=== PATIENT | female | born 1990 | race Caucasian/White ===

== ENCOUNTER 2020-05-28 21:41 | Inpatient (IN) | payer BC, OTHER ==
--- NOTE | 2020-05-28 21:58 | EDM.PDOC ---
ED HPI GENERAL MEDICAL PROBLEM - General Chief Complaint: Abdominal Pain Stated Complaint: EMS ARRIVAL Time Seen by Provider: 05/28/20 21:43 Source of Information: Reports: Patient, EMS History Limitations: Reports: No Limitations - History of Present Illness INITIAL COMMENTS - FREE TEXT/NARRATIVE: 30-year-old female with history of chronic alcohol abuse presents with abdominal pain. She was seen earlier today at the ER and [place] and was diagnosed with pancreatitis. She was given 10 mg IV Reglan, fentanyl 50 MCG, 1 L LR, 8 mg morphine. Her lipase was 616. CT scan was performed there demonstrating acute pancreatitis with no necrosis or fluid collection. She was sent here for assessment for gallbladder etiology given lack of ultrasound at [place]. She complains of abdominal pain that has been constant and worsening over the last 3 days, described as sharp, diffuse, associated with nausea, vomiting. Exacerbated with alcohol. Denies fever, chills, chest pain, dysuria. She drinks 10 shots of vodka every day, her last 10 shots was yesterday. ROS: A 10-point review of systems, other than pertinent positives and negatives as stated per HPI, is otherwise negative PHYSICAL EXAM General: AOx4, GCS = 15, moderate distress HEENT: dry mucous membrane Neck: supple, no meningismus, no Kernig or Brudzinski Cardiac: S1S2 RRR Respiratory: CTAB, no crackles or rales, no wheezing Abdomen: diffuse ttp, epigastric > RUQ. no rebound or guarding, nondistended, no pulsatile mass. Back: nontender Musculoskeletal: NVI distally, no deformity Neuro: No focal deficits, CN 2 - 12 WNL. Upper Abdomen Pain Score (Numeric/FACES): 10 - Related Data Allergies Allergy/AdvReac Type Severity Reaction Status Date / Time No Known Allergies Allergy Verified 05/28/20 21:53 Home Meds: Home Meds . [No Known Home Meds] 05/28/20 [History] ED ROS GENERAL - Review of Systems Review Of Systems: Comprehensive ROS is negative, except as noted in HPI. ED EXAM, GI/ABD - Physical Exam Exam: See Below (see dictation) Course - Vital Signs Last Recorded V/S: Last Vital Signs Temp 97.7 F 05/28/20 21:48 Pulse 95 05/28/20 23:25 Resp 14 05/28/20 23:25 BP 144/99 H 05/28/20 23:25 Pulse Ox 96 05/28/20 23:25 - Orders/Labs/Meds Orders: Active Orders 24 hr Category Date Time Status Admission Status [Patient Status] [ADT] Stat ADT 05/28/20 23:32 Ordered Abdomen Ltd [US] Stat Exams 05/28/20 21:43 Taken CORONAVIRUS COVID-19 RAPID [MOLEC] Stat Lab 05/28/20 23:15 Received Labs: Laboratory Tests 05/28/20 05/28/20 Range/Units 22:18 22:18 WBC 10.76 (4.0-11.0) K/uL RBC 4.51 (4.30-5.90) M/uL Hgb 15.0 (12.0-16.0) g/dL Hct 43.4 (36.0-46.0) % MCV 96.2 (80.0-98.0) fL MCH 33.3 H (27.0-32.0) pg MCHC 34.6 (31.0-37.0) g/dL RDW Std Deviation 45.0 (28.0-62.0) fl RDW Coeff of Vanessa 13 (11.0-15.0) % Plt Count 120 L (150-400) K/uL MPV 9.50 (7.40-12.00) fL Neut % (Auto) 84.6 H (48.0-80.0) % Lymph % (Auto) 6.0 L (16.0-40.0) % [place] % (Auto) 9.3 (0.0-15.0) % Eos % (Auto) 0.0 (0.0-7.0) % Baso % (Auto) 0.1 (0.0-1.5) % Neut # (Auto) 9.1 H (1.4-5.7) K/uL Lymph # (Auto) 0.7 (0.6-2.4) K/uL [place] # (Auto) 1.0 H (0.0-0.8) K/uL Eos # (Auto) 0.0 (0.0-0.7) K/uL Baso # (Auto) 0.0 (0.0-0.1) K/uL Nucleated RBC % 0.0 /100WBC Nucleated RBCs # 0 K/uL Sodium 137 (136-145) mmol/L Potassium 3.6 (3.5-5.1) mmol/L Chloride 101 (98-107) mmol/L Carbon Dioxide 16.0 L (21.0-32.0) mmol/L BUN 2 L (7.0-18.0) mg/dL Creatinine 0.9 (0.6-1.0) mg/dL Est Cr Clr Drug Dosing 83.74 mL/min Estimated GFR (MDRD) > 60.0 ml/min Glucose 181 H (74-106) mg/dL Calcium 9.0 (8.5-10.1) mg/dL Phosphorus 3.9 (2.6-4.7) mg/dL Magnesium 1.4 L (1.8-2.4) mg/dL Total Bilirubin 1.1 H (0.2-1.0) mg/dL AST 103 H (15-37) IU/L ALT 96 H (14-63) IU/L Alkaline Phosphatase 73 (46-116) U/L Total Protein 7.3 (6.4-8.2) g/dL Albumin 3.8 (3.4-5.0) g/dL Globulin 3.5 (2.6-4.0) g/dL Albumin/Globulin Ratio 1.1 (0.9-1.6) Lipase 4738 H (73-393) U/L Ethyl Alcohol 51 mg/dL Meds: Medications Discontinued Medications Generic Name Dose Route Start Last Admin Trade Name Freq PRN Reason Stop Dose Admin Hydromorphone HCl 1 mg 05/28/20 21:59 05/28/20 22:20 Dilaudid IVPUSH 05/28/20 22:00 1 mg ONETIME ONE Administration Lactated Ringer's 1,000 mls @ 999 mls/hr 05/28/20 21:59 05/28/20 22:19 Ringers, Lactated IV 05/28/20 22:59 999 mls/hr .BOLUS ONE Administration - Re-Assessments/Exams Free Text/Narrative Re-Assessment/Exam: 05/28/20 23:[address] Burden, who agrees to admit to observation, she will assume care at this point. The hospitalist's documentation supersedes all other documentation on this patient with regard to any conflicts or discrepancies from this point forward. Any emergency conditions have been treated to the ability of the ED prior to admission. Departure - Departure Time of Disposition: 23:34 Disposition: Refer to Observation Condition: Good Clinical Impression: Pancreatitis - Discharge Information *PRESCRIPTION DRUG MONITORING PROGRAM REVIEWED*: Not Applicable *COPY OF PRESCRIPTION DRUG MONITORING REPORT IN PATIENT SAUMYA: Not Applicable Instructions: Acute Pancreatitis, [id number] Referrals: PCP,None [Primary Care Provider] - Forms: ED Department Discharge Sepsis Event Note (ED) - Focused Exam Vital Signs: Vital Signs Temp Pulse Resp BP Pulse Ox 05/28/20 23:25 95 14 144/99 H 96 05/28/20 21:48 97.7 F 87 20 147/106 H 98 - My Orders Last 24 Hours: My Active Orders 05/28/20 21:43 Abdomen Ltd [US] Stat 05/28/20 23:15 CORONAVIRUS COVID-19 RAPID [MOLEC] Stat 05/28/20 23:32 Admission Status [Patient Status] [ADT] Stat - Assessment/Plan Last 24 Hours: My Active Orders 05/28/20 21:43 Abdomen Ltd [US] Stat 05/28/20 23:15 CORONAVIRUS COVID-19 RAPID [MOLEC] Stat 05/28/20 23:32 Admission Status [Patient Status] [ADT] Stat
[2020-05-28] MEDS ORDERED: Lactated Ringers 1,000 ML IV ONE (21:59)
[2020-05-28] MEDS ORDERED: HYDROmorphone 1 MG/ML Syringe IVPUSH ONE (21:59)
[2020-05-28 22:47] LABS: BLOOD UREA NITROGEN,BUN 2 mg/dL (7.0-18.0); CHLORIDE,CL 101 mmol/L (98-107); GLUCOSE RANDOM 181 mg/dL (74-106); POTASSIUM,K 3.6 mmol/L (3.5-5.1); SODIUM,NA 137 mmol/L (136-145)
[2020-05-28 23:11] LABS: LIPASE 4738 U/L (73-393)
[2020-05-28] MEDS ORDERED: HYDROmorphone 2 MG/ML Syringe IVPUSH ONE (23:43)
[2020-05-28] MEDS ORDERED: LORazepam 2 MG/ML SDV IVPUSH ONE (23:43)
[2020-05-28] MEDS ORDERED: Lactated Ringers 1,000 ML IV SCH (23:45)
[2020-05-28] MEDS ORDERED: Ondansetron 4 MG/2 ML SDV IVPUSH PRN (23:56)
--- NOTE | 2020-05-28 23:58 | US ---
INDICATION: abd pain, r/o gallstones LIMITED ABDOMEN ULTRASOUND Technique: Multiple sonographic images were performed over the right upper quadrant. Comparison: 05/28/2020 CT abdomen and pelvis (report only). Findings: The gallbladder appears normal with no stones or wall thickening. There was no sonographic Michael`s sign. No intrahepatic biliary dilatation is seen and the common bile duct is normal in caliber, measuring 5 mm in diameter. The pancreas is prominent, possibly due to the acute pancreatitis shown on the earlier CT. A 2.2 x 2.7 x 1.3 centimeter fluid collection is seen medial to the gallbladder, also possibly related to the patient`s pancreatitis. The liver shows diffuse prominence of echogenicity suggesting fatty infiltration. The right kidney is unremarkable. IMPRESSION: 1. No cholelithiasis identified. 2. Prominent pancreas, possibly due to acute pancreatitis as suggested on earlier CT. 3. Nonspecific 2.2 x 2.7 x 1.3 centimeter fluid collection medial to the gallbladder, also possibly related to the patient`s acute pancreatitis. 4. Probable fatty infiltration of the liver. QUOC GUTHRIE MD [employer] Dictated by Emmanuel Guthrie MD @ 05/28/2020 11:55:25 PM Dictated by: Emmanuel Guthrie MD @ 05/28/2020 23:55:48 (Electronically Signed)
[2020-05-29] MEDS: Morphine 2 MG/ML SYRINGE IVPUSH PRN ×3 (01:30→11:06)
[2020-05-29] MEDS: LORazepam 2 MG/ML SDV IVPUSH PRN ×6 (04:10→23:29)
[2020-05-29 06:52] LABS: CARBON DIOXIDE,CO2 13.9 mmol/L (21.0-32.0); POTASSIUM,K 5.2 mmol/L (3.5-5.1)
[2020-05-29] MEDS: Pantoprazole 40 MG in Sodium Chloride 0.9% 10 ML IV SCH (08:07)
[2020-05-29] MEDS ORDERED: Lactated Ringers 1,000 ML IV ONE ×4 (09:26→17:38)
[2020-05-29] MEDS ORDERED: MVI, Adult with Vitamin K 10 ML, Thiamine 100 MG, Folic Acid 1 MG in Sodium Chloride 0.... IV ONE ×12 (10:18→20:49)
[2020-05-29] MEDS ORDERED: Magnesium Sulfate/Water 2 GM in Premix Bag 1 BAG IV ONE (10:18)
--- NOTE | 2020-05-29 10:20 | PCM.HP.2 ---
H&P History of Present Illness - General Date of Service: 05/29/20 Admit Problem/Dx: Admission Diagnosis/Problem Admission Diagnosis/Problem Pancreatitis - History of Present Illness Initial Comments - Free Text/Narative: 30-year-old female with history of chronic alcohol abuse presents with abdominal pain that started 2 days back. She was seen earlier at the ER at [place] where she received 10 mg IV Reglan, fentanyl 50 MCG, 1 L LR, 8 mg morphine. Her lipase was [address] scan was performed there demonstrating acute pancreatitis with no necrosis or fluid collection. Patient was sebt her for USG of Gallbladder to r/o gallbladder etiology given lack of ultrasound at [place]. She complains of generalized abdominal pain that has been constant and worsening over the last 2 days, described as sharp, diffuse, associated with nausea, vomiting. Denies fever, chills, chest pain, dysuria. She drinks 10 shots of vodka every day, her last 10 shots was yesterday. 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 US of GB was performed here didnt show any stones, did show possible fluid collection medical to gall bladder, although CT abdomen with contrast was negative for any collection. Patient is being admitted for further management. Upper Abdomen Pain Score (Numeric/FACES): 8 - Related Data Allergies/Adverse Reactions: Allergies Allergy/AdvReac Type Severity Reaction Status Date / Time No Known Allergies Allergy Verified 05/29/20 01:36 Home Medications: Home Meds . [No Known Home Meds] 05/28/20 [History] Past Medical History Gastrointestinal History: Reports: Pancreatitis Psychiatric History: Reports: Addiction Social & Family History - Family History Family Medical History: Noncontributory - Tobacco Use Smoking Status *Q: Never Smoker Years of Tobacco use: 10 Packs/Tins Daily: 0.5 - Caffeine Use Caffeine Use: Reports: Soda - Alcohol Use Days Per Week of Alcohol Use: 7 Number of Drinks Per Day: 11 Total Drinks Per Week: 77 Date of Last Drink: 05/28/20 Time of Last Drink: 11:00 - Recreational Drug Use Recreational Drug Use: No Drug Use in Last 12 Months: Yes Recreational Drug Type: Reports: Cocaine, Marijuana/Hashish Recreational Drug Use Frequency: Socially H&P Review of Systems - Review of Systems: Review Of Systems: See Below General: Reports: Malaise, Weakness, Fatigue. Denies: Fever, Chills Pulmonary: Denies: Shortness of Breath, Wheezing Cardiovascular: Denies: Chest Pain, Palpitations Gastrointestinal: Reports: Abdominal Pain, Anorexia, Decreased Appetite, Nausea, Vomiting. Denies: Black Stool, Bloody Stool, Constipation, Diarrhea, Difficulty Swallowing Genitourinary: Denies: Dysuria, Frequency, Burning Musculoskeletal: Denies: Neck Pain, Shoulder Pain Skin: Denies: Cyanosis, Jaundice, Mottled Psychiatric: Reports: Anxiety. Denies: Confusion, Depression, Mood Lability, Agitation, Suicidal Ideation, Homicidal Ideation Neurological: Denies: Confusion, Dizziness Hematologic/Lymphatic: Denies: Easy Bleeding, Easy Bruising Exam - Exam Exam: See Below - Vital Signs Vital Signs: Last Vital Signs Temp 36.6 C 05/29/20 08:00 Pulse 123 H 05/29/20 08:00 Resp 17 05/29/20 08:00 BP 163/104 H 05/29/20 08:00 Pulse Ox 97 05/29/20 08:00 Weight: 74.4 kg - Exam General: Alert, Oriented, Cooperative, Mild Distress Neck: Supple, Trachea Midline Lungs: Clear to Auscultation, Normal Respiratory Effort Cardiovascular: Regular Rate, Regular Rhythm GI/Abdominal Exam: Normal Bowel Sounds, Soft, No Mass, Tender. No: Non-Tender, Abnormal Bowel Sounds Extremities: Normal Inspection, Normal Range of Motion Neuro Extensive - Mental Status: Alert, Oriented x3, Normal Cognition. No: Disorientation to Person, Disorientation to Place Psychiatric: Alert, Normal Affect, Normal Mood, Withdrawal Symptoms - Patient Data Lab Results Last 24 hrs: Laboratory Results - last 24 hr 05/28/20 05/28/20 05/28/20 Range/Units 22:18 22:18 23:15 WBC 10.76 (4.0-11.0) K/uL RBC 4.51 (4.30-5.90) M/uL Hgb 15.0 (12.0-16.0) g/dL Hct 43.4 (36.0-46.0) % MCV 96.2 (80.0-98.0) fL MCH 33.3 H (27.0-32.0) pg MCHC 34.6 (31.0-37.0) g/dL RDW Std Deviation 45.0 (28.0-62.0) fl RDW Coeff of Vanessa 13 (11.0-15.0) % Plt Count 120 L (150-400) K/uL MPV 9.50 (7.40-12.00) fL Neut % (Auto) 84.6 H (48.0-80.0) % Lymph % (Auto) 6.0 L (16.0-40.0) % [place] % (Auto) 9.3 (0.0-15.0) % Eos % (Auto) 0.0 (0.0-7.0) % Baso % (Auto) 0.1 (0.0-1.5) % Neut # (Auto) 9.1 H (1.4-5.7) K/uL Lymph # (Auto) 0.7 (0.6-2.4) K/uL [place] # (Auto) 1.0 H (0.0-0.8) K/uL Eos # (Auto) 0.0 (0.0-0.7) K/uL Baso # (Auto) 0.0 (0.0-0.1) K/uL Nucleated RBC % 0.0 /100WBC Nucleated RBCs # 0 K/uL Sodium 137 (136-145) mmol/L Potassium 3.6 (3.5-5.1) mmol/L Chloride 101 (98-107) mmol/L Carbon Dioxide 16.0 L (21.0-32.0) mmol/L BUN 2 L (7.0-18.0) mg/dL Creatinine 0.9 (0.6-1.0) mg/dL Est Cr Clr Drug Dosing 83.74 mL/min Estimated GFR (MDRD) > 60.0 ml/min Glucose 181 H (74-106) mg/dL Calcium 9.0 (8.5-10.1) mg/dL Phosphorus 3.9 (2.6-4.7) mg/dL Magnesium 1.4 L (1.8-2.4) mg/dL Total Bilirubin 1.1 H (0.2-1.0) mg/dL AST 103 H (15-37) IU/L ALT 96 H (14-63) IU/L Alkaline Phosphatase 73 (46-116) U/L Total Protein 7.3 (6.4-8.2) g/dL Albumin 3.8 (3.4-5.0) g/dL Globulin 3.5 (2.6-4.0) g/dL Albumin/Globulin Ratio 1.1 (0.9-1.6) Lipase 4738 H (73-393) U/L Ethyl Alcohol 51 mg/dL COVID-19 (NEREYDA) NEGATIVE (NEGATIVE) 05/29/20 05/29/20 Range/Units 06:00 06:00 WBC 12.80 H (4.0-11.0) K/uL RBC 4.43 (4.30-5.90) M/uL Hgb 14.8 (12.0-16.0) g/dL Hct 44.3 (36.0-46.0) % MCV 100.0 H (80.0-98.0) fL MCH 33.4 H (27.0-32.0) pg MCHC 33.4 (31.0-37.0) g/dL RDW Std Deviation 48.5 (28.0-62.0) fl RDW Coeff of Vanessa 13 (11.0-15.0) % Plt Count 120 L (150-400) K/uL MPV 10.20 (7.40-12.00) fL Neut % (Auto) 85.6 H (48.0-80.0) % Lymph % (Auto) 4.6 L (16.0-40.0) % [place] % (Auto) 9.8 (0.0-15.0) % Eos % (Auto) 0.0 (0.0-7.0) % Baso % (Auto) 0.0 (0.0-1.5) % Neut # (Auto) 11.0 H (1.4-5.7) K/uL Lymph # (Auto) 0.6 (0.6-2.4) K/uL Haskell # (Auto) 1.3 H (0.0-0.8) K/uL Eos # (Auto) 0.0 (0.0-0.7) K/uL Baso # (Auto) 0.0 (0.0-0.1) K/uL Nucleated RBC % 0.0 /100WBC Nucleated RBCs # 0 K/uL Sodium 134 L (136-145) mmol/L Potassium 5.2 H (3.5-5.1) mmol/L Chloride 97 L (98-107) mmol/L Carbon Dioxide 13.9 L (21.0-32.0) mmol/L BUN 3 L (7.0-18.0) mg/dL Creatinine 1.5 H (0.6-1.0) mg/dL Est Cr Clr Drug Dosing 50.24 mL/min Estimated GFR (MDRD) 41.3 ml/min Glucose 284 H (74-106) mg/dL Calcium 9.4 (8.5-10.1) mg/dL Phosphorus 4.8 H (2.6-4.7) mg/dL Magnesium 1.4 L (1.8-2.4) mg/dL Total Bilirubin (0.2-1.0) mg/dL AST (15-37) IU/L ALT (14-63) IU/L Alkaline Phosphatase (46-116) U/L Total Protein (6.4-8.2) g/dL Albumin (3.4-5.0) g/dL Globulin (2.6-4.0) g/dL Albumin/Globulin Ratio (0.9-1.6) Lipase 5556 H (73-393) U/L Ethyl Alcohol mg/dL COVID-19 (NEREYDA) (NEGATIVE) Result Diagrams: 05/29/20 06:00 05/29/20 06:00 Sepsis Event Note - Evaluation Sepsis Screening Result: Sepsis Risk - Focused Exam Vital Signs: Vital Signs Temp Pulse Resp BP Pulse Ox Pulse Ox 05/29/20 08:00 36.6 C 123 H 17 163/104 H 97 05/29/20 07:35 36.6 C 126 H 18 168/109 H 99 05/29/20 04:00 36.8 C 95 17 145/90 H 98 05/29/20 01:02 95 05/29/20 00:33 37.0 C 110 H 15 145/99 H 95 05/29/20 00:16 121 H 14 134/88 97 05/28/20 23:25 95 14 144/99 H 96 Date Exam was Performed: 05/29/20 Time Exam was Performed: 12:31 - Problem List (1) Alcohol abuse SNOMED Code(s): 25592976 ICD Code: F10.10 - ALCOHOL ABUSE, UNCOMPLICATED Status: Acute Current Visit: Yes (2) Alcohol withdrawal SNOMED Code(s): 074293179 ICD Code: F10.239 - ALCOHOL DEPENDENCE WITH WITHDRAWAL, UNSPECIFIED Status: Acute Current Visit: Yes (3) Pancreatitis SNOMED Code(s): 53729552 ICD Code: K85.90 - ACUTE PANCREATITIS WITHOUT NECROSIS OR INFECTION, UNSP Status: Acute Current Visit: Yes (4) Leucocytosis SNOMED Code(s): 435633034, 143110396 ICD Code: D72.829 - ELEVATED WHITE BLOOD CELL COUNT, UNSPECIFIED Status: Acute Current Visit: Yes Problem List Initiated/Reviewed/Updated: Yes Orders Last 24hrs: Active Orders 24 hr Category Date Time Status Admission Status [Patient Status] [ADT] Stat ADT 05/28/20 23:32 Active Ambulate [RC] ASDIRECTED Care 05/29/20 00:04 Active CIWAA Assessment [RC] Q4H Care 05/29/20 00:00 Active Oxygen Therapy [RC] ASDIRECTED Care 05/29/20 00:04 Active Vital Signs [RC] Q4H Care 05/28/20 23:55 Active NPO [Nothing Per Oral Diet] [DIET] Diet 05/29/20 Breakfast Active LORazepam [Ativan] Med 05/28/20 23:58 Active See Protocol IVPUSH Q4H PRN Lactated Ringers [Ringers, Lactated] 1,000 ml Med 05/29/20 00:15 Active IV ASDIRECTED Lactated Ringers [Ringers, Lactated] 1,000 ml Med 05/29/20 09:26 Active IV ONETIME MVI, Adult with Vitamin K [Infuvite Adult] 10 ml Med 05/29/20 10:18 Ordered Thiamine [Vitamin B-1] 100 mg Folic Acid 1 mg Sodium Chloride 0.9% [Normal Saline] 1,000 ml IV ONETIME Magnesium Sulfate/Water [Magnesium Sulfate in Water Med 05/29/20 10:18 Ordered Premix] 2 gm Premix Bag 1 bag IV ONETIME Morphine Med 05/28/20 23:55 Active 2 mg IVPUSH Q4H PRN Ondansetron [Zofran] Med 05/28/20 23:56 Active 4 mg IVPUSH Q4H PRN Pantoprazole [ProTONIX IV] 40 mg Med 05/29/20 09:00 Active Sodium Chloride 0.9% [Normal Saline] 10 ml IV DAILY Piperacillin/Tazobactam [Piperacil-Tazobact] 3.375 gm Med 05/29/20 10:30 Ordered Sodium Chloride 0.9% [Normal Saline] 50 ml IV Q8H chlordiazePOXIDE [Librium] Med 05/29/20 10:30 Ordered 25 mg PO BID Medication Orders Pantoprazole Sodium 40 mg/ (Sodium Chloride) 10 mls @ 300 mls/hr IV DAILY KOREY Last Admin: 05/29/20 08:07 Dose: 300 mls/hr Documented by: SWATI Lactated Ringer's (Ringers, Lactated) 1,000 mls @ 125 mls/hr IV ASDIRECTED KOREY Lactated Ringer's (Ringers, Lactated) 1,000 mls @ 999 mls/hr IV ONETIME ONE Stop: 05/29/20 10:26 Last Admin: 05/29/20 09:33 Dose: 999 mls/hr Documented by: RHONA Piperacillin Sod/Tazobactam (Sod 3.375 gm/ Sodium Chloride) 100 mls @ 200 mls/hr IV Q8H KOREY Magnesium Sulfate 2 gm/ Premix 50 mls @ 50 mls/hr IV ONETIME ONE Stop: 05/29/20 11:17 Multivitamins/Minerals 10 ml/Thiamine HCl 100 mg/ Folic Acid 1 mg/ Sodium Chloride 1,011.2 mls @ 200 mls/hr IV ONETIME ONE Stop: 05/29/20 15:21 Lorazepam (Ativan) 0 mg IVPUSH Q4H PRN; Protocol PRN Reason: Withdrawal Symptoms Last Admin: 05/29/20 08:10 Dose: 2 mg Documented by: Admin: 05/29/20 04:10 Dose: 2 mg Documented by: SANTIAGO Morphine Sulfate (Morphine) 2 mg IVPUSH Q4H PRN PRN Reason: Pain Last Admin: 05/29/20 06:16 Dose: 2 mg Documented by: Admin: 05/29/20 01:30 Dose: 2 mg Documented by: SANTIAGO Ondansetron HCl (Zofran) 4 mg IVPUSH Q4H PRN PRN Reason: Nausea/Vomitting Last Admin: 05/29/20 07:10 Dose: 4 mg Documented by: SANTIAGO Assessment/Plan Comment:: 30 y/o F admitted for pancreatitis Keep patient NPO Start IV fluids Start IV PPI This AM labs significant for leucocytosis, along with tachycardia, risk for sepsis Admit to tele Will check UA to r/o UTI Start IV Zosyn,obtain Blood cultures,obtain lactate Give another bolus of IV fluids LR Will consider obtaining repeat CT abdomen with contrast in AM if kidney function is better Lovenox for DVT ppx Monitor and replete electrolytes as needed
[2020-05-29] MEDS: Lactated Ringers 1,000 ML IV SCH ×3 (10:42→20:59)
[2020-05-29] MEDS: Piperacillin/Tazobactam 3.375 GM in Sodium Chloride 0.9% 100 ML IV SCH ×2 (10:43→18:44)
[2020-05-29] MEDS: chlordiazePOXIDE 25 MG Cap PO SCH ×2 (10:50→20:07)
[2020-05-29 13:30] LABS: CARBON DIOXIDE,CO2 16.1 mmol/L (21.0-32.0); POTASSIUM,K 4.9 mmol/L (3.5-5.1)
--- NOTE | 2020-05-29 14:13 | PN ---
THC Physician - Brief Progress [id number]/12/2020 13:53[facility] Jermaine castillo [place] - SUHAIL (JOSE ANTONIO) - SUHAIL PELON PREEZJeffersonDate of Service 05/29/2020 13:53HPI/Events of Note eICU admission note:30-year-old female with no significant past medical history prese nted to the hospital with abdominal pain. There was a fluid collection seen on ultrasound next toGal lbladderPatient was found to have very elevated amylase and lipase. Her creatinine also started to c ome up with hyperkalemiaPatient was admitted to the ICU for fluid resuscitation for her lactic acidos is and acute pancreatitisPatient is hemodynamically stable right now and she is receiving 30 cc/kgPat ient is tachycardic to 130s sinus tachycardiaImpression:Continue wide spectrum antibioticBlood cultur esSurgery consult as soon as possibleContinue fluid resuscitation with IV fluid 30 cc/kg of Ringer la ctatePatient afterward to be on 200 mm/hRepeat lactic acid in 4 hours and every 4 hours until normali zedGI and DVT prophylaxisCase was discussed with the bedside nurse and the primary care physicianPati ent was seen on camera and she seems to be stableThanks so much for allowing us to take care of your patient.Interventions Major-Other: pancreatitisMinor-Clinical assessment - ordering diagnostic testsE lectronically Signed by: TOMEKA CANTU) on 05/29/2020 14:12
--- NOTE | 2020-05-29 15:21 | PCM.SN.2 ---
- Free Text/Narrative Note: pt seen, chart reviewed; physical exam, us, hx did not support cholecystitis or gallstone pancreatitis; with pt's hx of drinking and pain of 6 mos or 3 wks hx, likely alcohol pancreatitis; prev CT revealed acute pancreatitis with fluid, likely same fluid collection seen in US here; agree w NPO, agressive IVF resuscitation, abx; may benefit from repeat CT w contrast to stage pancreatitis, or if concern about ELLIOTT, would consider MRCP; would follow pt w you [id number]
[2020-05-29] MEDS: Enoxaparin 40 MG/0.4 ML Syringe SUBCUT SCH (15:52)
[2020-05-29] MEDS ORDERED: LORazepam 2 MG/ML SDV ONE (17:29)
--- NOTE | 2020-05-29 17:48 | PN ---
THC Physician - Brief Progress [id number]/12/2020 16:15[facility] Jermaine Mejía [place] - SUHAIL (JOSE ANTONIO) - PELON HARTDate of Service 05/29/2020 16:15HPI/Events of Note Sepsis Reassessment Focused ExamPatient examined via telepresence : the patient is alert and or iented. she answered my questions. patient's pain is getting better. I have performed a sepsis reasse ssment focused exam. Physical exam/systems review findings and plan:continue fluids ressus. rech ad lactic acid in 4 hours.Interventions Major-Sepsis - evaluation and managementMinor-Clinical asses sment - ordering diagnostic tests
[2020-05-29] MEDS ORDERED: chlordiazePOXIDE 25 MG Cap PO ONE (18:19)
[2020-05-30] MEDS ORDERED: Vancomycin 1 GM AdvVial ONE (00:23)
[2020-05-30] MEDS ORDERED: Sodium Chloride 0.9% 250 ML ONE (00:24)
[2020-05-30] MEDS: Piperacillin/Tazobactam 3.375 GM in Sodium Chloride 0.9% 100 ML IV SCH ×3 (02:49→18:19)
[2020-05-30] MEDS: Lactated Ringers 1,000 ML IV SCH ×4 (03:54→19:52)
[2020-05-30 06:26] LABS: BLOOD UREA NITROGEN,BUN 7 mg/dL (7.0-18.0); CARBON DIOXIDE,CO2 21.2 mmol/L (21.0-32.0); CHLORIDE,CL 97 mmol/L (98-107); GLUCOSE RANDOM 249 mg/dL (74-106); POTASSIUM,K 4.3 mmol/L (3.5-5.1); SODIUM,NA 131 mmol/L (136-145)
[2020-05-30] MEDS ORDERED: Lactated Ringers 1,000 ML IV ONE (08:05)
[2020-05-30] MEDS ORDERED: MAGNESIUM SULFATE IV ONE ×2 (08:09→08:30)
[2020-05-30] MEDS ORDERED: POTASSIUM PHOSPHATES IV ONE ×2 (08:09→08:30)
[2020-05-30] MEDS ORDERED: SODIUM CHLORIDE IV ONE ×2 (08:09→08:30)
[2020-05-30] MEDS: Pantoprazole 40 MG in Sodium Chloride 0.9% 10 ML IV SCH (08:42)
[2020-05-30 08:43] LABS: HEMOGLOBIN A1C 5.1 % (4.5-6.2)
[2020-05-30] MEDS: Folic Acid 50 MG/10 ML MDV IV SCH (08:43)
[2020-05-30] MEDS: chlordiazePOXIDE 25 MG Cap PO SCH ×2 (08:44→20:58)
[2020-05-30] MEDS: Thiamine 100 MG in Sodium Chloride 0.9% 100 ML IV SCH (09:21)
--- NOTE | 2020-05-30 09:21 | CONS ---
DATE OF CONSULTATION: 05/29/2020 DATE OF : 1990 PRIMARY CARE PHYSICIAN: None PCP This is a consult from Dr. Burden. CONSULTING QUESTION: Pancreatitis. HISTORY OF PRESENT ILLNESS: The patient is a 30-year-old lady, has a long history of alcohol abuse, and per the patient is drinking 10 shots of vodka every day, and seems to have abdominal pain for several months and hurts with drinking. For the last 3 days, pain is really getting very bad. She says she got to the emergency room at [place] and got a CAT scan and did not show anything. Concern about gallbladder, transferred the patient to our facility for gallbladder study. Ultrasounds done does not show any stone or ductal dilatation, and common bile duct is normal at 5 mm. Also, ultrasound shows prominent pancreas, possibly due to pancreatitis, and Surgery was consulted. Currently, the patient is a little bit groggy and drowsy. Apparently, she already got some pain medication, and the patient has tried very hard to stay awake to carry on a conversation. Denied jaundice, dark urine, white stool, and denied black stool. Denied bright red blood per rectum. Admits the pain has been on and off for a long time, 6 months to a week, anyway it is not a 1-day situation and hurts whenever she drinks. MEDICATION: Please refer to nursing note for details. MEDICAL HISTORY: Denied diabetes, NH, CVA, hypertension. PAST SURGICAL HISTORY: No surgery in the past, and no babies. PHYSICAL EXAMINATION: GENERAL: The patient is in and out of drowsiness, probably just getting some pain medication. However, when the patient is awake, alert, eyes wide open, she is moving around in her bed as if there is nothing. HEENT: Normocephalic and atraumatic. Sclerae are anicteric. LUNGS: Clear to auscultation. HEART: Regular rate and rhythm. ABDOMEN: Mildly distended, but soft. Pain in the left upper quadrant. No rebound tenderness. No surgical scar. No hernia. LABORATORY DATA: Upon consultation, white count is 12.8; H and H are 14.8 and 44; and platelets are 120, low. Lactate is 6.9, high. Sodium 132, potassium 4.9, calcium 9.6, BUN is 4, creatinine is 1.3, T-bilirubin is 1.1. AST and ALT are elevated at 103 and 96, alkaline phosphatase 73, lipase is 5556. Ethyl alcohol was 51 yesterday. COVID-19 negative. IMPRESSION: Abdominal pain, quite relieved with whatever pain medication or morphine given. Although the patient complained the pain is a 5 on pain scale, she is really moving in her bed as if there is nothing going on of course we can fall back to drowsiness. No right upper quadrant tenderness, and ultrasound does not show any ductal dilatation or wall thickening. There is some collection around the gallbladder fossa. We will be not be surprised it is probably from the pancreatitis. Does not seem any indication for gallstone pancreatitis as gallstone pancreatitis usually has pancreas and lipase running into 20,000 or 50,000 area. Also, gallstone pancreatitis usually has a rapid shot up to 40,000 and then rapid decay in about a day or 36 hours to normal. That is the classic pattern of gallstone pancreatitis, which is not the case of the patient. The patient has a mildly elevated amylase and lipase and with a long history of alcohol, likely this is alcoholic pancreatitis. Await CAT scan with contrast to look at the pancreas and to stage the pancreatitis staging. For the time being, there is no surgical intervention for her. We will continue to follow the patient with you. N.p.o., IV fluid resuscitation, and await the CAT scan imaging from outside as with the patient has elevated creatinine, not a good idea to repeat CAT scan with contrast. Thanks for the consult. We will follow the patient with you. As always, thank you for the kind referral. AMY / GOPAL /[id number]
--- NOTE | 2020-05-30 09:22 | PN ---
THC Physician - Brief Progress [id number]/13/2020 08:52[facility] Jermaine castillo, DICK - RAKESHN (MARLEEN) - SUHAIL PELON PEREZJeffersonDate of Service 05/30/2020 08:52HPI/Events of Note eICU Progress [id number] female presented with abdominal pain in the setting of EtOH abuse. There was a fluid collection seen on ultrasound next to gallbladder. Concurrent elevati on of lipase, lactic acid, creatinine. Underwent fluid resuscitation, and was started on empiric ant ibiotics.Cameraxpatient is asleep, appears to be comfortable and in no distress nextVitalsxblood pres sure 134/94, heart rate 113 appears to be normal sinus rhythm, saturating 96% on room airEMR notes an d objective data reviewedHas received close of 6 L of crystalloid resuscitationLipase downtrending la st 4158, lactic acid improving last 2.4, serum creatinine has normalizedCOVID PCR negativeMicro revie wxno available blood cultures are seen (bedside RN reports they were sent and pending at this time), UA is negativeeICU impressionAcute nonnecrotizing alcoholic pancreatitisAlcohol abuseAlcohol withdraw al/risk ofLactic acidosisSinus tachycardiaQI measuresxVTE prophylaxis, GI prophylaxis, glycemic contr oleICU recommendations- Presentation is consistent with acute pancreatitis with lab derangements expl ained by the aforementioned etiology, and in the absence of any extra pancreatic infection which the patient has no evidence of having would recommend discontinuation of antibiotics once pending blood c ultures come back negative. -Trend lactic acid untill clear- Continue fluid resuscitation with lactat ed Ringer at 200 cc an hour during the initial 24 to 48 hours targeting urine output greater than 0.5 to 1 cc/kg/h, hematocrit goal between 35 to 44%- Pain control PRN- Alcohol withdrawal management per institutional policy, noted to be on fixed dose Librium- Continue thiamine and folic acid supplement ation- QI measures notedxVTE prophylaxis with Lovenox, PPI, adequate glycemic control with blood suga r target between 140 - 180Discussed care with bedside RN.Thank you for allowing us to participate in the care of your patient. The patient is critically ill with severe metabolic derangement(s) and req uires high complexity decision making for assessment and support including volume resuscitation; Crit ical care; 40 minutes total evaluation time Interventions Major-Hypovolemia - evaluation and treatmen t with fluidsMinor-Communication with other healthcare providers and/or family, Other: Severe alcohol ic pancreatitis
--- NOTE | 2020-05-30 11:36 | PCM.PN ---
- General Info Date of Service: 05/30/20 Admission Dx/Problem (Free Text): Admission Diagnosis/Problem Admission Diagnosis/Problem Pancreatitis Subjective Update: Feeling ok this morning. No chest pain or SOB. Denies hallucinations this morning. Tremors continue along with ataxia Functional Status: Reports: Pain Controlled, Ambulating. Denies: Tolerating Diet - Review of Systems General: Reports: No Symptoms. Denies: Fatigue, Malaise Pulmonary: Reports: No Symptoms. Denies: Shortness of Breath Cardiovascular: Reports: No Symptoms. Denies: Chest Pain Gastrointestinal: Reports: No Symptoms. Denies: Abdominal Pain, Nausea, Vomiting Genitourinary: Reports: No Symptoms. Denies: Dysuria, Frequency Neurological: Reports: Tremors, Difficulty Walking Psychiatric: Denies: Anxiety, Agitation, Hallucinations, Suicidal Ideation - Patient Data Vitals - Most Recent: Last Vital Signs Temp 99.5 F 05/30/20 08:00 Pulse 120 H 05/29/20 19:00 Resp 38 H 05/30/20 10:00 BP 153/109 H 05/30/20 10:00 Pulse Ox 92 L 05/30/20 10:00 Weight - Most Recent: 79.379 kg I&O - Last 24 Hours: Intake & Output 05/29/20 05/30/20 05/30/20 22:59 06:59 14:59 Intake Total 1220 4536 Output Total 200 1600 Balance 1020 2936 Lab Results Last 24 Hours: Laboratory Results - last 24 hr 05/29/20 05/29/20 05/29/20 Range/Units 12:46 12:59 14:20 WBC (4.0-11.0) K/uL RBC (4.30-5.90) M/uL Hgb (12.0-16.0) g/dL Hct (36.0-46.0) % MCV (80.0-98.0) fL MCH (27.0-32.0) pg MCHC (31.0-37.0) g/dL RDW Std Deviation (28.0-62.0) fl RDW Coeff of Vanessa (11.0-15.0) % Plt Count (150-400) K/uL MPV (7.40-12.00) fL Neut % (Auto) (48.0-80.0) % Lymph % (Auto) (16.0-40.0) % [place] % (Auto) (0.0-15.0) % Eos % (Auto) (0.0-7.0) % Baso % (Auto) (0.0-1.5) % Neut # (Auto) (1.4-5.7) K/uL Lymph # (Auto) (0.6-2.4) K/uL [place] # (Auto) (0.0-0.8) K/uL Eos # (Auto) (0.0-0.7) K/uL Baso # (Auto) (0.0-0.1) K/uL Nucleated RBC % /100WBC Nucleated RBCs # K/uL ABG pH 7.347 L (7.35-7.45) ABG pCO2 28 L (35-45) mmHG ABG pO2 123 H (75-100) mmHG ABG HCO3 15 L (22-26) mEq/L ABG Total CO2 13.8 ABG Base Excess -8.9 L (-2.0-2.0) Lactate 6.9 H* (0.20-2.00) mmol/L Sodium 132 L (136-145) mmol/L Potassium 4.9 (3.5-5.1) mmol/L Chloride 98 (98-107) mmol/L Carbon Dioxide 16.1 L (21.0-32.0) mmol/L BUN 4 L (7.0-18.0) mg/dL Creatinine 1.3 H (0.6-1.0) mg/dL Est Cr Clr Drug Dosing 57.97 mL/min Estimated GFR (MDRD) 48.8 ml/min Glucose 290 H (74-106) mg/dL POC Glucose (60-110) mg/dL Hemoglobin A1c (4.5-6.2) % Calcium 9.6 (8.5-10.1) mg/dL Phosphorus (2.6-4.7) mg/dL Magnesium (1.8-2.4) mg/dL Total Bilirubin (0.2-1.0) mg/dL AST (15-37) IU/L ALT (14-63) IU/L Alkaline Phosphatase (46-116) U/L Total Protein (6.4-8.2) g/dL Albumin (3.4-5.0) g/dL Globulin (2.6-4.0) g/dL Albumin/Globulin Ratio (0.9-1.6) Triglycerides (0-200) mg/dL Cholesterol (50-200) mg/dL LDL Cholesterol, Calc (60-180) mg/dL VLDL Cholesterol (5-55) mg/dL HDL Cholesterol (40-60) mg/dL Cholesterol/HDL Ratio (3.3-6.0) Lipase (73-393) U/L Urine Color Urine Appearance Urine pH (5.0-8.0) Ur Specific Howe (1.001-1.035) Urine Protein (NEGATIVE) mg/dL Urine Glucose (UA) (NEGATIVE) mg/dL Urine Ketones (NEGATIVE) mg/dL Urine Occult Blood (NEGATIVE) Urine Nitrite (NEGATIVE) Urine Bilirubin (NEGATIVE) Urine Urobilinogen (<2.0) EU/dL Ur Leukocyte Esterase (NEGATIVE) Urine RBC (0-2/HPF) Urine WBC (0-5/HPF) Ur Epithelial Cells (NONE-FEW) Urine Bacteria (NEGATIVE) 05/29/20 05/29/20 05/29/20 Range/Units 16:47 17:26 21:31 WBC (4.0-11.0) K/uL RBC (4.30-5.90) M/uL Hgb (12.0-16.0) g/dL Hct (36.0-46.0) % MCV (80.0-98.0) fL MCH (27.0-32.0) pg MCHC (31.0-37.0) g/dL RDW Std Deviation (28.0-62.0) fl RDW Coeff of Vanessa (11.0-15.0) % Plt Count (150-400) K/uL MPV (7.40-12.00) fL Neut % (Auto) (48.0-80.0) % Lymph % (Auto) (16.0-40.0) % [place] % (Auto) (0.0-15.0) % Eos % (Auto) (0.0-7.0) % Baso % (Auto) (0.0-1.5) % Neut # (Auto) (1.4-5.7) K/uL Lymph # (Auto) (0.6-2.4) K/uL [place] # (Auto) (0.0-0.8) K/uL Eos # (Auto) (0.0-0.7) K/uL Baso # (Auto) (0.0-0.1) K/uL Nucleated RBC % /100WBC Nucleated RBCs # K/uL ABG pH (7.35-7.45) ABG pCO2 (35-45) mmHG ABG pO2 (75-100) mmHG ABG HCO3 (22-26) mEq/L ABG Total CO2 ABG Base Excess (-2.0-2.0) Lactate 4.1 H* 3.9 H* (0.20-2.00) mmol/L Sodium (136-145) mmol/L Potassium (3.5-5.1) mmol/L Chloride (98-107) mmol/L Carbon Dioxide (21.0-32.0) mmol/L BUN (7.0-18.0) mg/dL Creatinine (0.6-1.0) mg/dL Est Cr Clr Drug Dosing mL/min Estimated GFR (MDRD) ml/min Glucose (74-106) mg/dL POC Glucose (60-110) mg/dL Hemoglobin A1c (4.5-6.2) % Calcium (8.5-10.1) mg/dL Phosphorus (2.6-4.7) mg/dL Magnesium (1.8-2.4) mg/dL Total Bilirubin (0.2-1.0) mg/dL AST (15-37) IU/L ALT (14-63) IU/L Alkaline Phosphatase (46-116) U/L Total Protein (6.4-8.2) g/dL Albumin (3.4-5.0) g/dL Globulin (2.6-4.0) g/dL Albumin/Globulin Ratio (0.9-1.6) Triglycerides (0-200) mg/dL Cholesterol (50-200) mg/dL LDL Cholesterol, Calc (60-180) mg/dL VLDL Cholesterol (5-55) mg/dL HDL Cholesterol (40-60) mg/dL Cholesterol/HDL Ratio (3.3-6.0) Lipase (73-393) U/L Urine Color DARK YELLOW Urine Appearance CLEAR Urine pH 5.5 (5.0-8.0) Ur Specific [place] 1.025 (1.001-1.035) Urine Protein 30 H (NEGATIVE) mg/dL Urine Glucose (UA) 500 H (NEGATIVE) mg/dL Urine Ketones 15 H (NEGATIVE) mg/dL Urine Occult Blood LARGE H (NEGATIVE) Urine Nitrite NEGATIVE (NEGATIVE) Urine Bilirubin NEGATIVE (NEGATIVE) Urine Urobilinogen 0.2 (<2.0) EU/dL Ur Leukocyte Esterase NEGATIVE (NEGATIVE) Urine RBC 0-3 (0-2/HPF) Urine WBC 0-2 (0-5/HPF) Ur Epithelial Cells FEW (NONE-FEW) Urine Bacteria RARE (NEGATIVE) 05/30/20 05/30/20 05/30/20 Range/Units 01:33 05:35 05:35 WBC 10.53 (4.0-11.0) K/uL RBC 3.80 L (4.30-5.90) M/uL Hgb 12.7 (12.0-16.0) g/dL Hct 37.5 (36.0-46.0) % MCV 98.7 H (80.0-98.0) fL MCH 33.4 H (27.0-32.0) pg MCHC 33.9 (31.0-37.0) g/dL RDW Std Deviation 48.2 (28.0-62.0) fl RDW Coeff of Vanessa 13 (11.0-15.0) % Plt Count 84 L (150-400) K/uL MPV 10.90 (7.40-12.00) fL Neut % (Auto) 70.8 (48.0-80.0) % Lymph % (Auto) 13.6 L (16.0-40.0) % [place] % (Auto) 15.5 H (0.0-15.0) % Eos % (Auto) 0.0 (0.0-7.0) % Baso % (Auto) 0.1 (0.0-1.5) % Neut # (Auto) 7.5 H (1.4-5.7) K/uL Lymph # (Auto) 1.4 (0.6-2.4) K/uL [place] # (Auto) 1.6 H (0.0-0.8) K/uL Eos # (Auto) 0.0 (0.0-0.7) K/uL Baso # (Auto) 0.0 (0.0-0.1) K/uL Nucleated RBC % 0.0 /100WBC Nucleated RBCs # 0 K/uL ABG pH (7.35-7.45) ABG pCO2 (35-45) mmHG ABG pO2 (75-100) mmHG ABG HCO3 (22-26) mEq/L ABG Total CO2 ABG Base Excess (-2.0-2.0) Lactate 2.3 H* (0.20-2.00) mmol/L Sodium 131 L (136-145) mmol/L Potassium 4.3 (3.5-5.1) mmol/L Chloride 97 L (98-107) mmol/L Carbon Dioxide 21.2 (21.0-32.0) mmol/L BUN 7 (7.0-18.0) mg/dL Creatinine 0.9 (0.6-1.0) mg/dL Est Cr Clr Drug Dosing 83.74 mL/min Estimated GFR (MDRD) > 60.0 ml/min Glucose 249 H (74-106) mg/dL POC Glucose (60-110) mg/dL Hemoglobin A1c (4.5-6.2) % Calcium 8.4 L (8.5-10.1) mg/dL Phosphorus 2.1 L (2.6-4.7) mg/dL Magnesium 1.6 L (1.8-2.4) mg/dL Total Bilirubin 6.0 H (0.2-1.0) mg/dL AST 113 H (15-37) IU/L ALT 59 (14-63) IU/L Alkaline Phosphatase 57 (46-116) U/L Total Protein 5.7 L (6.4-8.2) g/dL Albumin 2.9 L (3.4-5.0) g/dL Globulin 2.8 (2.6-4.0) g/dL Albumin/Globulin Ratio 1.0 (0.9-1.6) Triglycerides (0-200) mg/dL Cholesterol (50-200) mg/dL LDL Cholesterol, Calc (60-180) mg/dL VLDL Cholesterol (5-55) mg/dL HDL Cholesterol (40-60) mg/dL Cholesterol/HDL Ratio (3.3-6.0) Lipase (73-393) U/L Urine Color Urine Appearance Urine pH (5.0-8.0) Ur Specific [place] (1.001-1.035) Urine Protein (NEGATIVE) mg/dL Urine Glucose (UA) (NEGATIVE) mg/dL Urine Ketones (NEGATIVE) mg/dL Urine Occult Blood (NEGATIVE) Urine Nitrite (NEGATIVE) Urine Bilirubin (NEGATIVE) Urine Urobilinogen (<2.0) EU/dL Ur Leukocyte Esterase (NEGATIVE) Urine RBC (0-2/HPF) Urine WBC (0-5/HPF) Ur Epithelial Cells (NONE-FEW) Urine Bacteria (NEGATIVE) 05/30/20 05/30/20 05/30/20 Range/Units 05:35 05:35 05:35 WBC (4.0-11.0) K/uL RBC (4.30-5.90) M/uL Hgb (12.0-16.0) g/dL Hct (36.0-46.0) % MCV (80.0-98.0) fL MCH (27.0-32.0) pg MCHC (31.0-37.0) g/dL RDW Std Deviation (28.0-62.0) fl RDW Coeff of Vanessa (11.0-15.0) % Plt Count (150-400) K/uL MPV (7.40-12.00) fL Neut % (Auto) (48.0-80.0) % Lymph % (Auto) (16.0-40.0) % [place] % (Auto) (0.0-15.0) % Eos % (Auto) (0.0-7.0) % Baso % (Auto) (0.0-1.5) % Neut # (Auto) (1.4-5.7) K/uL Lymph # (Auto) (0.6-2.4) K/uL [place] # (Auto) (0.0-0.8) K/uL Eos # (Auto) (0.0-0.7) K/uL Baso # (Auto) (0.0-0.1) K/uL Nucleated RBC % /100WBC Nucleated RBCs # K/uL ABG pH (7.35-7.45) ABG pCO2 (35-45) mmHG ABG pO2 (75-100) mmHG ABG HCO3 (22-26) mEq/L ABG Total CO2 ABG Base Excess (-2.0-2.0) Lactate 2.4 H* (0.20-2.00) mmol/L Sodium (136-145) mmol/L Potassium (3.5-5.1) mmol/L Chloride (98-107) mmol/L Carbon Dioxide (21.0-32.0) mmol/L BUN (7.0-18.0) mg/dL Creatinine (0.6-1.0) mg/dL Est Cr Clr Drug Dosing mL/min Estimated GFR (MDRD) ml/min Glucose (74-106) mg/dL POC Glucose (60-110) mg/dL Hemoglobin A1c 5.1 (4.5-6.2) % Calcium (8.5-10.1) mg/dL Phosphorus (2.6-4.7) mg/dL Magnesium (1.8-2.4) mg/dL Total Bilirubin (0.2-1.0) mg/dL AST (15-37) IU/L ALT (14-63) IU/L Alkaline Phosphatase (46-116) U/L Total Protein (6.4-8.2) g/dL Albumin (3.4-5.0) g/dL Globulin (2.6-4.0) g/dL Albumin/Globulin Ratio (0.9-1.6) Triglycerides (0-200) mg/dL Cholesterol (50-200) mg/dL LDL Cholesterol, Calc (60-180) mg/dL VLDL Cholesterol (5-55) mg/dL HDL Cholesterol (40-60) mg/dL Cholesterol/HDL Ratio (3.3-6.0) Lipase 4158 H (73-393) U/L Urine Color Urine Appearance Urine pH (5.0-8.0) Ur Specific [place] (1.001-1.035) Urine Protein (NEGATIVE) mg/dL Urine Glucose (UA) (NEGATIVE) mg/dL Urine Ketones (NEGATIVE) mg/dL Urine Occult Blood (NEGATIVE) Urine Nitrite (NEGATIVE) Urine Bilirubin (NEGATIVE) Urine Urobilinogen (<2.0) EU/dL Ur Leukocyte Esterase (NEGATIVE) Urine RBC (0-2/HPF) Urine WBC (0-5/HPF) Ur Epithelial Cells (NONE-FEW) Urine Bacteria (NEGATIVE) 05/30/20 05/30/20 05/30/20 Range/Units 05:35 09:40 10:18 WBC (4.0-11.0) K/uL RBC (4.30-5.90) M/uL Hgb (12.0-16.0) g/dL Hct (36.0-46.0) % MCV (80.0-98.0) fL MCH (27.0-32.0) pg MCHC (31.0-37.0) g/dL RDW Std Deviation (28.0-62.0) fl RDW Coeff of Vanessa (11.0-15.0) % Plt Count (150-400) K/uL MPV (7.40-12.00) fL Neut % (Auto) (48.0-80.0) % Lymph % (Auto) (16.0-40.0) % [place] % (Auto) (0.0-15.0) % Eos % (Auto) (0.0-7.0) % Baso % (Auto) (0.0-1.5) % Neut # (Auto) (1.4-5.7) K/uL Lymph # (Auto) (0.6-2.4) K/uL [place] # (Auto) (0.0-0.8) K/uL Eos # (Auto) (0.0-0.7) K/uL Baso # (Auto) (0.0-0.1) K/uL Nucleated RBC % /100WBC Nucleated RBCs # K/uL ABG pH (7.35-7.45) ABG pCO2 (35-45) mmHG ABG pO2 (75-100) mmHG ABG HCO3 (22-26) mEq/L ABG Total CO2 ABG Base Excess (-2.0-2.0) Lactate 2.2 H* (0.20-2.00) mmol/L Sodium (136-145) mmol/L Potassium (3.5-5.1) mmol/L Chloride (98-107) mmol/L Carbon Dioxide (21.0-32.0) mmol/L BUN (7.0-18.0) mg/dL Creatinine (0.6-1.0) mg/dL Est Cr Clr Drug Dosing mL/min Estimated GFR (MDRD) ml/min Glucose (74-106) mg/dL POC Glucose 232 H (60-110) mg/dL Hemoglobin A1c (4.5-6.2) % Calcium (8.5-10.1) mg/dL Phosphorus (2.6-4.7) mg/dL Magnesium (1.8-2.4) mg/dL Total Bilirubin (0.2-1.0) mg/dL AST (15-37) IU/L ALT (14-63) IU/L Alkaline Phosphatase (46-116) U/L Total Protein (6.4-8.2) g/dL Albumin (3.4-5.0) g/dL Globulin (2.6-4.0) g/dL Albumin/Globulin Ratio (0.9-1.6) Triglycerides 162 (0-200) mg/dL Cholesterol 113 (50-200) mg/dL LDL Cholesterol, Calc 70 (60-180) mg/dL VLDL Cholesterol 32 (5-55) mg/dL HDL Cholesterol 11 L (40-60) mg/dL Cholesterol/HDL Ratio 10.3 H (3.3-6.0) Lipase (73-393) U/L Urine Color Urine Appearance Urine pH (5.0-8.0) Ur Specific [place] (1.001-1.035) Urine Protein (NEGATIVE) mg/dL Urine Glucose (UA) (NEGATIVE) mg/dL Urine Ketones (NEGATIVE) mg/dL Urine Occult Blood (NEGATIVE) Urine Nitrite (NEGATIVE) Urine Bilirubin (NEGATIVE) Urine Urobilinogen (<2.0) EU/dL Ur Leukocyte Esterase (NEGATIVE) Urine RBC (0-2/HPF) Urine WBC (0-5/HPF) Ur Epithelial Cells (NONE-FEW) Urine Bacteria (NEGATIVE) Med Orders - Current: Current Medications Chlordiazepoxide HCl (Librium) 50 mg PO BID [facility] Last Admin: 05/30/20 08:44 Dose: 50 mg Documented by: Enoxaparin Sodium (Lovenox) 40 mg SUBCUT Q24H [facility] Last Admin: 05/29/20 15:52 Dose: 40 mg Documented by: Folic Acid (Folic Acid) 1 mg IV DAILY [facility] Last Admin: 05/30/20 08:43 Dose: 1 mg Documented by: Pantoprazole Sodium 40 mg/ (Sodium Chloride) 10 mls @ 300 mls/hr IV DAILY [facility] Last Admin: 05/30/20 08:42 Dose: 300 mls/hr Documented by: Lactated Ringer's (Ringers, Lactated) 1,000 mls @ 200 mls/hr IV ASDIRECTED [facility] Last Admin: 05/30/20 09:18 Dose: 200 mls/hr Documented by: Piperacillin Sod/Tazobactam (Sod 3.375 gm/ Sodium Chloride) 100 mls @ 200 mls/hr IV Q8H [facility] Last Admin: 05/30/20 02:49 Dose: 200 mls/hr Documented by: Thiamine HCl 100 mg/ Sodium (Chloride) 101 mls @ 202 mls/hr IV DAILY [facility] Last Admin: 05/30/20 09:21 Dose: 202 mls/hr Documented by: Magnesium Sulfate 4 gm/Potassium Phosphate 20 mmole/Sodium Chloride 1,014.6667 mls @ 150 mls/hr IV ONETIME ONE Stop: 05/30/20 15:15 Last Admin: 05/30/20 08:44 Dose: 150 mls/hr Documented by: Lorazepam (Ativan) 0 mg IVPUSH Q1H PRN; Protocol PRN Reason: Withdrawal Symptoms Last Admin: 05/29/20 23:29 Dose: 2 mg Documented by: Morphine Sulfate (Morphine) 1 mg IVPUSH Q4H PRN PRN Reason: Pain Ondansetron HCl (Zofran) 4 mg IVPUSH Q4H PRN PRN Reason: Nausea/Vomitting Last Admin: 05/29/20 07:10 Dose: 4 mg Documented by: Discontinued Medications Chlordiazepoxide HCl (Librium) 25 mg PO BID [facility] Last Admin: 05/29/20 20:07 Dose: 25 mg Documented by: Chlordiazepoxide HCl (Librium) 25 mg PO ONETIME ONE Stop: 05/29/20 18:20 Last Admin: 05/29/20 18:38 Dose: 25 mg Documented by: Hydromorphone HCl (Dilaudid) 1 mg IVPUSH ONETIME ONE Stop: 05/28/20 22:00 Last Admin: 05/28/20 22:20 Dose: 1 mg Documented by: Hydromorphone HCl (Dilaudid) 1 mg IVPUSH ONETIME ONE Stop: 05/28/20 23:44 Last Admin: 05/29/20 00:04 Dose: 1 mg Documented by: Lactated Ringer's (Ringers, Lactated) 1,000 mls @ 999 mls/hr IV .BOLUS ONE Stop: 05/28/20 22:59 Last Admin: 05/28/20 22:19 Dose: 999 mls/hr Documented by: Lactated Ringer's (Ringers, Lactated) 1,000 mls @ 125 mls/hr IV ASDIRECTED [facility] Last Admin: 05/29/20 00:00 Dose: 125 mls/hr Documented by: Lactated Ringer's (Ringers, Lactated) 1,000 mls @ 999 mls/hr IV ONETIME ONE Stop: 05/29/20 10:26 Last Admin: 05/29/20 09:33 Dose: 999 mls/hr Documented by: Magnesium Sulfate 2 gm/ Premix 50 mls @ 50 mls/hr IV ONETIME ONE Stop: 05/29/20 11:17 Last Admin: 05/29/20 11:15 Dose: 50 mls/hr Documented by: Multivitamins/Minerals 10 ml/Thiamine HCl 100 mg/ Folic Acid 1 mg/ Sodium Chloride 1,011.2 mls @ 200 mls/hr IV ONETIME ONE Stop: 05/29/20 15:21 Last Admin: 05/29/20 13:18 Dose: Not Given Documented by: Multivitamins/Minerals 10 ml/Thiamine HCl 100 mg/ Folic Acid 1 mg/ Sodium Chloride 1,011.2 mls @ 200 mls/hr IV ONETIME ONE Stop: 05/29/20 17:18 Last Admin: 05/29/20 13:13 Dose: 200 mls/hr Documented by: Lactated Ringer's (Ringers, Lactated) 1,000 mls @ 999 mls/hr IV ONETIME ONE Stop: 05/29/20 13:26 Last Admin: 05/29/20 13:10 Dose: 999 mls/hr Documented by: Vancomycin HCl 1.5 gm/ Premix 300 mls @ 200 mls/hr IV ONETIME ONE Stop: 05/29/20 14:34 Last Admin: 05/29/20 14:30 Dose: 200 mls/hr Documented by: Lactated Ringer's (Ringers, Lactated) 1,000 mls @ 999 mls/hr IV .BOLUS ONE Stop: 05/29/20 14:08 Last Admin: 05/29/20 14:13 Dose: 999 mls/hr Documented by: Vancomycin HCl 1 gm/ Sodium (Chloride) 250 mls @ 166.667 mls/hr IV Q12H [facility] Last Admin: 05/30/20 01:12 Dose: 166.667 mls/hr Documented by: Lactated Ringer's (Ringers, Lactated) 1,000 mls @ 500 mls/hr IV .BOLUS ONE Stop: 05/29/20 19:37 Last Admin: 05/29/20 18:26 Dose: 500 mls/hr Documented by: Multivitamins/Minerals 10 ml/Thiamine HCl 100 mg/ Folic Acid 1 mg/ Sodium Chloride 1,011.2 mls @ 500 mls/hr IV ONETIME ONE Stop: 05/29/20 22:50 Last Infusion: 05/29/20 23:09 Dose: 999 mls/hr Documented by: Sodium Chloride (Normal Saline (Advbag)) Confirm Administered Dose 250 mls @ as directed .ROUTE .STK-MED ONE Stop: 05/30/20 00:25 Last Admin: 05/30/20 01:08 Dose: Not Given Documented by: Lactated Ringer's (Ringers, Lactated) 1,000 mls @ 999 mls/hr IV .BOLUS ONE Stop: 05/30/20 09:05 Last Admin: 05/30/20 08:15 Dose: 999 mls/hr Documented by: Lorazepam (Ativan) 2 mg IVPUSH ONETIME ONE Stop: 05/28/20 23:44 Last Admin: 05/29/20 00:01 Dose: 2 mg Documented by: Lorazepam (Ativan) 0 mg IVPUSH Q4H PRN; Protocol PRN Reason: Withdrawal Symptoms Last Admin: 05/29/20 08:10 Dose: 2 mg Documented by: Lorazepam (Ativan) Confirm Administered Dose 2 mg .ROUTE .STK-MED ONE Stop: 05/29/20 17:30 Last Admin: 05/29/20 17:43 Dose: 2 mg Documented by: Morphine Sulfate (Morphine) 2 mg IVPUSH Q4H PRN PRN Reason: Pain Last Admin: 05/29/20 11:06 Dose: 2 mg Documented by: Vancomycin HCl (Pharmacy To Dose - Vancomycin) 1 dose .XX ASDIRECTED [facility] Vancomycin HCl (Vancocin) Confirm Administered Dose 1 gm .ROUTE .STCloudwear-MED ONE Stop: 05/30/20 00:24 Last Admin: 05/30/20 01:08 Dose: Not Given Documented by: - Exam General: Alert, Oriented, Cooperative, No Acute Distress Lungs: Clear to Auscultation, Normal Respiratory Effort, Other (tachypnea noted) Cardiovascular: Regular Rate, Regular Rhythm GI/Abdominal Exam: Normal Bowel Sounds, Soft, Tender Extremities: Normal Inspection, Normal Range of Motion, Non-Tender, No Pedal Edema Neurological: No New Focal Deficit Psy/Mental Status: Withdrawal Symptoms Sepsis Event Note - Evaluation Sepsis Screening Result: Severe Sepsis Risk - Focused Exam Vital Signs: Vital Signs Temp Resp BP Pulse Ox 05/30/20 10:00 38 H 153/109 H 92 L 05/30/20 08:00 99.5 F 34 H 134/94 H 94 L 05/30/20 06:00 35 H 144/103 H 93 L 05/30/20 05:00 45 H 120/91 H 94 L 05/30/20 04:00 99.3 F 27 H 135/102 H 95 05/30/20 03:00 24 H 149/104 H 94 L 05/30/20 02:00 25 H 133/93 H 95 05/30/20 01:00 34 H 138/103 H 96 05/30/20 00:00 99.1 F 47 H 121/81 97 Date Exam was Performed: 05/30/20 Time Exam was Performed: 13:05 - Problem List & Annotations (1) Lactic acid acidosis SNOMED Code(s): 84198830 Code(s): E87.2 - ACIDOSIS Status: Acute Current Visit: Yes (2) Sinus tachycardia SNOMED Code(s): 21790366 Code(s): R00.0 - TACHYCARDIA, UNSPECIFIED Status: Acute Current Visit: Yes (3) Hyperbilirubinemia SNOMED Code(s): 10478603 Code(s): E80.6 - OTHER DISORDERS OF BILIRUBIN METABOLISM Status: Acute Current Visit: Yes (4) Alcohol abuse SNOMED Code(s): 85970918 Code(s): F10.10 - ALCOHOL ABUSE, UNCOMPLICATED Status: Acute Current Visit: Yes (5) Alcohol withdrawal SNOMED Code(s): 501558146 Code(s): F10.239 - ALCOHOL DEPENDENCE WITH WITHDRAWAL, UNSPECIFIED Status: Acute Current Visit: Yes (6) Pancreatitis SNOMED Code(s): 11791604 Code(s): K85.90 - ACUTE PANCREATITIS WITHOUT NECROSIS OR INFECTION, UNSP Status: Acute Current Visit: Yes - Problem List Review Problem List Initiated/Reviewed/Updated: Yes - My Orders Last 24 Hours: My Active Orders 05/30/20 08:30 Magnesium Sulfate [Magnesium Sulfate 50%] 4 gm Potassium Phosphates 20 mmole Sodium Chloride 0.9% [Normal Saline] 1,000 ml IV ONETIME 05/30/20 10:14 Glucose [Blood Glucose Check, Bedside] [RC] Q6H Head wo Cont [CT] Urgent - Plan Plan:: 30 y/o F admitted for acute alcoholic pancreatitis 1. Acute alcoholic pancreatitis - Continue NPO - Continue aggressive fluid resuscitation, LR 200 mls/hr - Continue Protonix daily IV - Zosyn and Vancomycin started due to concerns of sepsis and infection, no infection noted, will stop Vancomycin today and likely Zosyn tomorrow. Discussed with Dr Burden. BC negative x 1 day. - Monitor Lactic acid this evening, continues to down trend. Has had over 6 L of fluid. - Lipase downtrending - Repeat CT this morning, shows pancreatitis with severe fatty infiltration of liver - Monitor electrolytes and replace as needed 2. Alcohol withdrawal - Continue CIWAA protocol with Ativan - Librium 50 mg BID - Thiamine and folic acid daily - Had assisted fall last night, bruising noted to cheek. Head CT obtained which was negative. - HIGH FALL RISK due to alcohol withdrawal - Monitor closely 3. Hyperbilirubinemia: -Increased today, will monitor. 4. Hyperglycemia - Monitor BS Q6 hours, need to consider adding insulin to control BS. - A1c 5.1 VTE prophylaxis: Lovenox GI prophylaxis: Protonix Dispo: 2-3 days pending improvement Discussed care at length with mother at bedside with Dr Burden.
--- NOTE | 2020-05-30 12:13 | CT ---
Head CT Technique: Multiple axial sections through the brain were obtained. Intravenous contrast was not utilized. Comparison: No prior intracranial imaging is available. Findings: Ventricles along with basal cisterns and sulci over the convexities are within normal limits for the patient's age. No abnormal parenchymal densities are seen. No evidence of intracranial hemorrhage. No midline shift or mass effect is appreciated. Bone window settings were reviewed. Visualized mastoid sinuses and visualized paranasal sinuses show nothing acute. No acute calvarial finding is seen. Impression: 1. Nothing acute is appreciated on noncontrast head CT exam. Diagnostic code #1 This report was dictated in MDT
--- NOTE | 2020-05-30 12:25 | CT ---
CT abdomen and pelvis Technique: Multiple axial sections were obtained from above the dome of the diaphragm inferiorly through the pubic symphysis. Intravenous contrast was not utilized. Findings: Small bilateral pleural effusions are seen. Atelectasis is seen within both lung bases. Severe fatty infiltration is noted within the liver. Pancreas appears somewhat edematous with haziness around the pancreas suggesting possibility of pancreatitis. Fluid is seen within the paracolic gutters with fluid seen within the pelvis. Fluid does not have the Hounsfield unit measurements of blood. Adrenal gland is not well seen on the left side. Right adrenal gland is normal. Aorta shows no aneurysm. No retroperitoneal adenopathy is seen. No pelvic mass or adenopathy is noted. Bone window settings were reviewed which shows no acute osseous finding. Impression: 1. Severe fatty infiltration within the liver. 2. Possible pancreatitis. Please correlate with laboratory findings. 3. Fluid seen within the paracolic gutters as well as within the pelvis. Fluid does not have Hounsfield unit measurements of blood and may relate to question pancreatitis. 4. Small bilateral pleural effusions are seen with bibasilar atelectasis. 5. Poorly seen left adrenal gland. 6. No other acute finding is seen. Diagnostic code #3 This report was dictated in MDT
[2020-05-30] MEDS: Morphine 2 MG/ML SYRINGE IVPUSH PRN ×2 (13:55→20:17)
[2020-05-30] MEDS: Enoxaparin 40 MG/0.4 ML Syringe SUBCUT SCH (15:40)
[2020-05-31] MEDS: Morphine 2 MG/ML SYRINGE IVPUSH PRN ×4 (00:50→20:32)
[2020-05-31] MEDS: Lactated Ringers 1,000 ML IV SCH ×4 (00:54→23:22)
[2020-05-31] MEDS: Piperacillin/Tazobactam 3.375 GM in Sodium Chloride 0.9% 100 ML IV SCH (03:07)
[2020-05-31 07:16] LABS: BLOOD UREA NITROGEN,BUN 7 mg/dL (7.0-18.0); CARBON DIOXIDE,CO2 25.5 mmol/L (21.0-32.0); CHLORIDE,CL 97 mmol/L (98-107); GLUCOSE RANDOM 229 mg/dL (74-106); POTASSIUM,K 4.1 mmol/L (3.5-5.1); SODIUM,NA 132 mmol/L (136-145)
[2020-05-31] MEDS ORDERED: Potassium Phosphates 30 MMOLE in Sodium Chloride 0.9% 1,000 ML IV ONE (08:07)
[2020-05-31] MEDS ORDERED: Piperacillin/Tazobactam 3.375 GM in Sodium Chloride 0.9% 100 ML IV SCH (09:00)
[2020-05-31] MEDS: chlordiazePOXIDE 25 MG Cap PO SCH ×2 (09:15→20:29)
[2020-05-31] MEDS: Pantoprazole 40 MG in Sodium Chloride 0.9% 10 ML IV SCH (09:25)
[2020-05-31] MEDS: Folic Acid 50 MG/10 ML MDV IV SCH (09:30)
[2020-05-31] MEDS: Thiamine 100 MG in Sodium Chloride 0.9% 100 ML IV SCH (10:47)
--- NOTE | 2020-05-31 11:21 | PN ---
THC Physician - Brief Progress [id number]/14/2020 11:17[facility] HospitalJermaine medina [place] - RAKESHN (JOSE ANTONIO) - MWN PELON PEREZJeffersonDate of Service 05/31/2020 11:17HPI/Events of Note eICU Progress [id number] admitted for EtOH related pancreatitis. History obtained primarily from riya cardenas of EMR.Camera exam: Laying in bed. Vitals monitor reviewed.Labs: reviewedRadiology: reviewedeIC U Impression and Recommendations:Pancreatitis, attributed to EtOH useAlcohol WithdrawalIntravenous fl uids to maintain adequate urine output and euvolemiaInitiation of oral intake as toleratedAlcohol wit hdrawal protocol per institutional policy, including administration of PRN benzodiazepinesContinued t elemetry monitoringThiamine supplementation, 100mg dailyDVT and GI prophylaxis as appropriate.Thank amira green for allowing us to participate in the care of this patient.The above note transcribed with the ass istance of dictation software. Please excuse any errors.Interventions Major-Other: PancreatitisElectr onically Signed by: JENNIFER GODINEZ) on 05/31/2020 11:17
--- NOTE | 2020-05-31 11:55 | PCM.PN ---
- General Info Date of Service: 05/31/20 Admission Dx/Problem (Free Text): Admission Diagnosis/Problem Admission Diagnosis/Problem Pancreatitis Subjective Update: Feeling a little improved today. Tolerating CL diet. Pain is 6-7/10. No dyspnea reported. No further hallucinations. Tremors improved. Gait still unsteady - Review of Systems General: Reports: Fatigue Pulmonary: Denies: Shortness of Breath Cardiovascular: Reports: Chest Pain Gastrointestinal: Reports: Abdominal Pain. Denies: Diarrhea, Nausea, Vomiting Genitourinary: Reports: No Symptoms. Denies: Dysuria, Frequency Musculoskeletal: Reports: No Symptoms Skin: Reports: No Symptoms Neurological: Reports: Tremors (much improved), Difficulty Walking Psychiatric: Reports: No Symptoms - Patient Data Vitals - Most Recent: Last Vital Signs Temp 98.8 F 05/31/20 03:00 Pulse 120 H 05/29/20 19:00 Resp 24 H 05/31/20 11:00 BP 143/109 H 05/31/20 11:00 Pulse Ox 95 05/31/20 11:00 Weight - Most Recent: 80.921 kg I&O - Last 24 Hours: Intake & Output 05/30/20 05/31/20 05/31/20 22:59 06:59 14:59 Intake Total 4970 3189 Output Total 1840 3150 Balance 3130 39 Lab Results Last 24 Hours: Laboratory Results - last 24 hr 05/30/20 05/30/20 05/30/20 Range/Units 16:38 19:06 22:10 WBC (4.0-11.0) K/uL RBC (4.30-5.90) M/uL Hgb (12.0-16.0) g/dL Hct (36.0-46.0) % MCV (80.0-98.0) fL MCH (27.0-32.0) pg MCHC (31.0-37.0) g/dL RDW Std Deviation (28.0-62.0) fl RDW Coeff of Vanessa (11.0-15.0) % Plt Count (150-400) K/uL MPV (7.40-12.00) fL Neut % (Auto) (48.0-80.0) % Lymph % (Auto) (16.0-40.0) % Alpine % (Auto) (0.0-15.0) % Eos % (Auto) (0.0-7.0) % Baso % (Auto) (0.0-1.5) % Neut # (Auto) (1.4-5.7) K/uL Lymph # (Auto) (0.6-2.4) K/uL Alpine # (Auto) (0.0-0.8) K/uL Eos # (Auto) (0.0-0.7) K/uL Baso # (Auto) (0.0-0.1) K/uL Nucleated RBC % /100WBC Nucleated RBCs # K/uL Lactate 1.9 (0.20-2.00) mmol/L Sodium (136-145) mmol/L Potassium (3.5-5.1) mmol/L Chloride (98-107) mmol/L Carbon Dioxide (21.0-32.0) mmol/L BUN (7.0-18.0) mg/dL Creatinine (0.6-1.0) mg/dL Est Cr Clr Drug Dosing mL/min Estimated GFR (MDRD) ml/min Glucose (74-106) mg/dL POC Glucose 223 H 241 H (60-110) mg/dL Calcium (8.5-10.1) mg/dL Phosphorus (2.6-4.7) mg/dL Magnesium (1.8-2.4) mg/dL Total Bilirubin (0.2-1.0) mg/dL AST (15-37) IU/L ALT (14-63) IU/L Alkaline Phosphatase (46-116) U/L Total Protein (6.4-8.2) g/dL Albumin (3.4-5.0) g/dL Globulin (2.6-4.0) g/dL Albumin/Globulin Ratio (0.9-1.6) Lipase (73-393) U/L 05/31/20 05/31/20 05/31/20 Range/Units 03:44 06:24 06:24 WBC 9.53 (4.0-11.0) K/uL RBC 3.51 L (4.30-5.90) M/uL Hgb 11.6 L (12.0-16.0) g/dL Hct 35.1 L (36.0-46.0) % MCV 100.0 H (80.0-98.0) fL MCH 33.0 H (27.0-32.0) pg MCHC 33.0 (31.0-37.0) g/dL RDW Std Deviation 49.1 (28.0-62.0) fl RDW Coeff of Vanessa 14 (11.0-15.0) % Plt Count 85 L (150-400) K/uL MPV 10.90 (7.40-12.00) fL Neut % (Auto) 67.7 (48.0-80.0) % Lymph % (Auto) 15.3 L (16.0-40.0) % Alpine % (Auto) 16.6 H (0.0-15.0) % Eos % (Auto) 0.3 (0.0-7.0) % Baso % (Auto) 0.1 (0.0-1.5) % Neut # (Auto) 6.5 H (1.4-5.7) K/uL Lymph # (Auto) 1.5 (0.6-2.4) K/uL Alpine # (Auto) 1.6 H (0.0-0.8) K/uL Eos # (Auto) 0.0 (0.0-0.7) K/uL Baso # (Auto) 0.0 (0.0-0.1) K/uL Nucleated RBC % 0.0 /100WBC Nucleated RBCs # 0 K/uL Lactate (0.20-2.00) mmol/L Sodium 132 L (136-145) mmol/L Potassium 4.1 (3.5-5.1) mmol/L Chloride 97 L (98-107) mmol/L Carbon Dioxide 25.5 (21.0-32.0) mmol/L BUN 7 (7.0-18.0) mg/dL Creatinine 0.8 (0.6-1.0) mg/dL Est Cr Clr Drug Dosing 94.21 mL/min Estimated GFR (MDRD) > 60.0 ml/min Glucose 229 H (74-106) mg/dL POC Glucose 213 H (60-110) mg/dL Calcium 7.9 L (8.5-10.1) mg/dL Phosphorus 1.7 L (2.6-4.7) mg/dL Magnesium 2.2 (1.8-2.4) mg/dL Total Bilirubin 9.4 H (0.2-1.0) mg/dL AST 108 H (15-37) IU/L ALT 59 (14-63) IU/L Alkaline Phosphatase 62 (46-116) U/L Total Protein 5.1 L (6.4-8.2) g/dL Albumin 2.4 L (3.4-5.0) g/dL Globulin 2.7 (2.6-4.0) g/dL Albumin/Globulin Ratio 0.9 (0.9-1.6) Lipase (73-393) U/L 05/31/20 05/31/20 Range/Units 06:24 11:41 WBC (4.0-11.0) K/uL RBC (4.30-5.90) M/uL Hgb (12.0-16.0) g/dL Hct (36.0-46.0) % MCV (80.0-98.0) fL MCH (27.0-32.0) pg MCHC (31.0-37.0) g/dL RDW Std Deviation (28.0-62.0) fl RDW Coeff of Vanessa (11.0-15.0) % Plt Count (150-400) K/uL MPV (7.40-12.00) fL Neut % (Auto) (48.0-80.0) % Lymph % (Auto) (16.0-40.0) % Alpine % (Auto) (0.0-15.0) % Eos % (Auto) (0.0-7.0) % Baso % (Auto) (0.0-1.5) % Neut # (Auto) (1.4-5.7) K/uL Lymph # (Auto) (0.6-2.4) K/uL Alpine # (Auto) (0.0-0.8) K/uL Eos # (Auto) (0.0-0.7) K/uL Baso # (Auto) (0.0-0.1) K/uL Nucleated RBC % /100WBC Nucleated RBCs # K/uL Lactate (0.20-2.00) mmol/L Sodium (136-145) mmol/L Potassium (3.5-5.1) mmol/L Chloride (98-107) mmol/L Carbon Dioxide (21.0-32.0) mmol/L BUN (7.0-18.0) mg/dL Creatinine (0.6-1.0) mg/dL Est Cr Clr Drug Dosing mL/min Estimated GFR (MDRD) ml/min Glucose (74-106) mg/dL POC Glucose 213 H (60-110) mg/dL Calcium (8.5-10.1) mg/dL Phosphorus (2.6-4.7) mg/dL Magnesium (1.8-2.4) mg/dL Total Bilirubin (0.2-1.0) mg/dL AST (15-37) IU/L ALT (14-63) IU/L Alkaline Phosphatase (46-116) U/L Total Protein (6.4-8.2) g/dL Albumin (3.4-5.0) g/dL Globulin (2.6-4.0) g/dL Albumin/Globulin Ratio (0.9-1.6) Lipase 673 H (73-393) U/L [place] Results Last 24 Hours: Microbiology 05/29/20 13:13 Aerobic Blood Culture - Preliminary Blood - Venous - Lab Draw NO GROWTH AFTER 1 DAY Anaerobic Blood Culture - Preliminary NO GROWTH AFTER 1 DAY 05/29/20 12:46 Aerobic Blood Culture - Preliminary Blood - Venous NO GROWTH AFTER 1 DAY Anaerobic Blood Culture - Preliminary NO GROWTH AFTER 1 DAY Med Orders - Current: Current Medications Chlordiazepoxide HCl (Librium) 50 mg PO BID [facility] Last Admin: 05/31/20 09:15 Dose: 50 mg Documented by: Enoxaparin Sodium (Lovenox) 40 mg SUBCUT Q24H [facility] Last Admin: 05/30/20 15:40 Dose: Not Given Documented by: Folic Acid (Folic Acid) 1 mg IV DAILY [facility] Last Admin: 05/31/20 09:30 Dose: 1 mg Documented by: Pantoprazole Sodium 40 mg/ (Sodium Chloride) 10 mls @ 300 mls/hr IV DAILY [facility] Last Admin: 05/31/20 09:25 Dose: 300 mls/hr Documented by: Lactated Ringer's (Ringers, Lactated) 1,000 mls @ 200 mls/hr IV ASDIRECTED [facility] Last Admin: 05/31/20 06:17 Dose: 200 mls/hr Documented by: Thiamine HCl 100 mg/ Sodium (Chloride) 101 mls @ 202 mls/hr IV DAILY [facility] Last Admin: 05/31/20 10:47 Dose: 202 mls/hr Documented by: Piperacillin Sod/Tazobactam (Sod 3.375 gm/ Sodium Chloride) 100 mls @ 200 mls/hr IV Q6H [facility] Last Admin: 05/31/20 09:55 Dose: 200 mls/hr Documented by: Potassium Phosphate 30 mmole/ (Sodium Chloride) 1,010 mls @ 125 mls/hr IV ONETIME ONE Stop: 05/31/20 16:11 Last Admin: 05/31/20 09:08 Dose: 125 mls/hr Documented by: Lorazepam (Ativan) 0 mg IVPUSH Q1H PRN; Protocol PRN Reason: Withdrawal Symptoms Last Admin: 05/29/20 23:29 Dose: 2 mg Documented by: Morphine Sulfate (Morphine) 1 mg IVPUSH Q4H PRN PRN Reason: Pain Last Admin: 05/31/20 07:03 Dose: 1 mg Documented by: Ondansetron HCl (Zofran) 4 mg IVPUSH Q4H PRN PRN Reason: Nausea/Vomitting Last Admin: 05/29/20 07:10 Dose: 4 mg Documented by: Discontinued Medications Chlordiazepoxide HCl (Librium) 25 mg PO BID [facility] Last Admin: 05/29/20 20:07 Dose: 25 mg Documented by: Chlordiazepoxide HCl (Librium) 25 mg PO ONETIME ONE Stop: 05/29/20 18:20 Last Admin: 05/29/20 18:38 Dose: 25 mg Documented by: Hydromorphone HCl (Dilaudid) 1 mg IVPUSH ONETIME ONE Stop: 05/28/20 22:00 Last Admin: 05/28/20 22:20 Dose: 1 mg Documented by: Hydromorphone HCl (Dilaudid) 1 mg IVPUSH ONETIME ONE Stop: 05/28/20 23:44 Last Admin: 05/29/20 00:04 Dose: 1 mg Documented by: Lactated Ringer's (Ringers, Lactated) 1,000 mls @ 999 mls/hr IV .BOLUS ONE Stop: 05/28/20 22:59 Last Admin: 05/28/20 22:19 Dose: 999 mls/hr Documented by: Lactated Ringer's (Ringers, Lactated) 1,000 mls @ 125 mls/hr IV ASDIRECTED [facility] Last Admin: 05/29/20 00:00 Dose: 125 mls/hr Documented by: Lactated Ringer's (Ringers, Lactated) 1,000 mls @ 999 mls/hr IV ONETIME ONE Stop: 05/29/20 10:26 Last Admin: 05/29/20 09:33 Dose: 999 mls/hr Documented by: Piperacillin Sod/Tazobactam (Sod 3.375 gm/ Sodium Chloride) 100 mls @ 200 mls/hr IV Q8H [facility] Last Admin: 05/31/20 03:07 Dose: 200 mls/hr Documented by: Magnesium Sulfate 2 gm/ Premix 50 mls @ 50 mls/hr IV ONETIME ONE Stop: 05/29/20 11:17 Last Admin: 05/29/20 11:15 Dose: 50 mls/hr Documented by: Multivitamins/Minerals 10 ml/Thiamine HCl 100 mg/ Folic Acid 1 mg/ Sodium Chloride 1,011.2 mls @ 200 mls/hr IV ONETIME ONE Stop: 05/29/20 15:21 Last Admin: 05/29/20 13:18 Dose: Not Given Documented by: Multivitamins/Minerals 10 ml/Thiamine HCl 100 mg/ Folic Acid 1 mg/ Sodium Chloride 1,011.2 mls @ 200 mls/hr IV ONETIME ONE Stop: 05/29/20 17:18 Last Admin: 05/29/20 13:13 Dose: 200 mls/hr Documented by: Lactated Ringer's (Ringers, Lactated) 1,000 mls @ 999 mls/hr IV ONETIME ONE Stop: 05/29/20 13:26 Last Admin: 05/29/20 13:10 Dose: 999 mls/hr Documented by: Vancomycin HCl 1.5 gm/ Premix 300 mls @ 200 mls/hr IV ONETIME ONE Stop: 05/29/20 14:34 Last Admin: 05/29/20 14:30 Dose: 200 mls/hr Documented by: Lactated Ringer's (Ringers, Lactated) 1,000 mls @ 999 mls/hr IV .BOLUS ONE Stop: 05/29/20 14:08 Last Admin: 05/29/20 14:13 Dose: 999 mls/hr Documented by: Vancomycin HCl 1 gm/ Sodium (Chloride) 250 mls @ 166.667 mls/hr IV Q12H [facility] Last Admin: 05/30/20 01:12 Dose: 166.667 mls/hr Documented by: Lactated Ringer's (Ringers, Lactated) 1,000 mls @ 500 mls/hr IV .BOLUS ONE Stop: 05/29/20 19:37 Last Admin: 05/29/20 18:26 Dose: 500 mls/hr Documented by: Multivitamins/Minerals 10 ml/Thiamine HCl 100 mg/ Folic Acid 1 mg/ Sodium Chloride 1,011.2 mls @ 500 mls/hr IV ONETIME ONE Stop: 05/29/20 22:50 Last Infusion: 05/29/20 23:09 Dose: 999 mls/hr Documented by: Sodium Chloride (Normal Saline (Advbag)) Confirm Administered Dose 250 mls @ as directed .ROUTE .STK-MED ONE Stop: 05/30/20 00:25 Last Admin: 05/30/20 01:08 Dose: Not Given Documented by: Lactated Ringer's (Ringers, Lactated) 1,000 mls @ 999 mls/hr IV .BOLUS ONE Stop: 05/30/20 09:05 Last Admin: 05/30/20 08:15 Dose: 999 mls/hr Documented by: Magnesium Sulfate 4 gm/Potassium Phosphate 20 mmole/Sodium Chloride 1,014.6667 mls @ 150 mls/hr IV ONETIME ONE Stop: 05/30/20 15:15 Last Admin: 05/30/20 08:44 Dose: 150 mls/hr Documented by: Lorazepam (Ativan) 2 mg IVPUSH ONETIME ONE Stop: 05/28/20 23:44 Last Admin: 05/29/20 00:01 Dose: 2 mg Documented by: Lorazepam (Ativan) 0 mg IVPUSH Q4H PRN; Protocol PRN Reason: Withdrawal Symptoms Last Admin: 05/29/20 08:10 Dose: 2 mg Documented by: Lorazepam (Ativan) Confirm Administered Dose 2 mg .ROUTE .STK-MED ONE Stop: 05/29/20 17:30 Last Admin: 05/29/20 17:43 Dose: 2 mg Documented by: Morphine Sulfate (Morphine) 2 mg IVPUSH Q4H PRN PRN Reason: Pain Last Admin: 05/29/20 11:06 Dose: 2 mg Documented by: Vancomycin HCl (Pharmacy To Dose - Vancomycin) 1 dose .XX ASDIRECTED [facility] Vancomycin HCl (Vancocin) Confirm Administered Dose 1 gm .ROUTE .STK-MED ONE Stop: 05/30/20 00:24 Last Admin: 05/30/20 01:08 Dose: Not Given Documented by: - Exam General: Alert, Oriented, Other (more alert today, asking if she will be ok. ) Lungs: Decreased Breath Sounds Cardiovascular: Tachycardia GI/Abdominal Exam: Normal Bowel Sounds, Soft, Distended, Tender, Hepatomegaly Extremities: Normal Inspection, Normal Range of Motion, Non-Tender, No Pedal Edema Neurological: No New Focal Deficit Psy/Mental Status: Alert, Normal Affect, Normal Mood Sepsis Event Note - Evaluation Sepsis Screening Result: Severe Sepsis Risk - Focused Exam Vital Signs: Vital Signs Temp Resp BP Pulse Ox 05/31/20 11:00 24 H 143/109 H 95 05/31/20 10:00 27 H 156/112 H 94 L 05/31/20 09:00 29 H 134/101 H 95 05/31/20 08:00 34 H 142/103 H 96 05/31/20 07:00 26 H 144/98 H 95 05/31/20 06:00 27 H 142/103 H 95 05/31/20 05:00 35 H 131/95 H 96 05/31/20 04:00 33 H 128/89 97 05/31/20 03:00 98.8 F 22 H 143/109 H 96 05/31/20 02:00 37 H 145/107 H 97 05/31/20 01:00 32 H 156/105 H 93 L 05/31/20 00:00 99.1 F 38 H 128/93 H 93 L Date Exam was Performed: 05/31/20 Time Exam was Performed: 12:38 - Problem List & Annotations (1) Lactic acid acidosis SNOMED Code(s): 35370262 Code(s): E87.2 - ACIDOSIS Status: Acute Current Visit: Yes (2) Sinus tachycardia SNOMED Code(s): 83757315 Code(s): R00.0 - TACHYCARDIA, UNSPECIFIED Status: Acute Current Visit: Yes (3) Hyperbilirubinemia SNOMED Code(s): 80964458 Code(s): E80.6 - OTHER DISORDERS OF BILIRUBIN METABOLISM Status: Acute Current Visit: Yes (4) Alcohol abuse SNOMED Code(s): 71217842 Code(s): F10.10 - ALCOHOL ABUSE, UNCOMPLICATED Status: Acute Current Visit: Yes (5) Alcohol withdrawal SNOMED Code(s): 584387893 Code(s): F10.239 - ALCOHOL DEPENDENCE WITH WITHDRAWAL, UNSPECIFIED Status: Acute Current Visit: Yes (6) Pancreatitis SNOMED Code(s): 38069362 Code(s): K85.90 - ACUTE PANCREATITIS WITHOUT NECROSIS OR INFECTION, UNSP Status: Acute Current Visit: Yes (7) Alcoholic hepatitis SNOMED Code(s): 681273066 Code(s): K70.10 - ALCOHOLIC HEPATITIS WITHOUT ASCITES Status: Acute Current Visit: Yes Qualifiers: Ascites presence: without ascites Qualified Code(s): K70.10 - Alcoholic hepatitis without ascites - Problem List Review Problem List Initiated/Reviewed/Updated: Yes - My Orders Last 24 Hours: My Active Orders 05/31/20 08:07 Potassium Phosphates 30 mmole Sodium Chloride 0.9% [Normal Saline] 1,000 ml IV ONETIME 05/31/20 10:56 Abdomen wo Cont [MR] Urgent 05/31/20 11:32 HEPATITIS PANEL (4) [REF] Routine INR,PT,PROTHROMBIN TIME [COAG] Routine 06/01/20 05:11 CBC WITH AUTO DIFF [HEME] AM COMPREHENSIVE METABOLIC PN,CMP [CHEM] AM MAGNESIUM [CHEM] AM PHOSPHORUS [CHEM] AM 06/02/20 05:11 CBC WITH AUTO DIFF [HEME] AM COMPREHENSIVE METABOLIC PN,CMP [CHEM] AM MAGNESIUM [CHEM] AM PHOSPHORUS [CHEM] AM - Plan Plan:: 30 y/o F admitted for acute alcoholic pancreatitis 1. Acute alcoholic pancreatitis - CL going well. - Continue aggressive fluid resuscitation, LR 200 mls/hr - Continue Protonix daily IV - Stop antibiotics, no infection noted. - Lactic acid cleared. - Lipase downtrending - Monitor electrolytes and replace as needed - Will obtained MRCP to rule out stone further due to drastic decrease in Lipase 2. Alcohol withdrawal - Continue CIWAA protocol with Ativan - Librium 50 mg BID, likely start to decrease in am. - Thiamine and folic acid daily - HIGH FALL RISK due to alcohol withdrawal - Monitor closely 3. Alcoholic hepatitis: - Bilirubin continues to elevated, expect to reach peak then plateau - Hepatitis panel pending - INR 1.1 - Hepatomegaly noted with severe fatty infiltration noted on imaging. -Counseled Raul and father at bedside the severity of liver injury and the absolute necessity to stop drinking otherwise liver failure would be expected if alcohol use continues. 4. Hyperglycemia - Monitor BS Q6 hours, need to consider adding insulin to control BS. - A1c 5.1 5. Electrolyte abnormalities - Replace phosphorus today IV, start PO tonight after MRI. VTE prophylaxis: Lovenox GI prophylaxis: Protonix Dispo: 2-3 days pending improvement
--- NOTE | 2020-05-31 14:36 | MR ---
MRI abdomen Various noncontrast sequences were obtained axial and coronal planes. MRCP study also performed. Findings: Liver is enlarged and shows diffuse fatty infiltration. Common bile duct measures at the upper limits of normal at 6.5 mm. No discrete filling defects are seen to indicate retained stone. Ascites is seen within the abdomen. Diffuse fluid is seen around the pancreas as well as pancreas being edematous. No localized fluid collections of pseudocyst are seen at this time. No localized collections indicate a discrete abscess is seen. Bilateral pleural effusions are noted with bibasilar atelectasis. Kidneys show no abnormality. Impression: 1. Enlarged liver with diffuse fatty infiltration. 2. Edematous change within the pancreas with fluid around the pancreas as well as fluid within other portions of the abdomen. These findings are likely due to pancreatitis. 3. No evidence of stone within the CBD. 4. No findings of pseudocyst or abscess are seen at this time. 5. Bibasilar atelectasis and bilateral pleural effusions. Diagnostic code #3 Study was dictated in [facility]
[2020-05-31] MEDS ORDERED: Lactated Ringers 1,000 ML IV SCH (15:15)
[2020-05-31] MEDS: Enoxaparin 40 MG/0.4 ML Syringe SUBCUT SCH (15:18)
--- NOTE | 2020-05-31 15:28 | PCM.SURGPN ---
- General Info Date of Service: 05/31/20 Pain Score: 5 - Review of Systems General: Reports: No Symptoms (npo, await mRCP; otherwise tolerated clear; no BM X 3 days) - Patient Data Vitals - Most Recent: Last Vital Signs Temp 99.1 F 05/31/20 12:00 Pulse 120 H 05/29/20 19:00 Resp 27 H 05/31/20 15:00 BP 121/76 05/31/20 15:00 Pulse Ox 94 L 05/31/20 15:00 Weight - Most Recent: 178 lb 6.4 oz I&O - Last 24 Hours: Intake & Output 05/31/20 05/31/20 05/31/20 06:59 14:59 22:59 Intake Total 3189 Output Total 3150 Balance 39 Lab Results Last 24 Hrs: Laboratory Results - last 24 hr 05/30/20 05/30/20 05/30/20 Range/Units 16:38 19:06 22:10 WBC (4.0-11.0) K/uL RBC (4.30-5.90) M/uL Hgb (12.0-16.0) g/dL Hct (36.0-46.0) % MCV (80.0-98.0) fL MCH (27.0-32.0) pg MCHC (31.0-37.0) g/dL RDW Std Deviation (28.0-62.0) fl RDW Coeff of Vanessa (11.0-15.0) % Plt Count (150-400) K/uL MPV (7.40-12.00) fL Neut % (Auto) (48.0-80.0) % Lymph % (Auto) (16.0-40.0) % [place] % (Auto) (0.0-15.0) % Eos % (Auto) (0.0-7.0) % Baso % (Auto) (0.0-1.5) % Neut # (Auto) (1.4-5.7) K/uL Lymph # (Auto) (0.6-2.4) K/uL [place] # (Auto) (0.0-0.8) K/uL Eos # (Auto) (0.0-0.7) K/uL Baso # (Auto) (0.0-0.1) K/uL Nucleated RBC % /100WBC Nucleated RBCs # K/uL INR Lactate 1.9 (0.20-2.00) mmol/L Sodium (136-145) mmol/L Potassium (3.5-5.1) mmol/L Chloride (98-107) mmol/L Carbon Dioxide (21.0-32.0) mmol/L BUN (7.0-18.0) mg/dL Creatinine (0.6-1.0) mg/dL Est Cr Clr Drug Dosing mL/min Estimated GFR (MDRD) ml/min Glucose (74-106) mg/dL POC Glucose 223 H 241 H (60-110) mg/dL Calcium (8.5-10.1) mg/dL Phosphorus (2.6-4.7) mg/dL Magnesium (1.8-2.4) mg/dL Total Bilirubin (0.2-1.0) mg/dL AST (15-37) IU/L ALT (14-63) IU/L Alkaline Phosphatase (46-116) U/L Total Protein (6.4-8.2) g/dL Albumin (3.4-5.0) g/dL Globulin (2.6-4.0) g/dL Albumin/Globulin Ratio (0.9-1.6) Lipase (73-393) U/L 05/31/20 05/31/20 05/31/20 Range/Units 03:44 06:24 06:24 WBC 9.53 (4.0-11.0) K/uL RBC 3.51 L (4.30-5.90) M/uL Hgb 11.6 L (12.0-16.0) g/dL Hct 35.1 L (36.0-46.0) % MCV 100.0 H (80.0-98.0) fL MCH 33.0 H (27.0-32.0) pg MCHC 33.0 (31.0-37.0) g/dL RDW Std Deviation 49.1 (28.0-62.0) fl RDW Coeff of Vanessa 14 (11.0-15.0) % Plt Count 85 L (150-400) K/uL MPV 10.90 (7.40-12.00) fL Neut % (Auto) 67.7 (48.0-80.0) % Lymph % (Auto) 15.3 L (16.0-40.0) % [place] % (Auto) 16.6 H (0.0-15.0) % Eos % (Auto) 0.3 (0.0-7.0) % Baso % (Auto) 0.1 (0.0-1.5) % Neut # (Auto) 6.5 H (1.4-5.7) K/uL Lymph # (Auto) 1.5 (0.6-2.4) K/uL [place] # (Auto) 1.6 H (0.0-0.8) K/uL Eos # (Auto) 0.0 (0.0-0.7) K/uL Baso # (Auto) 0.0 (0.0-0.1) K/uL Nucleated RBC % 0.0 /100WBC Nucleated RBCs # 0 K/uL INR Lactate (0.20-2.00) mmol/L Sodium 132 L (136-145) mmol/L Potassium 4.1 (3.5-5.1) mmol/L Chloride 97 L (98-107) mmol/L Carbon Dioxide 25.5 (21.0-32.0) mmol/L BUN 7 (7.0-18.0) mg/dL Creatinine 0.8 (0.6-1.0) mg/dL Est Cr Clr Drug Dosing 94.21 mL/min Estimated GFR (MDRD) > 60.0 ml/min Glucose 229 H (74-106) mg/dL POC Glucose 213 H (60-110) mg/dL Calcium 7.9 L (8.5-10.1) mg/dL Phosphorus 1.7 L (2.6-4.7) mg/dL Magnesium 2.2 (1.8-2.4) mg/dL Total Bilirubin 9.4 H (0.2-1.0) mg/dL AST 108 H (15-37) IU/L ALT 59 (14-63) IU/L Alkaline Phosphatase 62 (46-116) U/L Total Protein 5.1 L (6.4-8.2) g/dL Albumin 2.4 L (3.4-5.0) g/dL Globulin 2.7 (2.6-4.0) g/dL Albumin/Globulin Ratio 0.9 (0.9-1.6) Lipase (73-393) U/L 05/31/20 05/31/20 05/31/20 Range/Units 06:24 11:32 11:41 WBC (4.0-11.0) K/uL RBC (4.30-5.90) M/uL Hgb (12.0-16.0) g/dL Hct (36.0-46.0) % MCV (80.0-98.0) fL MCH (27.0-32.0) pg MCHC (31.0-37.0) g/dL RDW Std Deviation (28.0-62.0) fl RDW Coeff of Vanessa (11.0-15.0) % Plt Count (150-400) K/uL MPV (7.40-12.00) fL Neut % (Auto) (48.0-80.0) % Lymph % (Auto) (16.0-40.0) % [place] % (Auto) (0.0-15.0) % Eos % (Auto) (0.0-7.0) % Baso % (Auto) (0.0-1.5) % Neut # (Auto) (1.4-5.7) K/uL Lymph # (Auto) (0.6-2.4) K/uL [place] # (Auto) (0.0-0.8) K/uL Eos # (Auto) (0.0-0.7) K/uL Baso # (Auto) (0.0-0.1) K/uL Nucleated RBC % /100WBC Nucleated RBCs # K/uL INR 1.10 Lactate (0.20-2.00) mmol/L Sodium (136-145) mmol/L Potassium (3.5-5.1) mmol/L Chloride (98-107) mmol/L Carbon Dioxide (21.0-32.0) mmol/L BUN (7.0-18.0) mg/dL Creatinine (0.6-1.0) mg/dL Est Cr Clr Drug Dosing mL/min Estimated GFR (MDRD) ml/min Glucose (74-106) mg/dL POC Glucose 213 H (60-110) mg/dL Calcium (8.5-10.1) mg/dL Phosphorus (2.6-4.7) mg/dL Magnesium (1.8-2.4) mg/dL Total Bilirubin (0.2-1.0) mg/dL AST (15-37) IU/L ALT (14-63) IU/L Alkaline Phosphatase (46-116) U/L Total Protein (6.4-8.2) g/dL Albumin (3.4-5.0) g/dL Globulin (2.6-4.0) g/dL Albumin/Globulin Ratio (0.9-1.6) Lipase 673 H (73-393) U/L [place] Results Last 24 Hrs: Microbiology 05/29/20 13:13 Aerobic Blood Culture - Preliminary Blood - Venous - Lab Draw NO GROWTH AFTER 2 DAYS Anaerobic Blood Culture - Preliminary NO GROWTH AFTER 2 DAYS 05/29/20 12:46 Aerobic Blood Culture - Preliminary Blood - Venous NO GROWTH AFTER 2 DAYS Anaerobic Blood Culture - Preliminary NO GROWTH AFTER 2 DAYS Med Orders - Current: Current Medications Chlordiazepoxide HCl (Librium) 50 mg PO BID [facility] Last Admin: 05/31/20 09:15 Dose: 50 mg Documented by: Enoxaparin Sodium (Lovenox) 40 mg SUBCUT Q24H [facility] Last Admin: 05/30/20 15:40 Dose: Not Given Documented by: Folic Acid (Folic Acid) 1 mg IV DAILY [facility] Last Admin: 05/31/20 09:30 Dose: 1 mg Documented by: Pantoprazole Sodium 40 mg/ (Sodium Chloride) 10 mls @ 300 mls/hr IV DAILY [facility] Last Admin: 05/31/20 09:25 Dose: 300 mls/hr Documented by: Thiamine HCl 100 mg/ Sodium (Chloride) 101 mls @ 202 mls/hr IV DAILY [facility] Last Admin: 05/31/20 10:47 Dose: 202 mls/hr Documented by: Potassium Phosphate 30 mmole/ (Sodium Chloride) 1,010 mls @ 125 mls/hr IV ONETIME ONE Stop: 05/31/20 16:11 Last Infusion: 05/31/20 14:15 Dose: 125 mls/hr Documented by: Lactated Ringer's (Ringers, Lactated) 1,000 mls @ 125 mls/hr IV Q8H [facility] Last Admin: 05/31/20 15:11 Dose: 125 mls/hr Documented by: Lorazepam (Ativan) 0 mg IVPUSH Q1H PRN; Protocol PRN Reason: Withdrawal Symptoms Last Admin: 05/29/20 23:29 Dose: 2 mg Documented by: Morphine Sulfate (Morphine) 1 mg IVPUSH Q4H PRN PRN Reason: Pain Last Admin: 05/31/20 07:03 Dose: 1 mg Documented by: Ondansetron HCl (Zofran) 4 mg IVPUSH Q4H PRN PRN Reason: Nausea/Vomitting Last Admin: 05/29/20 07:10 Dose: 4 mg Documented by: Discontinued Medications Chlordiazepoxide HCl (Librium) 25 mg PO BID [facility] Last Admin: 05/29/20 20:07 Dose: 25 mg Documented by: Chlordiazepoxide HCl (Librium) 25 mg PO ONETIME ONE Stop: 05/29/20 18:20 Last Admin: 05/29/20 18:38 Dose: 25 mg Documented by: Hydromorphone HCl (Dilaudid) 1 mg IVPUSH ONETIME ONE Stop: 05/28/20 22:00 Last Admin: 05/28/20 22:20 Dose: 1 mg Documented by: Hydromorphone HCl (Dilaudid) 1 mg IVPUSH ONETIME ONE Stop: 05/28/20 23:44 Last Admin: 05/29/20 00:04 Dose: 1 mg Documented by: Lactated Ringer's (Ringers, Lactated) 1,000 mls @ 999 mls/hr IV .BOLUS ONE Stop: 05/28/20 22:59 Last Admin: 05/28/20 22:19 Dose: 999 mls/hr Documented by: Lactated Ringer's (Ringers, Lactated) 1,000 mls @ 125 mls/hr IV ASDIRECTED [facility] Last Admin: 05/29/20 00:00 Dose: 125 mls/hr Documented by: Lactated Ringer's (Ringers, Lactated) 1,000 mls @ 200 mls/hr IV ASDIRECTED [facility] Last Infusion: 05/31/20 15:10 Dose: 125 mls/hr Documented by: Lactated Ringer's (Ringers, Lactated) 1,000 mls @ 999 mls/hr IV ONETIME ONE Stop: 05/29/20 10:26 Last Admin: 05/29/20 09:33 Dose: 999 mls/hr Documented by: Piperacillin Sod/Tazobactam (Sod 3.375 gm/ Sodium Chloride) 100 mls @ 200 mls/hr IV Q8H [facility] Last Admin: 05/31/20 03:07 Dose: 200 mls/hr Documented by: Magnesium Sulfate 2 gm/ Premix 50 mls @ 50 mls/hr IV ONETIME ONE Stop: 05/29/20 11:17 Last Admin: 05/29/20 11:15 Dose: 50 mls/hr Documented by: Multivitamins/Minerals 10 ml/Thiamine HCl 100 mg/ Folic Acid 1 mg/ Sodium Chloride 1,011.2 mls @ 200 mls/hr IV ONETIME ONE Stop: 05/29/20 15:21 Last Admin: 05/29/20 13:18 Dose: Not Given Documented by: Multivitamins/Minerals 10 ml/Thiamine HCl 100 mg/ Folic Acid 1 mg/ Sodium Chloride 1,011.2 mls @ 200 mls/hr IV ONETIME ONE Stop: 05/29/20 17:18 Last Admin: 05/29/20 13:13 Dose: 200 mls/hr Documented by: Lactated Ringer's (Ringers, Lactated) 1,000 mls @ 999 mls/hr IV ONETIME ONE Stop: 05/29/20 13:26 Last Admin: 05/29/20 13:10 Dose: 999 mls/hr Documented by: Vancomycin HCl 1.5 gm/ Premix 300 mls @ 200 mls/hr IV ONETIME ONE Stop: 05/29/20 14:34 Last Admin: 05/29/20 14:30 Dose: 200 mls/hr Documented by: Lactated Ringer's (Ringers, Lactated) 1,000 mls @ 999 mls/hr IV .BOLUS ONE Stop: 05/29/20 14:08 Last Admin: 05/29/20 14:13 Dose: 999 mls/hr Documented by: Vancomycin HCl 1 gm/ Sodium (Chloride) 250 mls @ 166.667 mls/hr IV Q12H [facility] Last Admin: 05/30/20 01:12 Dose: 166.667 mls/hr Documented by: Lactated Ringer's (Ringers, Lactated) 1,000 mls @ 500 mls/hr IV .BOLUS ONE Stop: 05/29/20 19:37 Last Admin: 05/29/20 18:26 Dose: 500 mls/hr Documented by: Multivitamins/Minerals 10 ml/Thiamine HCl 100 mg/ Folic Acid 1 mg/ Sodium Chloride 1,011.2 mls @ 500 mls/hr IV ONETIME ONE Stop: 05/29/20 22:50 Last Infusion: 05/29/20 23:09 Dose: 999 mls/hr Documented by: Sodium Chloride (Normal Saline (Advbag)) Confirm Administered Dose 250 mls @ as directed .ROUTE .STK-MED ONE Stop: 05/30/20 00:25 Last Admin: 05/30/20 01:08 Dose: Not Given Documented by: Lactated Ringer's (Ringers, Lactated) 1,000 mls @ 999 mls/hr IV .BOLUS ONE Stop: 05/30/20 09:05 Last Admin: 05/30/20 08:15 Dose: 999 mls/hr Documented by: Magnesium Sulfate 4 gm/Potassium Phosphate 20 mmole/Sodium Chloride 1,014.6667 mls @ 150 mls/hr IV ONETIME ONE Stop: 05/30/20 15:15 Last Admin: 05/30/20 08:44 Dose: 150 mls/hr Documented by: Piperacillin Sod/Tazobactam (Sod 3.375 gm/ Sodium Chloride) 100 mls @ 200 mls/hr IV Q6H [facility] Last Admin: 05/31/20 09:55 Dose: 200 mls/hr Documented by: Lorazepam (Ativan) 2 mg IVPUSH ONETIME ONE Stop: 05/28/20 23:44 Last Admin: 05/29/20 00:01 Dose: 2 mg Documented by: Lorazepam (Ativan) 0 mg IVPUSH Q4H PRN; Protocol PRN Reason: Withdrawal Symptoms Last Admin: 05/29/20 08:10 Dose: 2 mg Documented by: Lorazepam (Ativan) Confirm Administered Dose 2 mg .ROUTE .STK-MED ONE Stop: 05/29/20 17:30 Last Admin: 05/29/20 17:43 Dose: 2 mg Documented by: Morphine Sulfate (Morphine) 2 mg IVPUSH Q4H PRN PRN Reason: Pain Last Admin: 05/29/20 11:06 Dose: 2 mg Documented by: Vancomycin HCl (Pharmacy To Dose - Vancomycin) 1 dose .XX ASDIRECTED [facility] Vancomycin HCl (Vancocin) Confirm Administered Dose 1 gm .ROUTE .STK-MED ONE Stop: 05/30/20 00:24 Last Admin: 05/30/20 01:08 Dose: Not Given Documented by: - Exam HEENT: Scleral Icterus GI/Abdominal Exam: Distended Sepsis Event Note - Evaluation Sepsis Screening Result: Severe Sepsis Risk - Focused Exam Vital Signs: Vital Signs Temp Resp BP Pulse Ox 05/31/20 15:00 27 H 121/76 94 L 05/31/20 14:00 24 H 118/81 94 L 05/31/20 13:00 26 H 124/81 94 L 05/31/20 12:00 99.1 F 24 H 131/96 H 96 05/31/20 11:00 24 H 143/109 H 95 05/31/20 10:00 27 H 156/112 H 94 L 05/31/20 09:00 29 H 134/101 H 95 05/31/20 08:00 34 H 142/103 H 96 05/31/20 07:00 26 H 144/98 H 95 05/31/20 06:00 27 H 142/103 H 95 05/31/20 05:00 35 H 131/95 H 96 05/31/20 04:00 33 H 128/89 97 Date Exam was Performed: 05/31/20 Time Exam was Performed: 15:15 - Problem List Review Problem List Initiated/Reviewed/Updated: Yes - My Orders Last 24 Hours: Active Orders 24 hr Category Date Time Status Height and Weight [RC] DAILY Care 05/31/20 12:47 Active Intake and Output Strict [RC] Q12H Care 05/31/20 12:47 Active Clear Liquid Diet [DIET] Diet 05/30/20 Dinner Active CBC WITH AUTO DIFF [HEME] AM Lab 06/01/20 05:11 Ordered CBC WITH AUTO DIFF [HEME] AM Lab 06/02/20 05:11 Ordered COMPREHENSIVE METABOLIC PN,CMP [CHEM] AM Lab 06/01/20 05:11 Ordered COMPREHENSIVE METABOLIC PN,CMP [CHEM] AM Lab 06/02/20 05:11 Ordered HEPATITIS PANEL (4) [REF] Routine Lab 05/31/20 11:32 Received MAGNESIUM [CHEM] AM Lab 06/01/20 05:11 Ordered MAGNESIUM [CHEM] AM Lab 06/02/20 05:11 Ordered PHOSPHORUS [CHEM] AM Lab 06/01/20 05:11 Ordered PHOSPHORUS [CHEM] AM Lab 06/02/20 05:11 Ordered Lactated Ringers [Ringers, Lactated] 1,000 ml Med 05/31/20 15:15 Active IV Q8H Potassium Phosphates 30 mmole Med 05/31/20 08:07 Active Sodium Chloride 0.9% [Normal Saline] 1,000 ml IV ONETIME Medication Orders Chlordiazepoxide HCl (Librium) 50 mg PO BID [facility] Last Admin: 05/31/20 09:15 Dose: 50 mg Documented by: Admin: 05/30/20 20:58 Dose: 50 mg Documented by: Admin: 05/30/20 08:44 Dose: 50 mg Documented by: TALI Enoxaparin Sodium (Lovenox) 40 mg SUBCUT Q24H [facility] Last Admin: 05/30/20 15:40 Dose: Not Given Documented by: Admin: 05/29/20 15:52 Dose: 40 mg Documented by: CATHY Folic Acid (Folic Acid) 1 mg IV DAILY [facility] Last Admin: 05/31/20 09:30 Dose: 1 mg Documented by: Admin: 05/30/20 08:43 Dose: 1 mg Documented by: TALI Pantoprazole Sodium 40 mg/ (Sodium Chloride) 10 mls @ 300 mls/hr IV DAILY [facility] Last Admin: 05/31/20 09:25 Dose: 300 mls/hr Documented by: Infusion: 05/30/20 08:44 Dose: 300 mls/hr Documented by: Admin: 05/30/20 08:42 Dose: 300 mls/hr Documented by: Infusion: 05/29/20 08:09 Dose: 300 mls/hr Documented by: Admin: 05/29/20 08:07 Dose: 300 mls/hr Documented by: SWATI Thiamine HCl 100 mg/ Sodium (Chloride) 101 mls @ 202 mls/hr IV DAILY [facility] Last Admin: 05/31/20 10:47 Dose: 202 mls/hr Documented by: Infusion: 05/30/20 09:51 Dose: 202 mls/hr Documented by: Admin: 05/30/20 09:21 Dose: 202 mls/hr Documented by: TALI Potassium Phosphate 30 mmole/ (Sodium Chloride) 1,010 mls @ 125 mls/hr IV ONETIME ONE Stop: 05/31/20 16:11 Last Infusion: 05/31/20 14:15 Dose: 125 mls/hr Documented by: Infusion: 05/31/20 13:30 Dose: 0 mls/hr Documented by: Admin: 05/31/20 09:08 Dose: 125 mls/hr Documented by: TALI Lactated Ringer's (Ringers, Lactated) 1,000 mls @ 125 mls/hr IV Q8H [facility] Last Admin: 05/31/20 15:11 Dose: 125 mls/hr Documented by: TALI Lorazepam (Ativan) 0 mg IVPUSH Q1H PRN; Protocol PRN Reason: Withdrawal Symptoms Last Admin: 05/29/20 23:29 Dose: 2 mg Documented by: Admin: 05/29/20 21:13 Dose: 2 mg Documented by: Admin: 05/29/20 19:53 Dose: 2 mg Documented by: Admin: 05/29/20 18:39 Dose: 1 mg Documented by: CATHY Morphine Sulfate (Morphine) 1 mg IVPUSH Q4H PRN PRN Reason: Pain Last Admin: 05/31/20 07:03 Dose: 1 mg Documented by: Admin: 05/31/20 00:50 Dose: 1 mg Documented by: Admin: 05/30/20 20:17 Dose: 1 mg Documented by: Admin: 05/30/20 13:55 Dose: 1 mg Documented by: TALI Ondansetron HCl (Zofran) 4 mg IVPUSH Q4H PRN PRN Reason: Nausea/Vomitting Last Admin: 05/29/20 07:10 Dose: 4 mg Documented by: PASTGEN - Assessment Assessment (Free Text/Narrative):: T bili elevated to 9; MRCP results noted, CBD dilated to 6, upper limit of normal, no stones; with increase in abd girdle, likely from ascites, and elevated tbili, apparantly heading to liver failure, pt may benefit from transfer to higher facilities with ready access to GI specialist. dulcolax 10 mg per rectum for BM, as well as t. Bili, maybe. - Plan Plan (Free Text/Narrative):: T bili elevated to 9; MRCP results noted, CBD dilated to 6, upper limit of normal, no stones; with increase in abd girdle, likely from ascites, and elevated tbili, apparantly heading to liver failure, pt may benefit from transfer to higher facilities with ready access to GI specialist. dulcolax 10 mg per rectum for BM, as well as t. Bili, maybe.
--- NOTE | 2020-05-31 16:58 | PCM.SN.2 ---
- Free Text/Narrative Note: Spoke with GI specialist Dr Francis in [place] regarding Negra. Reports this is expected findings for Alcoholic hepatitis and pancreatitis. Bilirubin may elevate a little more then plateau and decrease, all depending on extent of liver injury. Recommended obtaining direct/indirect bilirubin. Calculated discriminant function, what was 10.4, would not benefit from glucocorticoids as score is not over 32. Agreed with current treatment plan. Discussed at length with Dr Burden. Spoke with Negra and father at bedside.
--- NOTE | 2020-05-31 19:24 | PN ---
THC Physician - Brief Progress [id number]/14/2020 19:18[facility] annaJermaineDICK - SUHAIL (JOSE ANTONIO) - PELON HARTDate of Service 05/31/2020 19:18HPI/Events of Note Glucose RoundsPt's BG have been elevated since yesterday > 200. Will add low dose SSI and alisa nue to monitor.Interventions Major-Hyperglycemia - active titration of insulin therapyIntermediate-Be st-practice therapies (e.g. VTE, beta anitra, etc.), Communication with other healthcare providers a nd/or family, Medication change / dose adjustmentElectronically Signed by: DUDLEY NAJERA) on 19:23
[2020-05-31] MEDS: LORazepam 2 MG/ML SDV IVPUSH PRN ×2 (21:06→22:50)
[2020-05-31] MEDS ORDERED: Insulin Aspart 100 Units/ML 3 ML Pen SUBCUT ONE (23:12)
[2020-06-01] MEDS: Morphine 2 MG/ML SYRINGE IVPUSH PRN ×4 (03:55→21:25)
[2020-06-01] MEDS: Insulin Regular, Human 100 Units/ML 10 ML Vial SUBCUT SCH ×2 (05:30→14:43)
[2020-06-01 07:16] LABS: BLOOD UREA NITROGEN,BUN 7 mg/dL (7.0-18.0); CARBON DIOXIDE,CO2 25.6 mmol/L (21.0-32.0); CHLORIDE,CL 96 mmol/L (98-107); GLUCOSE RANDOM 221 mg/dL (74-106); POTASSIUM,K 4.1 mmol/L (3.5-5.1); SODIUM,NA 131 mmol/L (136-145)
[2020-06-01] MEDS ORDERED: Insulin Regular, Human 100 Units/ML 10 ML Vial SUBCUT SCH ×2 (07:30→17:00)
[2020-06-01] MEDS: Folic Acid 50 MG/10 ML MDV IV SCH (08:21)
[2020-06-01] MEDS: Pantoprazole 40 MG in Sodium Chloride 0.9% 10 ML IV SCH (08:23)
[2020-06-01] MEDS: chlordiazePOXIDE 25 MG Cap PO SCH ×2 (08:51→20:24)
[2020-06-01] MEDS: Lactated Ringers 1,000 ML IV SCH ×2 (08:52→20:24)
--- NOTE | 2020-06-01 09:16 | PCM.PN ---
- General Info Date of Service: 06/01/20 Admission Dx/Problem (Free Text): Admission Diagnosis/Problem Admission Diagnosis/Problem Pancreatitis Subjective Update: Feeling a little improved today. Pain to abdomen is better, but still 4/10 today. Tolerating CL diet. No chest pain. Abdominal distension improving. Functional Status: Reports: Pain Controlled, Tolerating Diet, Ambulating, Urinating - Review of Systems HEENT: Reports: No Symptoms. Denies: Headaches, Visual Changes Pulmonary: Reports: No Symptoms. Denies: Shortness of Breath Cardiovascular: Reports: No Symptoms. Denies: Chest Pain Gastrointestinal: Reports: Abdominal Pain (epigastric and RUQ) Genitourinary: Reports: No Symptoms. Denies: Dysuria, Frequency, Burning Musculoskeletal: Reports: No Symptoms Skin: Reports: No Symptoms Neurological: Reports: No Symptoms Psychiatric: Reports: No Symptoms - Patient Data Vitals - Most Recent: Last Vital Signs Temp 97.9 F 06/01/20 08:00 Pulse 120 H 05/29/20 19:00 Resp 33 H 06/01/20 08:00 BP 138/97 H 06/01/20 08:00 Pulse Ox 97 06/01/20 08:00 Weight - Most Recent: 77.196 kg I&O - Last 24 Hours: Intake & Output 05/31/20 06/01/20 06/01/20 22:59 06:59 14:59 Intake Total 2931 3150 Output Total 2860 4000 Balance 71 -850 Lab Results Last 24 Hours: Laboratory Results - last 24 hr 05/31/20 05/31/20 06/01/20 Range/Units 11:32 11:41 06:41 WBC 9.80 (4.0-11.0) K/uL RBC 3.39 L (4.30-5.90) M/uL Hgb 11.4 L (12.0-16.0) g/dL Hct 34.2 L (36.0-46.0) % MCV 100.9 H (80.0-98.0) fL MCH 33.6 H (27.0-32.0) pg MCHC 33.3 (31.0-37.0) g/dL RDW Std Deviation 49.7 (28.0-62.0) fl RDW Coeff of Vanessa 14 (11.0-15.0) % Plt Count 112 L (150-400) K/uL MPV 10.60 (7.40-12.00) fL Neut % (Auto) 64.0 (48.0-80.0) % Lymph % (Auto) 16.8 (16.0-40.0) % [place] % (Auto) 18.2 H (0.0-15.0) % Eos % (Auto) 0.8 (0.0-7.0) % Baso % (Auto) 0.2 (0.0-1.5) % Neut # (Auto) 6.3 H (1.4-5.7) K/uL Lymph # (Auto) 1.7 (0.6-2.4) K/uL [place] # (Auto) 1.8 H (0.0-0.8) K/uL Eos # (Auto) 0.1 (0.0-0.7) K/uL Baso # (Auto) 0.0 (0.0-0.1) K/uL Nucleated RBC % 0.0 /100WBC Nucleated RBCs # 0 K/uL INR 1.10 Sodium (136-145) mmol/L Potassium (3.5-5.1) mmol/L Chloride (98-107) mmol/L Carbon Dioxide (21.0-32.0) mmol/L BUN (7.0-18.0) mg/dL Creatinine (0.6-1.0) mg/dL Est Cr Clr Drug Dosing mL/min Estimated GFR (MDRD) ml/min Glucose (74-106) mg/dL POC Glucose 213 H (60-110) mg/dL Calcium (8.5-10.1) mg/dL Phosphorus (2.6-4.7) mg/dL Magnesium (1.8-2.4) mg/dL Total Bilirubin (0.2-1.0) mg/dL Direct Bilirubin (0.0-0.5) mg/dL Indirect Bilirubin AST (15-37) IU/L ALT (14-63) IU/L Alkaline Phosphatase (46-116) U/L Total Protein (6.4-8.2) g/dL Albumin (3.4-5.0) g/dL Globulin (2.6-4.0) g/dL Albumin/Globulin Ratio (0.9-1.6) 07/15/20 Range/Units 06:41 WBC (4.0-11.0) K/uL RBC (4.30-5.90) M/uL Hgb (12.0-16.0) g/dL Hct (36.0-46.0) % MCV (80.0-98.0) fL MCH (27.0-32.0) pg MCHC (31.0-37.0) g/dL RDW Std Deviation (28.0-62.0) fl RDW Coeff of Vanessa (11.0-15.0) % Plt Count (150-400) K/uL MPV (7.40-12.00) fL Neut % (Auto) (48.0-80.0) % Lymph % (Auto) (16.0-40.0) % [place] % (Auto) (0.0-15.0) % Eos % (Auto) (0.0-7.0) % Baso % (Auto) (0.0-1.5) % Neut # (Auto) (1.4-5.7) K/uL Lymph # (Auto) (0.6-2.4) K/uL [place] # (Auto) (0.0-0.8) K/uL Eos # (Auto) (0.0-0.7) K/uL Baso # (Auto) (0.0-0.1) K/uL Nucleated RBC % /100WBC Nucleated RBCs # K/uL INR Sodium 131 L (136-145) mmol/L Potassium 4.1 (3.5-5.1) mmol/L Chloride 96 L (98-107) mmol/L Carbon Dioxide 25.6 (21.0-32.0) mmol/L BUN 7 (7.0-18.0) mg/dL Creatinine 0.7 (0.6-1.0) mg/dL Est Cr Clr Drug Dosing 107.67 mL/min Estimated GFR (MDRD) > 60.0 ml/min Glucose 221 H (74-106) mg/dL POC Glucose (60-110) mg/dL Calcium 8.3 L (8.5-10.1) mg/dL Phosphorus 2.1 L (2.6-4.7) mg/dL Magnesium 2.3 (1.8-2.4) mg/dL Total Bilirubin 9.8 H (0.2-1.0) mg/dL Direct Bilirubin 7.80 H (0.0-0.5) mg/dL Indirect Bilirubin 2.00 AST 124 H (15-37) IU/L ALT 85 H (14-63) IU/L Alkaline Phosphatase 97 (46-116) U/L Total Protein 5.7 L (6.4-8.2) g/dL Albumin 2.5 L (3.4-5.0) g/dL Globulin 3.2 (2.6-4.0) g/dL Albumin/Globulin Ratio 0.8 L (0.9-1.6) [place] Results Last 24 Hours: Microbiology 05/29/20 13:13 Aerobic Blood Culture - Preliminary Blood - Venous - Lab Draw NO GROWTH AFTER 2 DAYS Anaerobic Blood Culture - Preliminary NO GROWTH AFTER 2 DAYS 05/29/20 12:46 Aerobic Blood Culture - Preliminary Blood - Venous NO GROWTH AFTER 2 DAYS Anaerobic Blood Culture - Preliminary NO GROWTH AFTER 2 DAYS Med Orders - Current: Current Medications Chlordiazepoxide HCl (Librium) 25 mg PO BID [facility] Last Admin: 06/01/20 08:51 Dose: 25 mg Documented by: Enoxaparin Sodium (Lovenox) 40 mg SUBCUT Q24H [facility] Last Admin: 05/31/20 15:18 Dose: Not Given Documented by: Folic Acid (Folic Acid) 1 mg IV DAILY [facility] Last Admin: 06/01/20 08:21 Dose: 1 mg Documented by: Pantoprazole Sodium 40 mg/ (Sodium Chloride) 10 mls @ 300 mls/hr IV DAILY [facility] Last Admin: 06/01/20 08:23 Dose: 300 mls/hr Documented by: Thiamine HCl 100 mg/ Sodium (Chloride) 101 mls @ 202 mls/hr IV DAILY [facility] Last Admin: 05/31/20 10:47 Dose: 202 mls/hr Documented by: Lactated Ringer's (Ringers, Lactated) 1,000 mls @ 100 mls/hr IV ASDIRECTED [facility] Last Admin: 06/01/20 08:52 Dose: 100 mls/hr Documented by: Insulin Human Regular (Novolin R) 0 unit SUBCUT TID [facility]; Protocol Last Admin: 06/01/20 05:30 Dose: Not Given Documented by: Lorazepam (Ativan) 0 mg IVPUSH Q1H PRN; Protocol PRN Reason: Withdrawal Symptoms Last Admin: 05/31/20 22:50 Dose: 2 mg Documented by: Morphine Sulfate (Morphine) 1 mg IVPUSH Q4H PRN PRN Reason: Pain Last Admin: 06/01/20 09:01 Dose: 1 mg Documented by: Ondansetron HCl (Zofran) 4 mg IVPUSH Q4H PRN PRN Reason: Nausea/Vomitting Last Admin: 05/29/20 07:10 Dose: 4 mg Documented by: Discontinued Medications Chlordiazepoxide HCl (Librium) 25 mg PO BID [facility] Last Admin: 05/29/20 20:07 Dose: 25 mg Documented by: Chlordiazepoxide HCl (Librium) 25 mg PO ONETIME ONE Stop: 05/29/20 18:20 Last Admin: 05/29/20 18:38 Dose: 25 mg Documented by: Chlordiazepoxide HCl (Librium) 50 mg PO BID [facility] Last Admin: 05/31/20 20:29 Dose: 50 mg Documented by: Hydromorphone HCl (Dilaudid) 1 mg IVPUSH ONETIME ONE Stop: 05/28/20 22:00 Last Admin: 05/28/20 22:20 Dose: 1 mg Documented by: Hydromorphone HCl (Dilaudid) 1 mg IVPUSH ONETIME ONE Stop: 05/28/20 23:44 Last Admin: 05/29/20 00:04 Dose: 1 mg Documented by: Lactated Ringer's (Ringers, Lactated) 1,000 mls @ 999 mls/hr IV .BOLUS ONE Stop: 05/28/20 22:59 Last Admin: 05/28/20 22:19 Dose: 999 mls/hr Documented by: Lactated Ringer's (Ringers, Lactated) 1,000 mls @ 125 mls/hr IV ASDIRECTED [facility] Last Admin: 05/29/20 00:00 Dose: 125 mls/hr Documented by: Lactated Ringer's (Ringers, Lactated) 1,000 mls @ 200 mls/hr IV ASDIRECTED [facility] Last Infusion: 05/31/20 15:10 Dose: 125 mls/hr Documented by: Lactated Ringer's (Ringers, Lactated) 1,000 mls @ 999 mls/hr IV ONETIME ONE Stop: 05/29/20 10:26 Last Admin: 05/29/20 09:33 Dose: 999 mls/hr Documented by: Piperacillin Sod/Tazobactam (Sod 3.375 gm/ Sodium Chloride) 100 mls @ 200 mls/hr IV Q8H [facility] Last Admin: 05/31/20 03:07 Dose: 200 mls/hr Documented by: Magnesium Sulfate 2 gm/ Premix 50 mls @ 50 mls/hr IV ONETIME ONE Stop: 05/29/20 11:17 Last Admin: 05/29/20 11:15 Dose: 50 mls/hr Documented by: Multivitamins/Minerals 10 ml/Thiamine HCl 100 mg/ Folic Acid 1 mg/ Sodium Chloride 1,011.2 mls @ 200 mls/hr IV ONETIME ONE Stop: 05/29/20 15:21 Last Admin: 05/29/20 13:18 Dose: Not Given Documented by: Multivitamins/Minerals 10 ml/Thiamine HCl 100 mg/ Folic Acid 1 mg/ Sodium Chloride 1,011.2 mls @ 200 mls/hr IV ONETIME ONE Stop: 05/29/20 17:18 Last Admin: 05/29/20 13:13 Dose: 200 mls/hr Documented by: Lactated Ringer's (Ringers, Lactated) 1,000 mls @ 999 mls/hr IV ONETIME ONE Stop: 05/29/20 13:26 Last Admin: 05/29/20 13:10 Dose: 999 mls/hr Documented by: Vancomycin HCl 1.5 gm/ Premix 300 mls @ 200 mls/hr IV ONETIME ONE Stop: 05/29/20 14:34 Last Admin: 05/29/20 14:30 Dose: 200 mls/hr Documented by: Lactated Ringer's (Ringers, Lactated) 1,000 mls @ 999 mls/hr IV .BOLUS ONE Stop: 05/29/20 14:08 Last Admin: 05/29/20 14:13 Dose: 999 mls/hr Documented by: Vancomycin HCl 1 gm/ Sodium (Chloride) 250 mls @ 166.667 mls/hr IV Q12H [facility] Last Admin: 05/30/20 01:12 Dose: 166.667 mls/hr Documented by: Lactated Ringer's (Ringers, Lactated) 1,000 mls @ 500 mls/hr IV .BOLUS ONE Stop: 05/29/20 19:37 Last Admin: 05/29/20 18:26 Dose: 500 mls/hr Documented by: Multivitamins/Minerals 10 ml/Thiamine HCl 100 mg/ Folic Acid 1 mg/ Sodium Chloride 1,011.2 mls @ 500 mls/hr IV ONETIME ONE Stop: 05/29/20 22:50 Last Infusion: 05/29/20 23:09 Dose: 999 mls/hr Documented by: Sodium Chloride (Normal Saline (Advbag)) Confirm Administered Dose 250 mls @ as directed .ROUTE .STK-MED ONE Stop: 05/30/20 00:25 Last Admin: 05/30/20 01:08 Dose: Not Given Documented by: Lactated Ringer's (Ringers, Lactated) 1,000 mls @ 999 mls/hr IV .BOLUS ONE Stop: 05/30/20 09:05 Last Admin: 05/30/20 08:15 Dose: 999 mls/hr Documented by: Magnesium Sulfate 4 gm/Potassium Phosphate 20 mmole/Sodium Chloride 1,014.6667 mls @ 150 mls/hr IV ONETIME ONE Stop: 05/30/20 15:15 Last Admin: 05/30/20 08:44 Dose: 150 mls/hr Documented by: Piperacillin Sod/Tazobactam (Sod 3.375 gm/ Sodium Chloride) 100 mls @ 200 mls/hr IV Q6H [facility] Last Admin: 05/31/20 09:55 Dose: 200 mls/hr Documented by: Potassium Phosphate 30 mmole/ (Sodium Chloride) 1,010 mls @ 125 mls/hr IV ONETIME ONE Stop: 05/31/20 16:11 Last Infusion: 05/31/20 14:15 Dose: 125 mls/hr Documented by: Lactated Ringer's (Ringers, Lactated) 1,000 mls @ 125 mls/hr IV Q8H [facility] Last Infusion: 05/31/20 22:48 Dose: Infused Documented by: Insulin Aspart (Novolog) 7 unit SUBCUT ONETIME ONE Stop: 06/01/20 23:01 Insulin Aspart (Novolog) 7 unit SUBCUT ONETIME ONE Stop: 05/31/20 23:13 Last Admin: 05/31/20 23:22 Dose: 7 units Documented by: Insulin Human Regular (Novolin R) 0 unit SUBCUT [facility]IDAC [place]; Protocol Lorazepam (Ativan) 2 mg IVPUSH ONETIME ONE Stop: 05/28/20 23:44 Last Admin: 05/29/20 00:01 Dose: 2 mg Documented by: Lorazepam (Ativan) 0 mg IVPUSH Q4H PRN; Protocol PRN Reason: Withdrawal Symptoms Last Admin: 05/29/20 08:10 Dose: 2 mg Documented by: Lorazepam (Ativan) Confirm Administered Dose 2 mg .ROUTE .STK-MED ONE Stop: 05/29/20 17:30 Last Admin: 05/29/20 17:43 Dose: 2 mg Documented by: Morphine Sulfate (Morphine) 2 mg IVPUSH Q4H PRN PRN Reason: Pain Last Admin: 05/29/20 11:06 Dose: 2 mg Documented by: Vancomycin HCl (Pharmacy To Dose - Vancomycin) 1 dose .XX ASDIRECTED [facility] Vancomycin HCl (Vancocin) Confirm Administered Dose 1 gm .ROUTE .STK-MED ONE Stop: 05/30/20 00:24 Last Admin: 05/30/20 01:08 Dose: Not Given Documented by: - Exam General: Alert, Oriented, Cooperative, No Acute Distress HEENT: Scleral Icterus Lungs: Clear to Auscultation, Normal Respiratory Effort Cardiovascular: Regular Rate, Regular Rhythm GI/Abdominal Exam: Normal Bowel Sounds, Soft, Distended, Tender (RUQ and epigastric region) Back Exam: Normal Inspection, Full Range of Motion Extremities: Normal Inspection, Normal Range of Motion, Non-Tender, No Pedal Edema Neurological: No New Focal Deficit Psy/Mental Status: Alert, Normal Affect, Normal Mood Sepsis Event Note - Evaluation Sepsis Screening Result: Sepsis Risk - Focused Exam Vital Signs: Vital Signs Temp Resp BP Pulse Ox 06/01/20 08:00 97.9 F 33 H 138/97 H 97 06/01/20 07:00 16 134/99 H 97 06/01/20 06:00 28 H 131/94 H 97 06/01/20 05:00 33 H 132/97 H 95 06/01/20 04:00 98.2 F 29 H 144/95 H 95 06/01/20 03:00 35 H 131/96 H 96 06/01/20 02:00 35 H 147/105 H 95 07/15/20 01:00 34 H 124/89 93 L 06/01/20 00:00 99.2 F 27 H 147/104 H 91 L 05/31/20 23:00 38 H 128/88 94 L 05/31/20 22:00 40 H 146/106 H 96 Date Exam was Performed: 06/01/20 Time Exam was Performed: 12:22 - Problem List & Annotations (1) Lactic acid acidosis SNOMED Code(s): 10591342 Code(s): E87.2 - ACIDOSIS Status: Resolved Current Visit: Yes (2) Sinus tachycardia SNOMED Code(s): 16120622 Code(s): R00.0 - TACHYCARDIA, UNSPECIFIED Status: Acute Current Visit: Yes (3) Hyperbilirubinemia SNOMED Code(s): 01524198 Code(s): E80.6 - OTHER DISORDERS OF BILIRUBIN METABOLISM Status: Acute Current Visit: Yes (4) Alcohol abuse SNOMED Code(s): 55644630 Code(s): F10.10 - ALCOHOL ABUSE, UNCOMPLICATED Status: Acute Current Visit: Yes (5) Alcohol withdrawal SNOMED Code(s): 603678050 Code(s): F10.239 - ALCOHOL DEPENDENCE WITH WITHDRAWAL, UNSPECIFIED Status: Acute Current Visit: Yes (6) Pancreatitis SNOMED Code(s): 68344689 Code(s): K85.90 - ACUTE PANCREATITIS WITHOUT NECROSIS OR INFECTION, UNSP Status: Acute Current Visit: Yes (7) Alcoholic hepatitis SNOMED Code(s): 058649024 Code(s): K70.10 - ALCOHOLIC HEPATITIS WITHOUT ASCITES Status: Acute Current Visit: Yes Qualifiers: Ascites presence: without ascites Qualified Code(s): K70.10 - Alcoholic hepatitis without ascites - Problem List Review Problem List Initiated/Reviewed/Updated: Yes - My Orders Last 24 Hours: My Active Orders 05/31/20 11:32 HEPATITIS PANEL (4) [REF] Routine 05/31/20 12:47 Height and Weight [RC] DAILY Intake and Output Strict [RC] Q12H 05/31/20 17:52 Incentive Spirometry [RT Incentive Spirometry] [RC] Q1HWA 06/01/20 09:00 chlordiazePOXIDE [Librium] 25 mg PO BID 06/02/20 05:11 CBC WITH AUTO DIFF [HEME] AM COMPREHENSIVE METABOLIC PN,CMP [CHEM] AM MAGNESIUM [CHEM] AM PHOSPHORUS [CHEM] AM - Plan Plan:: 30 y/o F admitted for acute alcoholic pancreatitis 1. Acute alcoholic pancreatitis - CL going well, still having mild pain will hold off on advancing this morning. - LR 125 mls/hr - Continue Protonix daily IV - Monitor electrolytes and replace as needed - MRCP ruled out stone 2. Alcohol withdrawal - Continue CIWAA protocol with Ativan - Start tapering Librium, now 25 mg BID - Thiamine and folic acid daily - HIGH FALL RISK due to alcohol withdrawal - Monitor closely 3. Alcoholic hepatitis: - Bilirubin plateaued today, 9.8. Continue to monitor. - Hepatitis panel pending - INR 1.1 - Hepatomegaly noted with severe fatty infiltration noted on imaging. - Spoke with Dr Francis, GI specialist. Agreed with Alcoholic hepatitis no need for transfer, continue current course of treatment. 4. Hyperglycemia - Novolog SSI TID - A1c 5.1 5. Electrolyte abnormalities - Replace phosphorus today PO, recheck in am VTE prophylaxis: Lovenox GI prophylaxis: Protonix Dispo: 2-3 days pending improvement, transfer to med/surg with telemetry. Arranging care for outpatient rehab, as patient and family do not have the means for inpatient rehabilitation.
[2020-06-01] MEDS: Thiamine 100 MG in Sodium Chloride 0.9% 100 ML IV SCH (10:39)
--- NOTE | 2020-06-01 11:31 | PCM.SURGPN ---
- General Info Date of Service: 06/01/20 Pain Score: 4 - Review of Systems General: Reports: No Symptoms (much more engaging, pain "better") - Patient Data Vitals - Most Recent: Last Vital Signs Temp 97.5 F 06/01/20 09:00 Pulse 120 H 05/29/20 19:00 Resp 22 H 06/01/20 10:00 BP 134/97 H 06/01/20 10:00 Pulse Ox 94 L 06/01/20 10:00 Weight - Most Recent: 170 lb 3 oz I&O - Last 24 Hours: Intake & Output 05/31/20 06/01/20 06/01/20 22:59 06:59 14:59 Intake Total 2931 3150 Output Total 2860 4000 Balance 71 -850 Lab Results Last 24 Hrs: Laboratory Results - last 24 hr 05/31/20 05/31/20 06/01/20 Range/Units 11:32 11:41 06:41 WBC 9.80 (4.0-11.0) K/uL RBC 3.39 L (4.30-5.90) M/uL Hgb 11.4 L (12.0-16.0) g/dL Hct 34.2 L (36.0-46.0) % MCV 100.9 H (80.0-98.0) fL MCH 33.6 H (27.0-32.0) pg MCHC 33.3 (31.0-37.0) g/dL RDW Std Deviation 49.7 (28.0-62.0) fl RDW Coeff of Vanessa 14 (11.0-15.0) % Plt Count 112 L (150-400) K/uL MPV 10.60 (7.40-12.00) fL Neut % (Auto) 64.0 (48.0-80.0) % Lymph % (Auto) 16.8 (16.0-40.0) % [place] % (Auto) 18.2 H (0.0-15.0) % Eos % (Auto) 0.8 (0.0-7.0) % Baso % (Auto) 0.2 (0.0-1.5) % Neut # (Auto) 6.3 H (1.4-5.7) K/uL Lymph # (Auto) 1.7 (0.6-2.4) K/uL [place] # (Auto) 1.8 H (0.0-0.8) K/uL Eos # (Auto) 0.1 (0.0-0.7) K/uL Baso # (Auto) 0.0 (0.0-0.1) K/uL Nucleated RBC % 0.0 /100WBC Nucleated RBCs # 0 K/uL INR 1.10 Sodium (136-145) mmol/L Potassium (3.5-5.1) mmol/L Chloride (98-107) mmol/L Carbon Dioxide (21.0-32.0) mmol/L BUN (7.0-18.0) mg/dL Creatinine (0.6-1.0) mg/dL Est Cr Clr Drug Dosing mL/min Estimated GFR (MDRD) ml/min Glucose (74-106) mg/dL POC Glucose 213 H (60-110) mg/dL Calcium (8.5-10.1) mg/dL Phosphorus (2.6-4.7) mg/dL Magnesium (1.8-2.4) mg/dL Total Bilirubin (0.2-1.0) mg/dL Direct Bilirubin (0.0-0.5) mg/dL Indirect Bilirubin AST (15-37) IU/L ALT (14-63) IU/L Alkaline Phosphatase (46-116) U/L Total Protein (6.4-8.2) g/dL Albumin (3.4-5.0) g/dL Globulin (2.6-4.0) g/dL Albumin/Globulin Ratio (0.9-1.6) 06/01/20 Range/Units 06:41 WBC (4.0-11.0) K/uL RBC (4.30-5.90) M/uL Hgb (12.0-16.0) g/dL Hct (36.0-46.0) % MCV (80.0-98.0) fL MCH (27.0-32.0) pg MCHC (31.0-37.0) g/dL RDW Std Deviation (28.0-62.0) fl RDW Coeff of Vanessa (11.0-15.0) % Plt Count (150-400) K/uL MPV (7.40-12.00) fL Neut % (Auto) (48.0-80.0) % Lymph % (Auto) (16.0-40.0) % [place] % (Auto) (0.0-15.0) % Eos % (Auto) (0.0-7.0) % Baso % (Auto) (0.0-1.5) % Neut # (Auto) (1.4-5.7) K/uL Lymph # (Auto) (0.6-2.4) K/uL [place] # (Auto) (0.0-0.8) K/uL Eos # (Auto) (0.0-0.7) K/uL Baso # (Auto) (0.0-0.1) K/uL Nucleated RBC % /100WBC Nucleated RBCs # K/uL INR Sodium 131 L (136-145) mmol/L Potassium 4.1 (3.5-5.1) mmol/L Chloride 96 L (98-107) mmol/L Carbon Dioxide 25.6 (21.0-32.0) mmol/L BUN 7 (7.0-18.0) mg/dL Creatinine 0.7 (0.6-1.0) mg/dL Est Cr Clr Drug Dosing 107.67 mL/min Estimated GFR (MDRD) > 60.0 ml/min Glucose 221 H (74-106) mg/dL POC Glucose (60-110) mg/dL Calcium 8.3 L (8.5-10.1) mg/dL Phosphorus 2.1 L (2.6-4.7) mg/dL Magnesium 2.3 (1.8-2.4) mg/dL Total Bilirubin 9.8 H (0.2-1.0) mg/dL Direct Bilirubin 7.80 H (0.0-0.5) mg/dL Indirect Bilirubin 2.00 AST 124 H (15-37) IU/L ALT 85 H (14-63) IU/L Alkaline Phosphatase 97 (46-116) U/L Total Protein 5.7 L (6.4-8.2) g/dL Albumin 2.5 L (3.4-5.0) g/dL Globulin 3.2 (2.6-4.0) g/dL Albumin/Globulin Ratio 0.8 L (0.9-1.6) [place] Results Last 24 Hrs: Microbiology 05/29/20 13:13 Aerobic Blood Culture - Preliminary Blood - Venous - Lab Draw NO GROWTH AFTER 2 DAYS Anaerobic Blood Culture - Preliminary NO GROWTH AFTER 2 DAYS 05/29/20 12:46 Aerobic Blood Culture - Preliminary Blood - Venous NO GROWTH AFTER 2 DAYS Anaerobic Blood Culture - Preliminary NO GROWTH AFTER 2 DAYS Med Orders - Current: Current Medications Chlordiazepoxide HCl (Librium) 25 mg PO BID [facility] Last Admin: 06/01/20 08:51 Dose: 25 mg Documented by: Enoxaparin Sodium (Lovenox) 40 mg SUBCUT Q24H [facility] Last Admin: 05/31/20 15:18 Dose: Not Given Documented by: Folic Acid (Folic Acid) 1 mg IV DAILY [facility] Last Admin: 06/01/20 08:21 Dose: 1 mg Documented by: Pantoprazole Sodium 40 mg/ (Sodium Chloride) 10 mls @ 300 mls/hr IV DAILY [facility] Last Admin: 06/01/20 08:23 Dose: 300 mls/hr Documented by: Thiamine HCl 100 mg/ Sodium (Chloride) 101 mls @ 202 mls/hr IV DAILY [facility] Last Admin: 06/01/20 10:39 Dose: 202 mls/hr Documented by: Lactated Ringer's (Ringers, Lactated) 1,000 mls @ 100 mls/hr IV ASDIRECTED [facility] Last Admin: 06/01/20 08:52 Dose: 100 mls/hr Documented by: Insulin Human Regular (Novolin R) 0 unit SUBCUT TID [facility]; Protocol Last Admin: 06/01/20 05:30 Dose: Not Given Documented by: Lorazepam (Ativan) 0 mg IVPUSH Q1H PRN; Protocol PRN Reason: Withdrawal Symptoms Last Admin: 05/31/20 22:50 Dose: 2 mg Documented by: Morphine Sulfate (Morphine) 1 mg IVPUSH Q4H PRN PRN Reason: Pain Last Admin: 06/01/20 09:01 Dose: 1 mg Documented by: Ondansetron HCl (Zofran) 4 mg IVPUSH Q4H PRN PRN Reason: Nausea/Vomitting Last Admin: 05/29/20 07:10 Dose: 4 mg Documented by: Sodium Phosphate (Neutra-Phos) 250 mg PO QID [facility] Discontinued Medications Chlordiazepoxide HCl (Librium) 25 mg PO BID [facility] Last Admin: 05/29/20 20:07 Dose: 25 mg Documented by: Chlordiazepoxide HCl (Librium) 25 mg PO ONETIME ONE Stop: 05/29/20 18:20 Last Admin: 05/29/20 18:38 Dose: 25 mg Documented by: Chlordiazepoxide HCl (Librium) 50 mg PO BID [facility] Last Admin: 05/31/20 20:29 Dose: 50 mg Documented by: Hydromorphone HCl (Dilaudid) 1 mg IVPUSH ONETIME ONE Stop: 05/28/20 22:00 Last Admin: 05/28/20 22:20 Dose: 1 mg Documented by: Hydromorphone HCl (Dilaudid) 1 mg IVPUSH ONETIME ONE Stop: 05/28/20 23:44 Last Admin: 05/29/20 00:04 Dose: 1 mg Documented by: Lactated Ringer's (Ringers, Lactated) 1,000 mls @ 999 mls/hr IV .BOLUS ONE Stop: 05/28/20 22:59 Last Admin: 05/28/20 22:19 Dose: 999 mls/hr Documented by: Lactated Ringer's (Ringers, Lactated) 1,000 mls @ 125 mls/hr IV ASDIRECTED [facility] Last Admin: 05/29/20 00:00 Dose: 125 mls/hr Documented by: Lactated Ringer's (Ringers, Lactated) 1,000 mls @ 200 mls/hr IV ASDIRECTED [facility] Last Infusion: 05/31/20 15:10 Dose: 125 mls/hr Documented by: Lactated Ringer's (Ringers, Lactated) 1,000 mls @ 999 mls/hr IV ONETIME ONE Stop: 05/29/20 10:26 Last Admin: 05/29/20 09:33 Dose: 999 mls/hr Documented by: Piperacillin Sod/Tazobactam (Sod 3.375 gm/ Sodium Chloride) 100 mls @ 200 mls/hr IV Q8H [facility] Last Admin: 05/31/20 03:07 Dose: 200 mls/hr Documented by: Magnesium Sulfate 2 gm/ Premix 50 mls @ 50 mls/hr IV ONETIME ONE Stop: 05/29/20 11:17 Last Admin: 05/29/20 11:15 Dose: 50 mls/hr Documented by: Multivitamins/Minerals 10 ml/Thiamine HCl 100 mg/ Folic Acid 1 mg/ Sodium Chloride 1,011.2 mls @ 200 mls/hr IV ONETIME ONE Stop: 05/29/20 15:21 Last Admin: 05/29/20 13:18 Dose: Not Given Documented by: Multivitamins/Minerals 10 ml/Thiamine HCl 100 mg/ Folic Acid 1 mg/ Sodium Chloride 1,011.2 mls @ 200 mls/hr IV ONETIME ONE Stop: 05/29/20 17:18 Last Admin: 05/29/20 13:13 Dose: 200 mls/hr Documented by: Lactated Ringer's (Ringers, Lactated) 1,000 mls @ 999 mls/hr IV ONETIME ONE Stop: 05/29/20 13:26 Last Admin: 05/29/20 13:10 Dose: 999 mls/hr Documented by: Vancomycin HCl 1.5 gm/ Premix 300 mls @ 200 mls/hr IV ONETIME ONE Stop: 05/29/20 14:34 Last Admin: 05/29/20 14:30 Dose: 200 mls/hr Documented by: Lactated Ringer's (Ringers, Lactated) 1,000 mls @ 999 mls/hr IV .BOLUS ONE Stop: 05/29/20 14:08 Last Admin: 05/29/20 14:13 Dose: 999 mls/hr Documented by: Vancomycin HCl 1 gm/ Sodium (Chloride) 250 mls @ 166.667 mls/hr IV Q12H [facility] Last Admin: 05/30/20 01:12 Dose: 166.667 mls/hr Documented by: Lactated Ringer's (Ringers, Lactated) 1,000 mls @ 500 mls/hr IV .BOLUS ONE Stop: 05/29/20 19:37 Last Admin: 05/29/20 18:26 Dose: 500 mls/hr Documented by: Multivitamins/Minerals 10 ml/Thiamine HCl 100 mg/ Folic Acid 1 mg/ Sodium Chloride 1,011.2 mls @ 500 mls/hr IV ONETIME ONE Stop: 05/29/20 22:50 Last Infusion: 05/29/20 23:09 Dose: 999 mls/hr Documented by: Sodium Chloride (Normal Saline (Advbag)) Confirm Administered Dose 250 mls @ as directed .ROUTE .STK-MED ONE Stop: 05/30/20 00:25 Last Admin: 05/30/20 01:08 Dose: Not Given Documented by: Lactated Ringer's (Ringers, Lactated) 1,000 mls @ 999 mls/hr IV .BOLUS ONE Stop: 05/30/20 09:05 Last Admin: 05/30/20 08:15 Dose: 999 mls/hr Documented by: Magnesium Sulfate 4 gm/Potassium Phosphate 20 mmole/Sodium Chloride 1,014.6667 mls @ 150 mls/hr IV ONETIME ONE Stop: 05/30/20 15:15 Last Admin: 05/30/20 08:44 Dose: 150 mls/hr Documented by: Piperacillin Sod/Tazobactam (Sod 3.375 gm/ Sodium Chloride) 100 mls @ 200 mls/hr IV Q6H [facility] Last Admin: 05/31/20 09:55 Dose: 200 mls/hr Documented by: Potassium Phosphate 30 mmole/ (Sodium Chloride) 1,010 mls @ 125 mls/hr IV ONETIME ONE Stop: 05/31/20 16:11 Last Infusion: 05/31/20 14:15 Dose: 125 mls/hr Documented by: Lactated Ringer's (Ringers, Lactated) 1,000 mls @ 125 mls/hr IV Q8H [facility] Last Infusion: 05/31/20 22:48 Dose: Infused Documented by: Insulin Aspart (Novolog) 7 unit SUBCUT ONETIME ONE Stop: 06/01/20 23:01 Insulin Aspart (Novolog) 7 unit SUBCUT ONETIME ONE Stop: 05/31/20 23:13 Last Admin: 05/31/20 23:22 Dose: 7 units Documented by: Insulin Human Regular (Novolin R) 0 unit SUBCUT BIDAC [facility]; Protocol Lorazepam (Ativan) 2 mg IVPUSH ONETIME ONE Stop: 05/28/20 23:44 Last Admin: 05/29/20 00:01 Dose: 2 mg Documented by: Lorazepam (Ativan) 0 mg IVPUSH Q4H PRN; Protocol PRN Reason: Withdrawal Symptoms Last Admin: 05/29/20 08:10 Dose: 2 mg Documented by: Lorazepam (Ativan) Confirm Administered Dose 2 mg .ROUTE .STK-MED ONE Stop: 05/29/20 17:30 Last Admin: 05/29/20 17:43 Dose: 2 mg Documented by: Morphine Sulfate (Morphine) 2 mg IVPUSH Q4H PRN PRN Reason: Pain Last Admin: 05/29/20 11:06 Dose: 2 mg Documented by: Vancomycin HCl (Pharmacy To Dose - Vancomycin) 1 dose .XX ASDIRECTED [facility] Vancomycin HCl (Vancocin) Confirm Administered Dose 1 gm .ROUTE .STK-MED ONE Stop: 05/30/20 00:24 Last Admin: 05/30/20 01:08 Dose: Not Given Documented by: - Exam GI/Abdominal Exam: Distended Sepsis Event Note - Evaluation Sepsis Screening Result: Sepsis Risk - Focused Exam Vital Signs: Vital Signs Temp Resp BP Pulse Ox 06/01/20 10:00 22 H 134/97 H 94 L 06/01/20 09:00 97.5 F 36 H 134/97 H 96 06/01/20 08:00 97.9 F 33 H 138/97 H 97 06/01/20 07:00 16 134/99 H 97 06/01/20 06:00 28 H 131/94 H 97 06/01/20 05:00 33 H 132/97 H 95 06/01/20 04:00 98.2 F 29 H 144/95 H 95 06/01/20 03:00 35 H 131/96 H 96 06/01/20 02:00 35 H 147/105 H 95 06/01/20 01:00 34 H 124/89 93 L 06/01/20 00:00 99.2 F 27 H 147/104 H 91 L Date Exam was Performed: 06/01/20 Time Exam was Performed: 11:26 - Problem List Review Problem List Initiated/Reviewed/Updated: Yes - My Orders Last 24 Hours: Active Orders 24 hr Category Date Time Status Transfer Patient (Change bed) [ADT] Routine ADT 06/01/20 09:55 Ordered Height and Weight [RC] DAILY Care 05/31/20 12:47 Active Incentive Spirometry [RT Incentive Spirometry] [] Care 05/31/20 17:52 Active Q1HWA Intake and Output Strict [RC] Q12H Care 05/31/20 12:47 Active Telemetry Monitoring [Cardiac Monitoring] [RC] . Care 06/01/20 09:56 Active DIRECTED Full Liquid Diet [DIET] Diet 06/01/20 Lunch Active CBC WITH AUTO DIFF [HEME] AM Lab 06/02/20 05:11 Ordered COMPREHENSIVE METABOLIC PN,CMP [CHEM] AM Lab 06/02/20 05:11 Ordered HEPATITIS PANEL (4) [REF] Routine Lab 05/31/20 11:32 Received MAGNESIUM [CHEM] AM Lab 06/02/20 05:11 Ordered PHOSPHORUS [CHEM] AM Lab 06/02/20 05:11 Ordered Insulin Regular, Human [NovoLIN R] Med 06/01/20 06:00 Active See Protocol SUBCUT TID Lactated Ringers [Ringers, Lactated] 1,000 ml Med 05/31/20 23:00 Active IV ASDIRECTED Phosphorus #1 [Neutra-Phos] Med 06/01/20 12:00 Active 250 mg PO QID chlordiazePOXIDE [Librium] Med 06/01/20 09:00 Active 25 mg PO BID Medication Orders Chlordiazepoxide HCl (Librium) 25 mg PO BID [facility] Last Admin: 06/01/20 08:51 Dose: 25 mg Documented by: KEVYN Enoxaparin Sodium (Lovenox) 40 mg SUBCUT Q24H [facility] Last Admin: 05/31/20 15:18 Dose: Not Given Documented by: Admin: 05/30/20 15:40 Dose: Not Given Documented by: Admin: 05/29/20 15:52 Dose: 40 mg Documented by: CATHY Folic Acid (Folic Acid) 1 mg IV DAILY [facility] Last Admin: 06/01/20 08:21 Dose: 1 mg Documented by: Admin: 05/31/20 09:30 Dose: 1 mg Documented by: Admin: 05/30/20 08:43 Dose: 1 mg Documented by: TALI Pantoprazole Sodium 40 mg/ (Sodium Chloride) 10 mls @ 300 mls/hr IV DAILY [facility] Last Admin: 06/01/20 08:23 Dose: 300 mls/hr Documented by: Infusion: 05/31/20 09:27 Dose: 300 mls/hr Documented by: Admin: 05/31/20 09:25 Dose: 300 mls/hr Documented by: Infusion: 05/30/20 08:44 Dose: 300 mls/hr Documented by: Admin: 05/30/20 08:42 Dose: 300 mls/hr Documented by: Infusion: 05/29/20 08:09 Dose: 300 mls/hr Documented by: Admin: 05/29/20 08:07 Dose: 300 mls/hr Documented by: SWATI Thiamine HCl 100 mg/ Sodium (Chloride) 101 mls @ 202 mls/hr IV DAILY [facility] Last Admin: 06/01/20 10:39 Dose: 202 mls/hr Documented by: Infusion: 05/31/20 11:17 Dose: 202 mls/hr Documented by: Admin: 05/31/20 10:47 Dose: 202 mls/hr Documented by: Infusion: 05/30/20 09:51 Dose: 202 mls/hr Documented by: Admin: 05/30/20 09:21 Dose: 202 mls/hr Documented by: TALI Lactated Ringer's (Ringers, Lactated) 1,000 mls @ 100 mls/hr IV ASDIRECTED [facility] Last Admin: 06/01/20 08:52 Dose: 100 mls/hr Documented by: Infusion: 06/01/20 08:52 Dose: 100 mls/hr Documented by: Admin: 05/31/20 23:22 Dose: 100 mls/hr Documented by: CARLITA Insulin Human Regular (Novolin R) 0 unit SUBCUT TID [facility]; Protocol Last Admin: 06/01/20 05:30 Dose: Not Given Documented by: CARLITA Lorazepam (Ativan) 0 mg IVPUSH Q1H PRN; Protocol PRN Reason: Withdrawal Symptoms Last Admin: 05/31/20 22:50 Dose: 2 mg Documented by: Admin: 05/31/20 21:06 Dose: 1 mg Documented by: Admin: 05/29/20 23:29 Dose: 2 mg Documented by: Admin: 05/29/20 21:13 Dose: 2 mg Documented by: Admin: 05/29/20 19:53 Dose: 2 mg Documented by: Admin: 05/29/20 18:39 Dose: 1 mg Documented by: CATHY Morphine Sulfate (Morphine) 1 mg IVPUSH Q4H PRN PRN Reason: Pain Last Admin: 06/01/20 09:01 Dose: 1 mg Documented by: Admin: 06/01/20 03:55 Dose: 1 mg Documented by: Admin: 05/31/20 20:32 Dose: 1 mg Documented by: Admin: 05/31/20 16:29 Dose: 1 mg Documented by: Admin: 05/31/20 07:03 Dose: 1 mg Documented by: Admin: 05/31/20 00:50 Dose: 1 mg Documented by: Admin: 05/30/20 20:17 Dose: 1 mg Documented by: Admin: 05/30/20 13:55 Dose: 1 mg Documented by: TALI Ondansetron HCl (Zofran) 4 mg IVPUSH Q4H PRN PRN Reason: Nausea/Vomitting Last Admin: 05/29/20 07:10 Dose: 4 mg Documented by: PASTGEN Sodium Phosphate (Neutra-Phos) 250 mg PO QID [facility] - Assessment Assessment (Free Text/Narrative):: tbili continue to elevate, 9.0 to 9.8; wbc wnl; plt increased from 80 to 112; no BM; if pt tolerated tbili 9.8, suggested this is a chronic situation. no gallstones or cholecytitis, will sign off; recall if question; if discharged, fu w me 2 - 3 wks; thanks for the consult and care of this [place] pt. - Plan Plan (Free Text/Narrative):: tbili continue to elevate, 9.0 to 9.8; wbc wnl; plt increased from 80 to 112; no BM; if pt tolerated tbili 9.8, suggested this is a chronic situation. no gallstones or cholecytitis, will sign off; recall if question; if discharged, fu w me 2 - 3 wks; thanks for the consult and care of this [place] pt.
[2020-06-01] MEDS: Phosphorus #1 250 MG Tab PO SCH ×3 (12:41→23:31)
[2020-06-01] MEDS: Enoxaparin 40 MG/0.4 ML Syringe SUBCUT SCH (15:29)
[2020-06-01] MEDS: Insulin Aspart 100 Units/ML 3 ML Pen SUBCUT SCH (17:26)
[2020-06-01] MEDS ORDERED: Morphine 2 MG/ML SYRINGE IVPUSH ONE (18:10)
[2020-06-01] MEDS ORDERED: Insulin Aspart 100 Units/ML 3 ML Pen SUBCUT ONE (23:00)
[2020-06-02] MEDS: Morphine 2 MG/ML SYRINGE IVPUSH PRN ×5 (02:01→20:13)
[2020-06-02] MEDS: Phosphorus #1 250 MG Tab PO SCH ×4 (06:15→23:26)
[2020-06-02] MEDS: Lactated Ringers 1,000 ML IV SCH ×3 (06:17→18:21)
[2020-06-02 06:30] LABS: BLOOD UREA NITROGEN,BUN 6 mg/dL (7.0-18.0); CARBON DIOXIDE,CO2 22.5 mmol/L (21.0-32.0); CHLORIDE,CL 96 mmol/L (98-107); GLUCOSE RANDOM 250 mg/dL (74-106); POTASSIUM,K 4.1 mmol/L (3.5-5.1); SODIUM,NA 132 mmol/L (136-145)
[2020-06-02] MEDS: Insulin Aspart 100 Units/ML 3 ML Pen SUBCUT SCH ×3 (07:41→16:50)
[2020-06-02] MEDS: Folic Acid 1 MG Tab PO SCH (08:57)
[2020-06-02] MEDS: chlordiazePOXIDE 25 MG Cap PO SCH (08:57)
[2020-06-02] MEDS: Thiamine 100 MG in Sodium Chloride 0.9% 100 ML IV SCH (09:11)
[2020-06-02] MEDS: Pantoprazole 40 MG in Sodium Chloride 0.9% 10 ML IV SCH (09:11)
--- NOTE | 2020-06-02 13:20 | PCM.PN ---
- General Info Date of Service: 06/02/20 Admission Dx/Problem (Free Text): Admission Diagnosis/Problem Admission Diagnosis/Problem Pancreatitis Subjective Update: seen in her room, walking towards the sink, ambulating better, feels much better - Review of Systems General: Denies: Fever, Weakness, Fatigue Pulmonary: Denies: Shortness of Breath, Pleuritic Chest Pain Cardiovascular: Denies: Chest Pain, Palpitations, Dyspnea on Exertion Gastrointestinal: Reports: Abdominal Pain, Flatus. Denies: Constipation, Decreased Appetite, Diarrhea, Difficulty Swallowing, Nausea, Vomiting Genitourinary: Denies: Dysuria, Frequency, Burning Musculoskeletal: Denies: Neck Pain, Shoulder Pain, Arm Pain Skin: Denies: Cyanosis, Jaundice, Mottled - Patient Data Vitals - Most Recent: Last Vital Signs Temp 37.3 C 06/02/20 11:37 Pulse 101 H 06/02/20 11:37 Resp 18 06/02/20 11:37 BP 130/93 H 06/02/20 11:37 Pulse Ox 96 06/02/20 11:37 Weight - Most Recent: 72.892 kg I&O - Last 24 Hours: Intake & Output 06/01/20 06/02/20 06/02/20 22:59 06:59 14:59 Intake Total 860 1600 Output Total 1800 1550 Balance -940 50 Lab Results Last 24 Hours: Laboratory Results - last 24 hr 05/31/20 05/31/20 05/31/20 Range/Units 11:32 16:12 22:54 WBC (4.0-11.0) K/uL RBC (4.30-5.90) M/uL Hgb (12.0-16.0) g/dL Hct (36.0-46.0) % MCV (80.0-98.0) fL MCH (27.0-32.0) pg MCHC (31.0-37.0) g/dL RDW Std Deviation (28.0-62.0) fl RDW Coeff of Vanessa (11.0-15.0) % Plt Count (150-400) K/uL MPV (7.40-12.00) fL Neut % (Auto) (48.0-80.0) % Lymph % (Auto) (16.0-40.0) % Person % (Auto) (0.0-15.0) % Eos % (Auto) (0.0-7.0) % Baso % (Auto) (0.0-1.5) % Neut # (Auto) (1.4-5.7) K/uL Lymph # (Auto) (0.6-2.4) K/uL Person # (Auto) (0.0-0.8) K/uL Eos # (Auto) (0.0-0.7) K/uL Baso # (Auto) (0.0-0.1) K/uL Nucleated RBC % /100WBC Nucleated RBCs # K/uL Sodium (136-145) mmol/L Potassium (3.5-5.1) mmol/L Chloride (98-107) mmol/L Carbon Dioxide (21.0-32.0) mmol/L BUN (7.0-18.0) mg/dL Creatinine (0.6-1.0) mg/dL Est Cr Clr Drug Dosing mL/min Estimated GFR (MDRD) ml/min Glucose (74-106) mg/dL POC Glucose 201 H 304 H (60-110) mg/dL Calcium (8.5-10.1) mg/dL Phosphorus (2.6-4.7) mg/dL Magnesium (1.8-2.4) mg/dL Total Bilirubin (0.2-1.0) mg/dL AST (15-37) IU/L ALT (14-63) IU/L Alkaline Phosphatase (46-116) U/L Total Protein (6.4-8.2) g/dL Albumin (3.4-5.0) g/dL Globulin (2.6-4.0) g/dL Albumin/Globulin Ratio (0.9-1.6) Hepatitis A IgM Ab Negative (Negative) Hep Bs Antigen Negative (Negative) Hep B Core IgM Ab Negative (Negative) Hepatitis C Antibody <0.1 (0.0-0.9) s/co ratio 06/01/20 06/01/20 06/01/20 Range/Units 01:16 14:14 16:47 WBC (4.0-11.0) K/uL RBC (4.30-5.90) M/uL Hgb (12.0-16.0) g/dL Hct (36.0-46.0) % MCV (80.0-98.0) fL MCH (27.0-32.0) pg MCHC (31.0-37.0) g/dL RDW Std Deviation (28.0-62.0) fl RDW Coeff of Vanessa (11.0-15.0) % Plt Count (150-400) K/uL MPV (7.40-12.00) fL Neut % (Auto) (48.0-80.0) % Lymph % (Auto) (16.0-40.0) % Person % (Auto) (0.0-15.0) % Eos % (Auto) (0.0-7.0) % Baso % (Auto) (0.0-1.5) % Neut # (Auto) (1.4-5.7) K/uL Lymph # (Auto) (0.6-2.4) K/uL Person # (Auto) (0.0-0.8) K/uL Eos # (Auto) (0.0-0.7) K/uL Baso # (Auto) (0.0-0.1) K/uL Nucleated RBC % /100WBC Nucleated RBCs # K/uL Sodium (136-145) mmol/L Potassium (3.5-5.1) mmol/L Chloride (98-107) mmol/L Carbon Dioxide (21.0-32.0) mmol/L BUN (7.0-18.0) mg/dL Creatinine (0.6-1.0) mg/dL Est Cr Clr Drug Dosing mL/min Estimated GFR (MDRD) ml/min Glucose (74-106) mg/dL POC Glucose 110 268 H 291 H (60-110) mg/dL Calcium (8.5-10.1) mg/dL Phosphorus (2.6-4.7) mg/dL Magnesium (1.8-2.4) mg/dL Total Bilirubin (0.2-1.0) mg/dL AST (15-37) IU/L ALT (14-63) IU/L Alkaline Phosphatase (46-116) U/L Total Protein (6.4-8.2) g/dL Albumin (3.4-5.0) g/dL Globulin (2.6-4.0) g/dL Albumin/Globulin Ratio (0.9-1.6) Hepatitis A IgM Ab (Negative) Hep Bs Antigen (Negative) Hep B Core IgM Ab (Negative) Hepatitis C Antibody (0.0-0.9) s/co ratio 06/02/20 06/02/20 06/02/20 Range/Units 05:54 05:54 06:14 WBC 9.06 (4.0-11.0) K/uL RBC 3.48 L (4.30-5.90) M/uL Hgb 11.4 L (12.0-16.0) g/dL Hct 35.0 L (36.0-46.0) % MCV 100.6 H (80.0-98.0) fL MCH 32.8 H (27.0-32.0) pg MCHC 32.6 (31.0-37.0) g/dL RDW Std Deviation 49.5 (28.0-62.0) fl RDW Coeff of Vanessa 14 (11.0-15.0) % Plt Count 156 (150-400) K/uL MPV 10.40 (7.40-12.00) fL Neut % (Auto) 60.0 (48.0-80.0) % Lymph % (Auto) 19.6 (16.0-40.0) % Person % (Auto) 19.0 H (0.0-15.0) % Eos % (Auto) 1.0 (0.0-7.0) % Baso % (Auto) 0.4 (0.0-1.5) % Neut # (Auto) 5.4 (1.4-5.7) K/uL Lymph # (Auto) 1.8 (0.6-2.4) K/uL Person # (Auto) 1.7 H (0.0-0.8) K/uL Eos # (Auto) 0.1 (0.0-0.7) K/uL Baso # (Auto) 0.0 (0.0-0.1) K/uL Nucleated RBC % 0.0 /100WBC Nucleated RBCs # 0 K/uL Sodium 132 L (136-145) mmol/L Potassium 4.1 (3.5-5.1) mmol/L Chloride 96 L (98-107) mmol/L Carbon Dioxide 22.5 (21.0-32.0) mmol/L BUN 6 L (7.0-18.0) mg/dL Creatinine 0.6 (0.6-1.0) mg/dL Est Cr Clr Drug Dosing 125.61 mL/min Estimated GFR (MDRD) > 60.0 ml/min Glucose 250 H (74-106) mg/dL POC Glucose 242 H (60-110) mg/dL Calcium 8.2 L (8.5-10.1) mg/dL Phosphorus 3.7 (2.6-4.7) mg/dL Magnesium 2.3 (1.8-2.4) mg/dL Total Bilirubin 6.2 H (0.2-1.0) mg/dL AST 82 H (15-37) IU/L ALT 89 H (14-63) IU/L Alkaline Phosphatase 110 (46-116) U/L Total Protein 5.9 L (6.4-8.2) g/dL Albumin 2.7 L (3.4-5.0) g/dL Globulin 3.2 (2.6-4.0) g/dL Albumin/Globulin Ratio 0.8 L (0.9-1.6) Hepatitis A IgM Ab (Negative) Hep Bs Antigen (Negative) Hep B Core IgM Ab (Negative) Hepatitis C Antibody (0.0-0.9) s/co ratio 07/16/20 Range/Units 11:33 WBC (4.0-11.0) K/uL RBC (4.30-5.90) M/uL Hgb (12.0-16.0) g/dL Hct (36.0-46.0) % MCV (80.0-98.0) fL MCH (27.0-32.0) pg MCHC (31.0-37.0) g/dL RDW Std Deviation (28.0-62.0) fl RDW Coeff of Vanessa (11.0-15.0) % Plt Count (150-400) K/uL MPV (7.40-12.00) fL Neut % (Auto) (48.0-80.0) % Lymph % (Auto) (16.0-40.0) % Person % (Auto) (0.0-15.0) % Eos % (Auto) (0.0-7.0) % Baso % (Auto) (0.0-1.5) % Neut # (Auto) (1.4-5.7) K/uL Lymph # (Auto) (0.6-2.4) K/uL Person # (Auto) (0.0-0.8) K/uL Eos # (Auto) (0.0-0.7) K/uL Baso # (Auto) (0.0-0.1) K/uL Nucleated RBC % /100WBC Nucleated RBCs # K/uL Sodium (136-145) mmol/L Potassium (3.5-5.1) mmol/L Chloride (98-107) mmol/L Carbon Dioxide (21.0-32.0) mmol/L BUN (7.0-18.0) mg/dL Creatinine (0.6-1.0) mg/dL Est Cr Clr Drug Dosing mL/min Estimated GFR (MDRD) ml/min Glucose (74-106) mg/dL POC Glucose 329 H (60-110) mg/dL Calcium (8.5-10.1) mg/dL Phosphorus (2.6-4.7) mg/dL Magnesium (1.8-2.4) mg/dL Total Bilirubin (0.2-1.0) mg/dL AST (15-37) IU/L ALT (14-63) IU/L Alkaline Phosphatase (46-116) U/L Total Protein (6.4-8.2) g/dL Albumin (3.4-5.0) g/dL Globulin (2.6-4.0) g/dL Albumin/Globulin Ratio (0.9-1.6) Hepatitis A IgM Ab (Negative) Hep Bs Antigen (Negative) Hep B Core IgM Ab (Negative) Hepatitis C Antibody (0.0-0.9) s/co ratio [place] Results Last 24 Hours: Microbiology 05/29/20 13:13 Aerobic Blood Culture - Preliminary Blood - Venous - Lab Draw NO GROWTH AFTER 4 DAYS Anaerobic Blood Culture - Preliminary NO GROWTH AFTER 4 DAYS 05/29/20 12:46 Aerobic Blood Culture - Preliminary Blood - Venous NO GROWTH AFTER 4 DAYS Anaerobic Blood Culture - Preliminary NO GROWTH AFTER 4 DAYS Med Orders - Current: Current Medications Chlordiazepoxide HCl (Librium) 10 mg PO BID [facility] Enoxaparin Sodium (Lovenox) 40 mg SUBCUT Q24H [facility] Last Admin: 06/01/20 15:29 Dose: 40 mg Documented by: Folic Acid (Folic Acid) 1 mg PO DAILY [facility] Last Admin: 06/02/20 08:57 Dose: 1 mg Documented by: Pantoprazole Sodium 40 mg/ (Sodium Chloride) 10 mls @ 300 mls/hr IV DAILY [facility] Last Admin: 06/02/20 09:11 Dose: 300 mls/hr Documented by: Thiamine HCl 100 mg/ Sodium (Chloride) 101 mls @ 202 mls/hr IV DAILY [facility] Last Admin: 06/02/20 09:11 Dose: 202 mls/hr Documented by: Lactated Ringer's (Ringers, Lactated) 1,000 mls @ 75 mls/hr IV ASDIRECTED [facility] Last Admin: 06/02/20 12:02 Dose: 75 mls/hr Documented by: Insulin Aspart (Novolog) 0 unit SUBCUT TIDAC [facility]; Protocol Last Admin: 06/02/20 12:09 Dose: 4 unit Documented by: Lorazepam (Ativan) 0 mg IVPUSH Q1H PRN; Protocol PRN Reason: Withdrawal Symptoms Last Admin: 05/31/20 22:50 Dose: 2 mg Documented by: Morphine Sulfate (Morphine) 1 mg IVPUSH Q4H PRN PRN Reason: Pain Last Admin: 06/02/20 12:01 Dose: 1 mg Documented by: Ondansetron HCl (Zofran) 4 mg IVPUSH Q4H PRN PRN Reason: Nausea/Vomitting Last Admin: 05/29/20 07:10 Dose: 4 mg Documented by: Sodium Phosphate (Neutra-Phos) 250 mg PO QID [facility] Last Admin: 06/02/20 11:35 Dose: 250 mg Documented by: Discontinued Medications Chlordiazepoxide HCl (Librium) 25 mg PO BID [facility] Last Admin: 05/29/20 20:07 Dose: 25 mg Documented by: Chlordiazepoxide HCl (Librium) 25 mg PO ONETIME ONE Stop: 05/29/20 18:20 Last Admin: 05/29/20 18:38 Dose: 25 mg Documented by: Chlordiazepoxide HCl (Librium) 50 mg PO BID [facility] Last Admin: 05/31/20 20:29 Dose: 50 mg Documented by: Chlordiazepoxide HCl (Librium) 25 mg PO BID [facility] Last Admin: 06/02/20 08:57 Dose: 25 mg Documented by: Folic Acid (Folic Acid) 1 mg IV DAILY [facility] Last Admin: 06/01/20 08:21 Dose: 1 mg Documented by: Hydromorphone HCl (Dilaudid) 1 mg IVPUSH ONETIME ONE Stop: 05/28/20 22:00 Last Admin: 05/28/20 22:20 Dose: 1 mg Documented by: Hydromorphone HCl (Dilaudid) 1 mg IVPUSH ONETIME ONE Stop: 05/28/20 23:44 Last Admin: 05/29/20 00:04 Dose: 1 mg Documented by: Lactated Ringer's (Ringers, Lactated) 1,000 mls @ 999 mls/hr IV .BOLUS ONE Stop: 05/28/20 22:59 Last Admin: 05/28/20 22:19 Dose: 999 mls/hr Documented by: Lactated Ringer's (Ringers, Lactated) 1,000 mls @ 125 mls/hr IV ASDIRECTED [facility] Last Admin: 05/29/20 00:00 Dose: 125 mls/hr Documented by: Lactated Ringer's (Ringers, Lactated) 1,000 mls @ 200 mls/hr IV ASDIRECTED [facility] Last Infusion: 05/31/20 15:10 Dose: 125 mls/hr Documented by: Lactated Ringer's (Ringers, Lactated) 1,000 mls @ 999 mls/hr IV ONETIME ONE Stop: 05/29/20 10:26 Last Admin: 05/29/20 09:33 Dose: 999 mls/hr Documented by: Piperacillin Sod/Tazobactam (Sod 3.375 gm/ Sodium Chloride) 100 mls @ 200 mls/hr IV Q8H [facility] Last Admin: 05/31/20 03:07 Dose: 200 mls/hr Documented by: Magnesium Sulfate 2 gm/ Premix 50 mls @ 50 mls/hr IV ONETIME ONE Stop: 05/29/20 11:17 Last Admin: 05/29/20 11:15 Dose: 50 mls/hr Documented by: Multivitamins/Minerals 10 ml/Thiamine HCl 100 mg/ Folic Acid 1 mg/ Sodium Chloride 1,011.2 mls @ 200 mls/hr IV ONETIME ONE Stop: 05/29/20 15:21 Last Admin: 05/29/20 13:18 Dose: Not Given Documented by: Multivitamins/Minerals 10 ml/Thiamine HCl 100 mg/ Folic Acid 1 mg/ Sodium Chloride 1,011.2 mls @ 200 mls/hr IV ONETIME ONE Stop: 05/29/20 17:18 Last Admin: 05/29/20 13:13 Dose: 200 mls/hr Documented by: Lactated Ringer's (Ringers, Lactated) 1,000 mls @ 999 mls/hr IV ONETIME ONE Stop: 05/29/20 13:26 Last Admin: 05/29/20 13:10 Dose: 999 mls/hr Documented by: Vancomycin HCl 1.5 gm/ Premix 300 mls @ 200 mls/hr IV ONETIME ONE Stop: 05/29/20 14:34 Last Admin: 05/29/20 14:30 Dose: 200 mls/hr Documented by: Lactated Ringer's (Ringers, Lactated) 1,000 mls @ 999 mls/hr IV .BOLUS ONE Stop: 05/29/20 14:08 Last Admin: 05/29/20 14:13 Dose: 999 mls/hr Documented by: Vancomycin HCl 1 gm/ Sodium (Chloride) 250 mls @ 166.667 mls/hr IV Q12H [facility] Last Admin: 05/30/20 01:12 Dose: 166.667 mls/hr Documented by: Lactated Ringer's (Ringers, Lactated) 1,000 mls @ 500 mls/hr IV .BOLUS ONE Stop: 05/29/20 19:37 Last Admin: 05/29/20 18:26 Dose: 500 mls/hr Documented by: Multivitamins/Minerals 10 ml/Thiamine HCl 100 mg/ Folic Acid 1 mg/ Sodium Chloride 1,011.2 mls @ 500 mls/hr IV ONETIME ONE Stop: 05/29/20 22:50 Last Infusion: 05/29/20 23:09 Dose: 999 mls/hr Documented by: Sodium Chloride (Normal Saline (Advbag)) Confirm Administered Dose 250 mls @ as directed .ROUTE .STK-MED ONE Stop: 05/30/20 00:25 Last Admin: 05/30/20 01:08 Dose: Not Given Documented by: Lactated Ringer's (Ringers, Lactated) 1,000 mls @ 999 mls/hr IV .BOLUS ONE Stop: 05/30/20 09:05 Last Admin: 05/30/20 08:15 Dose: 999 mls/hr Documented by: Magnesium Sulfate 4 gm/Potassium Phosphate 20 mmole/Sodium Chloride 1,014.6667 mls @ 150 mls/hr IV ONETIME ONE Stop: 05/30/20 15:15 Last Admin: 05/30/20 08:44 Dose: 150 mls/hr Documented by: Piperacillin Sod/Tazobactam (Sod 3.375 gm/ Sodium Chloride) 100 mls @ 200 mls/hr IV Q6H [facility] Last Admin: 05/31/20 09:55 Dose: 200 mls/hr Documented by: Potassium Phosphate 30 mmole/ (Sodium Chloride) 1,010 mls @ 125 mls/hr IV ONETIME ONE Stop: 05/31/20 16:11 Last Infusion: 05/31/20 14:15 Dose: 125 mls/hr Documented by: Lactated Ringer's (Ringers, Lactated) 1,000 mls @ 125 mls/hr IV Q8H [facility] Last Infusion: 05/31/20 22:48 Dose: Infused Documented by: Lactated Ringer's (Ringers, Lactated) 1,000 mls @ 100 mls/hr IV ASDIRECTED [facility] Last Admin: 06/02/20 06:17 Dose: 100 mls/hr Documented by: Insulin Aspart (Novolog) 7 unit SUBCUT ONETIME ONE Stop: 06/01/20 23:01 Insulin Aspart (Novolog) 7 unit SUBCUT ONETIME ONE Stop: 05/31/20 23:13 Last Admin: 05/31/20 23:22 Dose: 7 units Documented by: Insulin Human Regular (Novolin R) 0 unit SUBCUT BIDAC [facility]; Protocol Insulin Human Regular (Novolin R) 0 unit SUBCUT TID [facility]; Protocol Last Admin: 06/01/20 14:43 Dose: Not Given Documented by: Insulin Human Regular (Novolin R) 0 unit SUBCUT TIDAC [facility]; Protocol Last Admin: 06/01/20 17:25 Dose: Not Given Documented by: Lorazepam (Ativan) 2 mg IVPUSH ONETIME ONE Stop: 05/28/20 23:44 Last Admin: 05/29/20 00:01 Dose: 2 mg Documented by: Lorazepam (Ativan) 0 mg IVPUSH Q4H PRN; Protocol PRN Reason: Withdrawal Symptoms Last Admin: 05/29/20 08:10 Dose: 2 mg Documented by: Lorazepam (Ativan) Confirm Administered Dose 2 mg .ROUTE .STK-MED ONE Stop: 05/29/20 17:30 Last Admin: 05/29/20 17:43 Dose: 2 mg Documented by: Morphine Sulfate (Morphine) 2 mg IVPUSH Q4H PRN PRN Reason: Pain Last Admin: 05/29/20 11:06 Dose: 2 mg Documented by: Morphine Sulfate (Morphine) 1 mg IVPUSH ONETIME ONE Stop: 06/01/20 18:11 Last Admin: 06/01/20 18:26 Dose: 1 mg Documented by: Vancomycin HCl (Pharmacy To Dose - Vancomycin) 1 dose .XX ASDIRECTED [facility] Vancomycin HCl (Vancocin) Confirm Administered Dose 1 gm .ROUTE .STK-MED ONE Stop: 05/30/20 00:24 Last Admin: 05/30/20 01:08 Dose: Not Given Documented by: - Exam General: Alert, Oriented, Cooperative Lungs: Clear to Auscultation, Normal Respiratory Effort Cardiovascular: Regular Rate, Regular Rhythm GI/Abdominal Exam: Normal Bowel Sounds, Soft, Distended, Tender, Hepatomegaly. No: No Distention Skin: Intact Neurological: No New Focal Deficit, Normal Tone, Strength Equal Bilateral Psy/Mental Status: Alert, Normal Affect, Normal Mood Sepsis Event Note - Evaluation Sepsis Screening Result: No Definite Risk - Focused Exam Vital Signs: Vital Signs Temp Pulse Resp BP Pulse Ox 06/02/20 11:37 37.3 C 101 H 18 130/93 H 96 06/02/20 07:08 37.9 C 96 18 129/89 93 L 06/02/20 04:00 36.6 C 92 18 126/90 94 L Date Exam was Performed: 06/02/20 Time Exam was Performed: 13:35 - Problem List & Annotations (1) Alcohol abuse SNOMED Code(s): 84482818 Code(s): F10.10 - ALCOHOL ABUSE, UNCOMPLICATED Status: Acute Current Visit: Yes (2) Alcohol withdrawal SNOMED Code(s): 242211414 Code(s): F10.239 - ALCOHOL DEPENDENCE WITH WITHDRAWAL, UNSPECIFIED Status: Acute Current Visit: Yes (3) Pancreatitis SNOMED Code(s): 85495205 Code(s): K85.90 - ACUTE PANCREATITIS WITHOUT NECROSIS OR INFECTION, UNSP Status: Acute Current Visit: Yes (4) Leucocytosis SNOMED Code(s): 612014447, 943096909 Code(s): D72.829 - ELEVATED WHITE BLOOD CELL COUNT, UNSPECIFIED Status: Acute Current Visit: Yes (5) Alcoholic hepatitis SNOMED Code(s): 207436824 Code(s): K70.10 - ALCOHOLIC HEPATITIS WITHOUT ASCITES Status: Acute Current Visit: Yes Qualifiers: Ascites presence: without ascites Qualified Code(s): K70.10 - Alcoholic hepatitis without ascites (6) Hyperbilirubinemia SNOMED Code(s): 87585072 Code(s): E80.6 - OTHER DISORDERS OF BILIRUBIN METABOLISM Status: Acute Current Visit: Yes - Problem List Review Problem List Initiated/Reviewed/Updated: Yes - My Orders Last 24 Hours: My Active Orders 06/01/20 17:30 Insulin Aspart [NovoLOG] See Protocol SUBCUT TIDAC 06/02/20 09:00 Folic Acid 1 mg PO DAILY 06/02/20 12:00 Lactated Ringers [Ringers, Lactated] 1,000 ml IV ASDIRECTED 06/02/20 Dinner Full Liquid Diet [DIET] 06/02/20 21:00 chlordiazePOXIDE [Librium] 10 mg PO BID - Plan Plan:: 30 y/o F admitted for acute alcoholic pancreatitis 1. Acute alcoholic pancreatitis - improving - decrease fluids to LR 70 mls/hr - Continue Protonix daily IV - Monitor electrolytes and replace as needed - MRCP ruled out stone -Advance diet to full liquid 2. Alcohol withdrawal - Continue CIWAA protocol with Ativan - cont. tapering Librium, now 10 mg BID - Thiamine and folic acid daily - HIGH FALL RISK due to alcohol withdrawal - Monitor closely 3. Alcoholic hepatitis: - Bilirubin improving, continue to monitor - Hepatitis panel pending - INR 1.1 - Hepatomegaly noted with severe fatty infiltration noted on imaging. - Spoke with Dr Francis, GI specialist. Agreed with Alcoholic hepatitis no need for transfer, continue current course of treatment. 4. Hyperglycemia - Novolog SSI TID - A1c 5.1 5. Electrolyte abnormalities - Replace phosphorus today PO, recheck in am VTE prophylaxis: Lovenox GI prophylaxis: Protonix Dispo: 2-3 days pending improvement, transfer to med/surg with telemetry. Arranging care for outpatient rehab, as patient and family do not have the means for inpatient rehabilitation.
[2020-06-02] MEDS: Enoxaparin 40 MG/0.4 ML Syringe SUBCUT SCH (16:06)
[2020-06-02] MEDS: chlordiazePOXIDE 10 MG Cap PO SCH (20:43)
[2020-06-03] MEDS: Morphine 2 MG/ML SYRINGE IVPUSH PRN ×4 (01:56→21:38)
[2020-06-03] MEDS: Phosphorus #1 250 MG Tab PO SCH ×4 (06:22→23:18)
[2020-06-03 06:33] LABS: BLOOD UREA NITROGEN,BUN 6 mg/dL (7.0-18.0); CARBON DIOXIDE,CO2 22.7 mmol/L (21.0-32.0); CHLORIDE,CL 97 mmol/L (98-107); GLUCOSE RANDOM 256 mg/dL (74-106); POTASSIUM,K 3.7 mmol/L (3.5-5.1); SODIUM,NA 132 mmol/L (136-145)
[2020-06-03] MEDS: Lactated Ringers 1,000 ML IV SCH ×2 (07:32→20:37)
[2020-06-03] MEDS: Folic Acid 1 MG Tab PO SCH (08:29)
[2020-06-03] MEDS: chlordiazePOXIDE 10 MG Cap PO SCH (08:30)
[2020-06-03] MEDS: Pantoprazole 40 MG in Sodium Chloride 0.9% 10 ML IV SCH (08:30)
[2020-06-03] MEDS: Insulin Aspart 100 Units/ML 3 ML Pen SUBCUT SCH ×3 (08:40→17:55)
[2020-06-03] MEDS: Thiamine 100 MG in Sodium Chloride 0.9% 100 ML IV SCH (09:52)
--- NOTE | 2020-06-03 11:39 | PCM.PN ---
- General Info Date of Service: 06/03/20 Admission Dx/Problem (Free Text): Admission Diagnosis/Problem Admission Diagnosis/Problem Pancreatitis Subjective Update: seen in her room, at bedside, feels much better, continues to have some abdominal discomfort Functional Status: Reports: Tolerating Diet, Ambulating, Urinating - Review of Systems General: Denies: Fever, Weakness, Fatigue Pulmonary: Denies: Shortness of Breath, Pleuritic Chest Pain Cardiovascular: Denies: Chest Pain, Palpitations, Dyspnea on Exertion Gastrointestinal: Denies: Abdominal Pain, Constipation, Decreased Appetite Genitourinary: Denies: Dysuria, Frequency, Burning Musculoskeletal: Denies: Neck Pain, Shoulder Pain, Arm Pain Skin: Denies: Cyanosis, Jaundice - Patient Data Vitals - Most Recent: Last Vital Signs Temp 37.3 C 06/03/20 09:09 Pulse 90 06/03/20 09:09 Resp 16 06/03/20 09:09 BP 126/83 06/03/20 09:09 Pulse Ox 94 L 06/03/20 09:09 Weight - Most Recent: 71.169 kg I&O - Last 24 Hours: Intake & Output 06/02/20 06/03/20 06/03/20 22:59 06:59 14:59 Intake Total 1800 2058 Output Total 2300 1800 Balance -500 258 Lab Results Last 24 Hours: Laboratory Results - last 24 hr 06/02/20 06/02/20 06/03/20 Range/Units 11:33 16:48 05:43 WBC 8.14 (4.0-11.0) K/uL RBC 3.38 L (4.30-5.90) M/uL Hgb 11.2 L (12.0-16.0) g/dL Hct 33.8 L (36.0-46.0) % MCV 100.0 H (80.0-98.0) fL MCH 33.1 H (27.0-32.0) pg MCHC 33.1 (31.0-37.0) g/dL RDW Std Deviation 48.9 (28.0-62.0) fl RDW Coeff of Vanessa 14 (11.0-15.0) % Plt Count 198 (150-400) K/uL MPV 10.60 (7.40-12.00) fL Add Manual Diff YES Neutrophils % (Manual) 51 (48.0-80.0) % Band Neutrophils % 13 % Lymphocytes % (Manual) 25 (16.0-40.0) % Monocytes % (Manual) 7 (0.0-15.0) % Eosinophils % (Manual) 1 (0.0-7.0) % Metamyelocytes % 3 % Nucleated RBC % 0.0 /100WBC Absolute Seg Neuts 4.2 (1.4-5.7) Band Neutrophils # 1.1 Lymphocytes # (Manual) 2.0 (0.6-2.4) Monocytes # (Manual) 0.6 (0.0-0.8) Eosinophils # (Manual) 0.1 (0.0-0.7) Absolute Metamyelocyte 0.2 Nucleated RBCs # 0 K/uL Sodium (136-145) mmol/L Potassium (3.5-5.1) mmol/L Chloride (98-107) mmol/L Carbon Dioxide (21.0-32.0) mmol/L BUN (7.0-18.0) mg/dL Creatinine (0.6-1.0) mg/dL Est Cr Clr Drug Dosing mL/min Estimated GFR (MDRD) ml/min Glucose (74-106) mg/dL POC Glucose 329 H 303 H (60-110) mg/dL Calcium (8.5-10.1) mg/dL Phosphorus (2.6-4.7) mg/dL Magnesium (1.8-2.4) mg/dL Total Bilirubin (0.2-1.0) mg/dL AST (15-37) IU/L ALT (14-63) IU/L Alkaline Phosphatase (46-116) U/L Total Protein (6.4-8.2) g/dL Albumin (3.4-5.0) g/dL Globulin (2.6-4.0) g/dL Albumin/Globulin Ratio (0.9-1.6) 06/03/20 06/03/20 Range/Units 05:43 06:24 WBC (4.0-11.0) K/uL RBC (4.30-5.90) M/uL Hgb (12.0-16.0) g/dL Hct (36.0-46.0) % MCV (80.0-98.0) fL MCH (27.0-32.0) pg MCHC (31.0-37.0) g/dL RDW Std Deviation (28.0-62.0) fl RDW Coeff of Vanessa (11.0-15.0) % Plt Count (150-400) K/uL MPV (7.40-12.00) fL Add Manual Diff Neutrophils % (Manual) (48.0-80.0) % Band Neutrophils % % Lymphocytes % (Manual) (16.0-40.0) % Monocytes % (Manual) (0.0-15.0) % Eosinophils % (Manual) (0.0-7.0) % Metamyelocytes % % Nucleated RBC % /100WBC Absolute Seg Neuts (1.4-5.7) Band Neutrophils # Lymphocytes # (Manual) (0.6-2.4) Monocytes # (Manual) (0.0-0.8) Eosinophils # (Manual) (0.0-0.7) Absolute Metamyelocyte Nucleated RBCs # K/uL Sodium 132 L (136-145) mmol/L Potassium 3.7 (3.5-5.1) mmol/L Chloride 97 L (98-107) mmol/L Carbon Dioxide 22.7 (21.0-32.0) mmol/L BUN 6 L (7.0-18.0) mg/dL Creatinine 0.6 (0.6-1.0) mg/dL Est Cr Clr Drug Dosing 125.61 mL/min Estimated GFR (MDRD) > 60.0 ml/min Glucose 256 H (74-106) mg/dL POC Glucose 257 H (60-110) mg/dL Calcium 8.3 L (8.5-10.1) mg/dL Phosphorus 4.0 (2.6-4.7) mg/dL Magnesium 2.2 (1.8-2.4) mg/dL Total Bilirubin 3.9 H (0.2-1.0) mg/dL AST 47 H (15-37) IU/L ALT 69 H (14-63) IU/L Alkaline Phosphatase 100 (46-116) U/L Total Protein 6.2 L (6.4-8.2) g/dL Albumin 2.6 L (3.4-5.0) g/dL Globulin 3.6 (2.6-4.0) g/dL Albumin/Globulin Ratio 0.7 L (0.9-1.6) [place] Results Last 24 Hours: Microbiology 05/29/20 13:13 Aerobic Blood Culture - Preliminary Blood - Venous - Lab Draw NO GROWTH AFTER 4 DAYS Anaerobic Blood Culture - Preliminary NO GROWTH AFTER 4 DAYS 05/29/20 12:46 Aerobic Blood Culture - Preliminary Blood - Venous NO GROWTH AFTER 4 DAYS Anaerobic Blood Culture - Preliminary NO GROWTH AFTER 4 DAYS Med Orders - Current: Current Medications Chlordiazepoxide HCl (Librium) 5 mg PO BID [facility] Enoxaparin Sodium (Lovenox) 40 mg SUBCUT Q24H [facility] Last Admin: 06/02/20 16:06 Dose: 40 mg Documented by: Folic Acid (Folic Acid) 1 mg PO DAILY [facility] Last Admin: 06/03/20 08:29 Dose: 1 mg Documented by: Pantoprazole Sodium 40 mg/ (Sodium Chloride) 10 mls @ 300 mls/hr IV DAILY [facility] Last Admin: 06/03/20 08:30 Dose: 300 mls/hr Documented by: Thiamine HCl 100 mg/ Sodium (Chloride) 101 mls @ 202 mls/hr IV DAILY [facility] Last Admin: 06/03/20 09:52 Dose: 202 mls/hr Documented by: Lactated Ringer's (Ringers, Lactated) 1,000 mls @ 75 mls/hr IV ASDIRECTED [facility] Last Admin: 06/03/20 07:32 Dose: 75 mls/hr Documented by: Insulin Aspart (Novolog) 0 unit SUBCUT TIDAC [facility]; Protocol Last Admin: 06/03/20 08:40 Dose: 6 unit Documented by: Lorazepam (Ativan) 0 mg IVPUSH Q1H PRN; Protocol PRN Reason: Withdrawal Symptoms Last Admin: 05/31/20 22:50 Dose: 2 mg Documented by: Morphine Sulfate (Morphine) 1 mg IVPUSH Q6H PRN PRN Reason: Pain Ondansetron HCl (Zofran) 4 mg IVPUSH Q4H PRN PRN Reason: Nausea/Vomitting Last Admin: 05/29/20 07:10 Dose: 4 mg Documented by: Sodium Phosphate (Neutra-Phos) 250 mg PO QID [facility] Last Admin: 06/03/20 06:22 Dose: 250 mg Documented by: Discontinued Medications Chlordiazepoxide HCl (Librium) 25 mg PO BID [facility] Last Admin: 05/29/20 20:07 Dose: 25 mg Documented by: Chlordiazepoxide HCl (Librium) 25 mg PO ONETIME ONE Stop: 05/29/20 18:20 Last Admin: 05/29/20 18:38 Dose: 25 mg Documented by: Chlordiazepoxide HCl (Librium) 50 mg PO BID [facility] Last Admin: 05/31/20 20:29 Dose: 50 mg Documented by: Chlordiazepoxide HCl (Librium) 25 mg PO BID [facility] Last Admin: 06/02/20 08:57 Dose: 25 mg Documented by: Chlordiazepoxide HCl (Librium) 10 mg PO BID [facility] Last Admin: 06/03/20 08:30 Dose: 10 mg Documented by: Folic Acid (Folic Acid) 1 mg IV DAILY [facility] Last Admin: 06/01/20 08:21 Dose: 1 mg Documented by: Hydromorphone HCl (Dilaudid) 1 mg IVPUSH ONETIME ONE Stop: 05/28/20 22:00 Last Admin: 05/28/20 22:20 Dose: 1 mg Documented by: Hydromorphone HCl (Dilaudid) 1 mg IVPUSH ONETIME ONE Stop: 05/28/20 23:44 Last Admin: 05/29/20 00:04 Dose: 1 mg Documented by: Lactated Ringer's (Ringers, Lactated) 1,000 mls @ 999 mls/hr IV .BOLUS ONE Stop: 05/28/20 22:59 Last Admin: 05/28/20 22:19 Dose: 999 mls/hr Documented by: Lactated Ringer's (Ringers, Lactated) 1,000 mls @ 125 mls/hr IV ASDIRECTED [facility] Last Admin: 05/29/20 00:00 Dose: 125 mls/hr Documented by: Lactated Ringer's (Ringers, Lactated) 1,000 mls @ 200 mls/hr IV ASDIRECTED [facility] Last Infusion: 05/31/20 15:10 Dose: 125 mls/hr Documented by: Lactated Ringer's (Ringers, Lactated) 1,000 mls @ 999 mls/hr IV ONETIME ONE Stop: 05/29/20 10:26 Last Admin: 05/29/20 09:33 Dose: 999 mls/hr Documented by: Piperacillin Sod/Tazobactam (Sod 3.375 gm/ Sodium Chloride) 100 mls @ 200 mls/hr IV Q8H [facility] Last Admin: 05/31/20 03:07 Dose: 200 mls/hr Documented by: Magnesium Sulfate 2 gm/ Premix 50 mls @ 50 mls/hr IV ONETIME ONE Stop: 05/29/20 11:17 Last Admin: 05/29/20 11:15 Dose: 50 mls/hr Documented by: Multivitamins/Minerals 10 ml/Thiamine HCl 100 mg/ Folic Acid 1 mg/ Sodium Chloride 1,011.2 mls @ 200 mls/hr IV ONETIME ONE Stop: 05/29/20 15:21 Last Admin: 05/29/20 13:18 Dose: Not Given Documented by: Multivitamins/Minerals 10 ml/Thiamine HCl 100 mg/ Folic Acid 1 mg/ Sodium Chloride 1,011.2 mls @ 200 mls/hr IV ONETIME ONE Stop: 05/29/20 17:18 Last Admin: 05/29/20 13:13 Dose: 200 mls/hr Documented by: Lactated Ringer's (Ringers, Lactated) 1,000 mls @ 999 mls/hr IV ONETIME ONE Stop: 05/29/20 13:26 Last Admin: 05/29/20 13:10 Dose: 999 mls/hr Documented by: Vancomycin HCl 1.5 gm/ Premix 300 mls @ 200 mls/hr IV ONETIME ONE Stop: 05/29/20 14:34 Last Admin: 05/29/20 14:30 Dose: 200 mls/hr Documented by: Lactated Ringer's (Ringers, Lactated) 1,000 mls @ 999 mls/hr IV .BOLUS ONE Stop: 05/29/20 14:08 Last Admin: 05/29/20 14:13 Dose: 999 mls/hr Documented by: Vancomycin HCl 1 gm/ Sodium (Chloride) 250 mls @ 166.667 mls/hr IV Q12H [facility] Last Admin: 05/30/20 01:12 Dose: 166.667 mls/hr Documented by: Lactated Ringer's (Ringers, Lactated) 1,000 mls @ 500 mls/hr IV .BOLUS ONE Stop: 05/29/20 19:37 Last Admin: 05/29/20 18:26 Dose: 500 mls/hr Documented by: Multivitamins/Minerals 10 ml/Thiamine HCl 100 mg/ Folic Acid 1 mg/ Sodium Chloride 1,011.2 mls @ 500 mls/hr IV ONETIME ONE Stop: 05/29/20 22:50 Last Infusion: 05/29/20 23:09 Dose: 999 mls/hr Documented by: Sodium Chloride (Normal Saline (Advbag)) Confirm Administered Dose 250 mls @ as directed .ROUTE .STK-MED ONE Stop: 05/30/20 00:25 Last Admin: 05/30/20 01:08 Dose: Not Given Documented by: Lactated Ringer's (Ringers, Lactated) 1,000 mls @ 999 mls/hr IV .BOLUS ONE Stop: 05/30/20 09:05 Last Admin: 05/30/20 08:15 Dose: 999 mls/hr Documented by: Magnesium Sulfate 4 gm/Potassium Phosphate 20 mmole/Sodium Chloride 1,014.6667 mls @ 150 mls/hr IV ONETIME ONE Stop: 05/30/20 15:15 Last Admin: 05/30/20 08:44 Dose: 150 mls/hr Documented by: Piperacillin Sod/Tazobactam (Sod 3.375 gm/ Sodium Chloride) 100 mls @ 200 mls/hr IV Q6H [facility] Last Admin: 05/31/20 09:55 Dose: 200 mls/hr Documented by: Potassium Phosphate 30 mmole/ (Sodium Chloride) 1,010 mls @ 125 mls/hr IV ONETIME ONE Stop: 05/31/20 16:11 Last Infusion: 05/31/20 14:15 Dose: 125 mls/hr Documented by: Lactated Ringer's (Ringers, Lactated) 1,000 mls @ 125 mls/hr IV Q8H [facility] Last Infusion: 05/31/20 22:48 Dose: Infused Documented by: Lactated Ringer's (Ringers, Lactated) 1,000 mls @ 100 mls/hr IV ASDIRECTED [facility] Last Admin: 06/02/20 06:17 Dose: 100 mls/hr Documented by: Insulin Aspart (Novolog) 7 unit SUBCUT ONETIME ONE Stop: 06/01/20 23:01 Insulin Aspart (Novolog) 7 unit SUBCUT ONETIME ONE Stop: 05/31/20 23:13 Last Admin: 05/31/20 23:22 Dose: 7 units Documented by: Insulin Human Regular (Novolin R) 0 unit SUBCUT BIDAC [facility]; Protocol Insulin Human Regular (Novolin R) 0 unit SUBCUT TID [facility]; Protocol Last Admin: 06/01/20 14:43 Dose: Not Given Documented by: Insulin Human Regular (Novolin R) 0 unit SUBCUT TIDAC [facility]; Protocol Last Admin: 06/01/20 17:25 Dose: Not Given Documented by: Lorazepam (Ativan) 2 mg IVPUSH ONETIME ONE Stop: 05/28/20 23:44 Last Admin: 05/29/20 00:01 Dose: 2 mg Documented by: Lorazepam (Ativan) 0 mg IVPUSH Q4H PRN; Protocol PRN Reason: Withdrawal Symptoms Last Admin: 05/29/20 08:10 Dose: 2 mg Documented by: Lorazepam (Ativan) Confirm Administered Dose 2 mg .ROUTE .STK-MED ONE Stop: 05/29/20 17:30 Last Admin: 05/29/20 17:43 Dose: 2 mg Documented by: Morphine Sulfate (Morphine) 2 mg IVPUSH Q4H PRN PRN Reason: Pain Last Admin: 05/29/20 11:06 Dose: 2 mg Documented by: Morphine Sulfate (Morphine) 1 mg IVPUSH Q4H PRN PRN Reason: Pain Last Admin: 06/03/20 07:31 Dose: 1 mg Documented by: Morphine Sulfate (Morphine) 1 mg IVPUSH ONETIME ONE Stop: 06/01/20 18:11 Last Admin: 06/01/20 18:26 Dose: 1 mg Documented by: Vancomycin HCl (Pharmacy To Dose - Vancomycin) 1 dose .XX ASDIRECTED [facility] Vancomycin HCl (Vancocin) Confirm Administered Dose 1 gm .ROUTE .STK-MED ONE Stop: 05/30/20 00:24 Last Admin: 05/30/20 01:08 Dose: Not Given Documented by: - Exam General: Alert, Oriented Neck: Supple Lungs: Clear to Auscultation, Normal Respiratory Effort Cardiovascular: Regular Rate, Regular Rhythm GI/Abdominal Exam: Normal Bowel Sounds, Soft, Distended, Tender Sepsis Event Note - Evaluation Sepsis Screening Result: No Definite Risk - Focused Exam Vital Signs: Vital Signs Temp Pulse Resp BP Pulse Ox 06/03/20 09:09 37.3 C 90 16 126/83 94 L 06/03/20 04:00 36.9 C 84 18 148/88 H 95 06/02/20 23:46 36.8 C 97 18 133/93 H 96 Date Exam was Performed: 06/05/20 Time Exam was Performed: 14:24 - Problem List & Annotations (1) Alcohol abuse SNOMED Code(s): 36484535 Code(s): F10.10 - ALCOHOL ABUSE, UNCOMPLICATED Status: Acute (2) Alcohol withdrawal SNOMED Code(s): 404029690 Code(s): F10.239 - ALCOHOL DEPENDENCE WITH WITHDRAWAL, UNSPECIFIED Status: Acute (3) Pancreatitis SNOMED Code(s): 52362267 Code(s): K85.90 - ACUTE PANCREATITIS WITHOUT NECROSIS OR INFECTION, UNSP Status: Acute (4) Leucocytosis SNOMED Code(s): 485740603, 399736578 Code(s): D72.829 - ELEVATED WHITE BLOOD CELL COUNT, UNSPECIFIED Status: Acute (5) Alcoholic hepatitis SNOMED Code(s): 433081240 Code(s): K70.10 - ALCOHOLIC HEPATITIS WITHOUT ASCITES Status: Acute Qualifiers: Ascites presence: without ascites Qualified Code(s): K70.10 - Alcoholic hepatitis without ascites (6) Hyperbilirubinemia SNOMED Code(s): 06534569 Code(s): E80.6 - OTHER DISORDERS OF BILIRUBIN METABOLISM Status: Acute - Problem List Review Problem List Initiated/Reviewed/Updated: Yes - My Orders Last 24 Hours: My Active Orders 06/02/20 12:00 Lactated Ringers [Ringers, Lactated] 1,000 ml IV ASDIRECTED 06/03/20 09:00 Morphine 1 mg IVPUSH Q6H PRN 06/03/20 Lunch Soft Diet [DIET] 06/03/20 21:00 chlordiazePOXIDE [Librium] 5 mg PO BID - Plan Plan:: 30 y/o F admitted for acute alcoholic pancreatitis 1. Acute alcoholic pancreatitis - improving - decrease fluids to LR 70 mls/hr - Continue Protonix daily IV - Monitor electrolytes and replace as needed - MRCP ruled out stone -Advance diet to soft diet 2. Alcohol withdrawal - Symptoms pretty much have resolved - Continue CIWAA protocol with Ativan - cont. tapering Librium, now 5 mg BID - Thiamine and folic acid daily - HIGH FALL RISK due to alcohol withdrawal - Monitor closely 3. Alcoholic hepatitis: - Bilirubin improving, continue to monitor - Hepatitis panel pending - INR 1.1 - Hepatomegaly noted with severe fatty infiltration noted on imaging. -Will taper off IV morphine - Spoke with Dr Francis, GI specialist. Agreed with Alcoholic hepatitis no need for transfer, continue current course of treatment. 4. Hyperglycemia - Novolog SSI TID - A1c 5.1 5. Electrolyte abnormalities - Replace phosphorus today PO, recheck in am VTE prophylaxis: Lovenox GI prophylaxis: Protonix Dispo: 1-2 days pending improvement, Arranging care for outpatient rehab, as patient and family do not have the means for inpatient rehabilitation.
[2020-06-03] MEDS: Enoxaparin 40 MG/0.4 ML Syringe SUBCUT SCH (16:49)
[2020-06-03] MEDS: Ibuprofen 400 MG Tab PO PRN (17:59)
[2020-06-04] MEDS: Morphine 2 MG/ML SYRINGE IVPUSH PRN ×3 (03:30→20:09)
[2020-06-04] MEDS: Phosphorus #1 250 MG Tab PO SCH ×4 (05:18→23:05)
[2020-06-04 06:18] LABS: BLOOD UREA NITROGEN,BUN 5 mg/dL (7.0-18.0); CARBON DIOXIDE,CO2 25.5 mmol/L (21.0-32.0); CHLORIDE,CL 97 mmol/L (98-107); GLUCOSE RANDOM 288 mg/dL (74-106); SODIUM,NA 133 mmol/L (136-145)
[2020-06-04] MEDS: Ibuprofen 400 MG Tab PO PRN ×3 (06:57→23:04)
[2020-06-04] MEDS: Folic Acid 1 MG Tab PO SCH (09:37)
[2020-06-04] MEDS: Pantoprazole 40 MG in Sodium Chloride 0.9% 10 ML IV SCH (09:38)
[2020-06-04] MEDS: Thiamine 100 MG in Sodium Chloride 0.9% 100 ML IV SCH (09:43)
[2020-06-04] MEDS: Lactated Ringers 1,000 ML IV SCH ×2 (09:47→23:05)
[2020-06-04] MEDS: Insulin Aspart 100 Units/ML 3 ML Pen SUBCUT SCH ×3 (10:42→18:29)
--- NOTE | 2020-06-04 11:15 | PCM.PN ---
- General Info Date of Service: 06/04/20 - Review of Systems Systems Review Comment:: patient reports abdominal pain has improved - Patient Data Vitals - Most Recent: Last Vital Signs Temp 36.1 C 06/04/20 07:14 Pulse 73 06/04/20 07:14 Resp 18 06/04/20 07:14 BP 133/86 06/04/20 07:14 Pulse Ox 97 06/04/20 07:14 Weight - Most Recent: 71.169 kg I&O - Last 24 Hours: Intake & Output 06/03/20 06/04/20 06/04/20 22:59 06:59 14:59 Intake Total 1140 1283 Balance 1140 1283 Lab Results Last 24 Hours: Laboratory Results - last 24 hr 06/03/20 06/03/20 06/04/20 Range/Units 12:25 17:55 05:21 WBC 6.60 (4.0-11.0) K/uL RBC 3.52 L (4.30-5.90) M/uL Hgb 11.7 L (12.0-16.0) g/dL Hct 35.1 L (36.0-46.0) % MCV 99.7 H (80.0-98.0) fL MCH 33.2 H (27.0-32.0) pg MCHC 33.3 (31.0-37.0) g/dL RDW Std Deviation 48.5 (28.0-62.0) fl RDW Coeff of Vanessa 13 (11.0-15.0) % Plt Count 240 (150-400) K/uL MPV 10.70 (7.40-12.00) fL Add Manual Diff YES Neutrophils % (Manual) 60 (48.0-80.0) % Band Neutrophils % 6 % Lymphocytes % (Manual) 18 (16.0-40.0) % Atypical Lymphs % 0 Monocytes % (Manual) 15 (0.0-15.0) % Eosinophils % (Manual) 1 (0.0-7.0) % Nucleated RBC % 0.0 /100WBC Absolute Seg Neuts 4.0 (1.4-5.7) Band Neutrophils # 0.4 Lymphocytes # (Manual) 1.2 (0.6-2.4) Monocytes # (Manual) 1.0 H (0.0-0.8) Eosinophils # (Manual) 0.1 (0.0-0.7) Nucleated RBCs # 0 K/uL Sodium (136-145) mmol/L Potassium (3.5-5.1) mmol/L Chloride (98-107) mmol/L Carbon Dioxide (21.0-32.0) mmol/L BUN (7.0-18.0) mg/dL Creatinine (0.6-1.0) mg/dL Est Cr Clr Drug Dosing mL/min Estimated GFR (MDRD) ml/min Glucose (74-106) mg/dL POC Glucose 240 H 234 H (60-110) mg/dL Calcium (8.5-10.1) mg/dL Phosphorus (2.6-4.7) mg/dL Magnesium (1.8-2.4) mg/dL Total Bilirubin (0.2-1.0) mg/dL AST (15-37) IU/L ALT (14-63) IU/L Alkaline Phosphatase (46-116) U/L Total Protein (6.4-8.2) g/dL Albumin (3.4-5.0) g/dL Globulin (2.6-4.0) g/dL Albumin/Globulin Ratio (0.9-1.6) 06/04/20 06/04/20 06/04/20 Range/Units 05:21 06:35 10:36 WBC (4.0-11.0) K/uL RBC (4.30-5.90) M/uL Hgb (12.0-16.0) g/dL Hct (36.0-46.0) % MCV (80.0-98.0) fL MCH (27.0-32.0) pg MCHC (31.0-37.0) g/dL RDW Std Deviation (28.0-62.0) fl RDW Coeff of Vanessa (11.0-15.0) % Plt Count (150-400) K/uL MPV (7.40-12.00) fL Add Manual Diff Neutrophils % (Manual) (48.0-80.0) % Band Neutrophils % % Lymphocytes % (Manual) (16.0-40.0) % Atypical Lymphs % Monocytes % (Manual) (0.0-15.0) % Eosinophils % (Manual) (0.0-7.0) % Nucleated RBC % /100WBC Absolute Seg Neuts (1.4-5.7) Band Neutrophils # Lymphocytes # (Manual) (0.6-2.4) Monocytes # (Manual) (0.0-0.8) Eosinophils # (Manual) (0.0-0.7) Nucleated RBCs # K/uL Sodium 133 L (136-145) mmol/L Potassium 4.0 (3.5-5.1) mmol/L Chloride 97 L (98-107) mmol/L Carbon Dioxide 25.5 (21.0-32.0) mmol/L BUN 5 L (7.0-18.0) mg/dL Creatinine 0.7 (0.6-1.0) mg/dL Est Cr Clr Drug Dosing 107.67 mL/min Estimated GFR (MDRD) > 60.0 ml/min Glucose 288 H (74-106) mg/dL POC Glucose 278 H 253 H (60-110) mg/dL Calcium 8.6 (8.5-10.1) mg/dL Phosphorus 4.0 (2.6-4.7) mg/dL Magnesium 2.0 (1.8-2.4) mg/dL Total Bilirubin 3.2 H (0.2-1.0) mg/dL AST 45 H (15-37) IU/L ALT 64 H (14-63) IU/L Alkaline Phosphatase 101 (46-116) U/L Total Protein 6.4 (6.4-8.2) g/dL Albumin 2.7 L (3.4-5.0) g/dL Globulin 3.7 (2.6-4.0) g/dL Albumin/Globulin Ratio 0.7 L (0.9-1.6) [place] Results Last 24 Hours: Microbiology 05/29/20 13:13 Aerobic Blood Culture - Final Blood - Venous - Lab Draw NO GROWTH AFTER 5 DAYS Anaerobic Blood Culture - Final NO GROWTH AFTER 5 DAYS 05/29/20 12:46 Aerobic Blood Culture - Final Blood - Venous NO GROWTH AFTER 5 DAYS Anaerobic Blood Culture - Final NO GROWTH AFTER 5 DAYS Med Orders - Current: Current Medications Enoxaparin Sodium (Lovenox) 40 mg SUBCUT Q24H [facility] Last Admin: 06/03/20 16:49 Dose: 40 mg Documented by: Folic Acid (Folic Acid) 1 mg PO DAILY [facility] Last Admin: 06/04/20 09:37 Dose: 1 mg Documented by: Pantoprazole Sodium 40 mg/ (Sodium Chloride) 10 mls @ 300 mls/hr IV DAILY [facility] Last Admin: 06/04/20 09:38 Dose: 300 mls/hr Documented by: Thiamine HCl 100 mg/ Sodium (Chloride) 101 mls @ 202 mls/hr IV DAILY [facility] Last Admin: 06/04/20 09:43 Dose: 202 mls/hr Documented by: Lactated Ringer's (Ringers, Lactated) 1,000 mls @ 75 mls/hr IV ASDIRECTED [facility] Last Admin: 06/04/20 09:47 Dose: 75 mls/hr Documented by: Ibuprofen (Motrin) 400 mg PO Q8H PRN PRN Reason: Pain Last Admin: 06/04/20 06:57 Dose: 400 mg Documented by: Insulin Aspart (Novolog) 0 unit SUBCUT TIDAC [facility]; Protocol Last Admin: 06/04/20 10:42 Dose: 6 unit Documented by: Lorazepam (Ativan) 0 mg IVPUSH Q1H PRN; Protocol PRN Reason: Withdrawal Symptoms Last Admin: 05/31/20 22:50 Dose: 2 mg Documented by: Morphine Sulfate (Morphine) 1 mg IVPUSH Q6H PRN PRN Reason: Pain Last Admin: 06/04/20 09:57 Dose: 1 mg Documented by: Ondansetron HCl (Zofran) 4 mg IVPUSH Q4H PRN PRN Reason: Nausea/Vomitting Last Admin: 05/29/20 07:10 Dose: 4 mg Documented by: Sodium Phosphate (Neutra-Phos) 250 mg PO QID [facility] Last Admin: 06/04/20 05:18 Dose: 250 mg Documented by: Discontinued Medications Chlordiazepoxide HCl (Librium) 25 mg PO BID [facility] Last Admin: 05/29/20 20:07 Dose: 25 mg Documented by: Chlordiazepoxide HCl (Librium) 25 mg PO ONETIME ONE Stop: 05/29/20 18:20 Last Admin: 05/29/20 18:38 Dose: 25 mg Documented by: Chlordiazepoxide HCl (Librium) 50 mg PO BID [facility] Last Admin: 05/31/20 20:29 Dose: 50 mg Documented by: Chlordiazepoxide HCl (Librium) 25 mg PO BID [facility] Last Admin: 06/02/20 08:57 Dose: 25 mg Documented by: Chlordiazepoxide HCl (Librium) 10 mg PO BID [facility] Last Admin: 06/03/20 08:30 Dose: 10 mg Documented by: Chlordiazepoxide HCl (Librium) 5 mg PO BID [facility] Last Admin: 06/04/20 09:37 Dose: 5 mg Documented by: Folic Acid (Folic Acid) 1 mg IV DAILY [facility] Last Admin: 06/01/20 08:21 Dose: 1 mg Documented by: Hydromorphone HCl (Dilaudid) 1 mg IVPUSH ONETIME ONE Stop: 05/28/20 22:00 Last Admin: 05/28/20 22:20 Dose: 1 mg Documented by: Hydromorphone HCl (Dilaudid) 1 mg IVPUSH ONETIME ONE Stop: 05/28/20 23:44 Last Admin: 05/29/20 00:04 Dose: 1 mg Documented by: Lactated Ringer's (Ringers, Lactated) 1,000 mls @ 999 mls/hr IV .BOLUS ONE Stop: 05/28/20 22:59 Last Admin: 05/28/20 22:19 Dose: 999 mls/hr Documented by: Lactated Ringer's (Ringers, Lactated) 1,000 mls @ 125 mls/hr IV ASDIRECTED [facility] Last Admin: 05/29/20 00:00 Dose: 125 mls/hr Documented by: Lactated Ringer's (Ringers, Lactated) 1,000 mls @ 200 mls/hr IV ASDIRECTED [facility] Last Infusion: 05/31/20 15:10 Dose: 125 mls/hr Documented by: Lactated Ringer's (Ringers, Lactated) 1,000 mls @ 999 mls/hr IV ONETIME ONE Stop: 05/29/20 10:26 Last Admin: 05/29/20 09:33 Dose: 999 mls/hr Documented by: Piperacillin Sod/Tazobactam (Sod 3.375 gm/ Sodium Chloride) 100 mls @ 200 mls/hr IV Q8H [facility] Last Admin: 05/31/20 03:07 Dose: 200 mls/hr Documented by: Magnesium Sulfate 2 gm/ Premix 50 mls @ 50 mls/hr IV ONETIME ONE Stop: 05/29/20 11:17 Last Admin: 05/29/20 11:15 Dose: 50 mls/hr Documented by: Multivitamins/Minerals 10 ml/Thiamine HCl 100 mg/ Folic Acid 1 mg/ Sodium Chloride 1,011.2 mls @ 200 mls/hr IV ONETIME ONE Stop: 05/29/20 15:21 Last Admin: 05/29/20 13:18 Dose: Not Given Documented by: Multivitamins/Minerals 10 ml/Thiamine HCl 100 mg/ Folic Acid 1 mg/ Sodium Chloride 1,011.2 mls @ 200 mls/hr IV ONETIME ONE Stop: 05/29/20 17:18 Last Admin: 05/29/20 13:13 Dose: 200 mls/hr Documented by: Lactated Ringer's (Ringers, Lactated) 1,000 mls @ 999 mls/hr IV ONETIME ONE Stop: 05/29/20 13:26 Last Admin: 05/29/20 13:10 Dose: 999 mls/hr Documented by: Vancomycin HCl 1.5 gm/ Premix 300 mls @ 200 mls/hr IV ONETIME ONE Stop: 05/29/20 14:34 Last Admin: 05/29/20 14:30 Dose: 200 mls/hr Documented by: Lactated Ringer's (Ringers, Lactated) 1,000 mls @ 999 mls/hr IV .BOLUS ONE Stop: 05/29/20 14:08 Last Admin: 05/29/20 14:13 Dose: 999 mls/hr Documented by: Vancomycin HCl 1 gm/ Sodium (Chloride) 250 mls @ 166.667 mls/hr IV Q12H [facility] Last Admin: 05/30/20 01:12 Dose: 166.667 mls/hr Documented by: Lactated Ringer's (Ringers, Lactated) 1,000 mls @ 500 mls/hr IV .BOLUS ONE Stop: 05/29/20 19:37 Last Admin: 05/29/20 18:26 Dose: 500 mls/hr Documented by: Multivitamins/Minerals 10 ml/Thiamine HCl 100 mg/ Folic Acid 1 mg/ Sodium Chloride 1,011.2 mls @ 500 mls/hr IV ONETIME ONE Stop: 05/29/20 22:50 Last Infusion: 05/29/20 23:09 Dose: 999 mls/hr Documented by: Sodium Chloride (Normal Saline (Advbag)) Confirm Administered Dose 250 mls @ as directed .ROUTE .STK-MED ONE Stop: 05/30/20 00:25 Last Admin: 05/30/20 01:08 Dose: Not Given Documented by: Lactated Ringer's (Ringers, Lactated) 1,000 mls @ 999 mls/hr IV .BOLUS ONE Stop: 05/30/20 09:05 Last Admin: 05/30/20 08:15 Dose: 999 mls/hr Documented by: Magnesium Sulfate 4 gm/Potassium Phosphate 20 mmole/Sodium Chloride 1,014.6667 mls @ 150 mls/hr IV ONETIME ONE Stop: 05/30/20 15:15 Last Admin: 05/30/20 08:44 Dose: 150 mls/hr Documented by: Piperacillin Sod/Tazobactam (Sod 3.375 gm/ Sodium Chloride) 100 mls @ 200 mls/hr IV Q6H [facility] Last Admin: 05/31/20 09:55 Dose: 200 mls/hr Documented by: Potassium Phosphate 30 mmole/ (Sodium Chloride) 1,010 mls @ 125 mls/hr IV ONETIME ONE Stop: 05/31/20 16:11 Last Infusion: 05/31/20 14:15 Dose: 125 mls/hr Documented by: Lactated Ringer's (Ringers, Lactated) 1,000 mls @ 125 mls/hr IV Q8H [facility] Last Infusion: 05/31/20 22:48 Dose: Infused Documented by: Lactated Ringer's (Ringers, Lactated) 1,000 mls @ 100 mls/hr IV ASDIRECTED [facility] Last Admin: 06/02/20 06:17 Dose: 100 mls/hr Documented by: Insulin Aspart (Novolog) 7 unit SUBCUT ONETIME ONE Stop: 06/01/20 23:01 Insulin Aspart (Novolog) 7 unit SUBCUT ONETIME ONE Stop: 05/31/20 23:13 Last Admin: 05/31/20 23:22 Dose: 7 units Documented by: Insulin Human Regular (Novolin R) 0 unit SUBCUT BIDAC [facility]; Protocol Insulin Human Regular (Novolin R) 0 unit SUBCUT TID [facility]; Protocol Last Admin: 06/01/20 14:43 Dose: Not Given Documented by: Insulin Human Regular (Novolin R) 0 unit SUBCUT TIDAC [facility]; Protocol Last Admin: 06/01/20 17:25 Dose: Not Given Documented by: Lorazepam (Ativan) 2 mg IVPUSH ONETIME ONE Stop: 05/28/20 23:44 Last Admin: 05/29/20 00:01 Dose: 2 mg Documented by: Lorazepam (Ativan) 0 mg IVPUSH Q4H PRN; Protocol PRN Reason: Withdrawal Symptoms Last Admin: 05/29/20 08:10 Dose: 2 mg Documented by: Lorazepam (Ativan) Confirm Administered Dose 2 mg .ROUTE .STK-MED ONE Stop: 05/29/20 17:30 Last Admin: 05/29/20 17:43 Dose: 2 mg Documented by: Morphine Sulfate (Morphine) 2 mg IVPUSH Q4H PRN PRN Reason: Pain Last Admin: 05/29/20 11:06 Dose: 2 mg Documented by: Morphine Sulfate (Morphine) 1 mg IVPUSH Q4H PRN PRN Reason: Pain Last Admin: 06/03/20 07:31 Dose: 1 mg Documented by: Morphine Sulfate (Morphine) 1 mg IVPUSH ONETIME ONE Stop: 06/01/20 18:11 Last Admin: 06/01/20 18:26 Dose: 1 mg Documented by: Vancomycin HCl (Pharmacy To Dose - Vancomycin) 1 dose .XX ASDIRECTED [facility] Vancomycin HCl (Vancocin) Confirm Administered Dose 1 gm .ROUTE .STK-MED ONE Stop: 05/30/20 00:24 Last Admin: 05/30/20 01:08 Dose: Not Given Documented by: - Exam General: Alert, Oriented HEENT: Mucous Membr. Moist/[place] Neck: Supple Lungs: Clear to Auscultation, Normal Respiratory Effort Cardiovascular: Regular Rate, Regular Rhythm GI/Abdominal Exam: Normal Bowel Sounds, Soft, Non-Tender Extremities: Non-Tender, No Pedal Edema Skin: Warm, Dry, Intact Sepsis Event Note - Evaluation Sepsis Screening Result: No Definite Risk - Focused Exam Vital Signs: Vital Signs Temp Pulse Resp BP Pulse Ox 06/04/20 07:14 36.1 C 73 18 133/86 97 06/04/20 03:23 36.3 C 85 16 129/88 99 Date Exam was Performed: 06/04/20 Time Exam was Performed: 11:13 - Problem List Review Problem List Initiated/Reviewed/Updated: Yes - My Orders Last 24 Hours: My Active Orders 06/05/20 05:11 CBC WITH AUTO DIFF [HEME] AM CMP [COMPREHENSIVE METABOLIC PN,CMP] [CHEM] AM MAGNESIUM [CHEM] AM PHOSPHORUS [CHEM] AM - Plan Plan:: 30 y/o F admitted for acute alcoholic pancreatitis 1. Acute alcoholic pancreatitis - fluids LR 70 mls/hr - Continue Protonix daily IV - Monitor electrolytes and replace as needed - MRCP ruled out stone - soft diet 2. Alcohol withdrawal - - Continue CIWAA protocol with Ativan - cont. tapering Librium, - Thiamine and folic acid daily - HIGH FALL RISK due to alcohol withdrawal - Monitor closely 3. Alcoholic hepatitis: - Bilirubin improving, continue to monitor - Hepatitis panel pending - INR 1.1 - Hepatomegaly noted with severe fatty infiltration noted on imaging. -Will taper off IV morphine 4. Hyperglycemia - Novolog SSI TID - A1c 5.1 5. Electrolyte abnormalities - Replace phosphorus today PO, recheck in am VTE prophylaxis: Lovenox GI prophylaxis: Protonix Dispo: 1-2 days pending improvement, Arranging care for outpatient rehab, as patient and family do not have the means for inpatient rehabilitation.
[2020-06-04] MEDS: Enoxaparin 40 MG/0.4 ML Syringe SUBCUT SCH (15:13)
[2020-06-05] MEDS: Morphine 2 MG/ML SYRINGE IVPUSH PRN (03:10)
[2020-06-05] MEDS: Phosphorus #1 250 MG Tab PO SCH ×2 (05:30→12:35)
[2020-06-05 05:50] LABS: BLOOD UREA NITROGEN,BUN 3 mg/dL (7.0-18.0); CARBON DIOXIDE,CO2 26.2 mmol/L (21.0-32.0); CHLORIDE,CL 98 mmol/L (98-107); GLUCOSE RANDOM 293 mg/dL (74-106); POTASSIUM,K 3.9 mmol/L (3.5-5.1); SODIUM,NA 135 mmol/L (136-145)
[2020-06-05] MEDS: Ibuprofen 400 MG Tab PO PRN (08:03)
[2020-06-05] MEDS: Folic Acid 1 MG Tab PO SCH (08:03)
[2020-06-05] MEDS: Insulin Aspart 100 Units/ML 3 ML Pen SUBCUT SCH ×2 (08:16→12:35)
[2020-06-05] MEDS: Pantoprazole 40 MG in Sodium Chloride 0.9% 10 ML IV SCH (09:09)
[2020-06-05] MEDS: Thiamine 100 MG in Sodium Chloride 0.9% 100 ML IV SCH (09:09)
--- NOTE | 2020-06-05 09:12 | PCM.DCSUM1 ---
Discharge Summary - Discharge Data Discharge Date: 06/05/20 Discharge Disposition: Home, Self-Care 01 Condition: Good - Referral to Home Health Primary Care Physician: PCP None - Patient Summary/Data Consults: Consultations 05/29/20 13:39 Consult to Physician [CONS] Stat Hospital Course: 30-year-old female with history of chronic alcohol abuse who was admitted for alcohol withdrawal, and acute alcoholic pancreatitis and acute alcoholic hepatitis. She presented at [facility] with two day history of abdominal pain. Her lipase was [address] scan was performed there demonstrating acute pancreatitis with no necrosis or fluid collection. Patient was sent here for US of Gallbladder to r/o gallbladder etiology given lack of ultrasound at [facility]. She was drinking 10 shots of vodka every day, her last 10 shots was a day before admission. US of GB was performed here and didn't show any stones. She did have a lipase that was elevated 4738. For her pancreatitis she was treated with IV fluids and bowel rest. She was transferred to the ICU as she began to show withdrawal symptoms. She was treated with Librium and Ativan per [facility] protocol. Her electrolytes were replaced as needed. Her bilirubin did rise to 9.8. She had an MRCP which did not show any CBD stones. Her abdominal pain resolved and she was able to tolerate an oral diet. She was weened off Librium and has not required Ativan in several days. Her bilirubin did improve to 2.6. She is eager for discharge today. She was discharged home and plans on living with parents until she gets into a rehab program. - Discharge Plan *PRESCRIPTION DRUG MONITORING PROGRAM REVIEWED*: Not Applicable *COPY OF PRESCRIPTION DRUG MONITORING REPORT IN PATIENT SAUMYA: Not Applicable Home Medications: Home Meds . [No Known Home Meds] 05/28/20 [History] Patient Handouts: Alcohol Use Disorder, Alcohol Abuse and Dependence Information, Adult, Acute Pancreatitis, [id number], Finding Treatment for Addiction Referrals: Willie Holcomb MD [Ordering Only Provider] - () Rose Luna NP [Nurse Practitioner] - 06/09/20 10:30 am (Please bring your own facemask to your appointment.) - Discharge Summary/Plan Comment DC Time >30 min.: No - Patient Data Vitals - Most Recent: Last Vital Signs Temp 36.6 C 06/05/20 07:00 Pulse 78 06/05/20 07:00 Resp 18 06/05/20 07:00 BP 124/89 06/05/20 07:00 Pulse Ox 96 06/05/20 07:00 Weight - Most Recent: 71.169 kg I&O - Last 24 hours: Intake & Output 06/04/20 06/05/20 06/05/20 22:59 06:59 14:59 Intake Total 1250 2636 Balance 1250 2636 Lab Results - Last 24 hrs: Laboratory Results - last 24 hr 06/04/20 06/04/20 06/05/20 Range/Units 10:36 18:26 05:13 WBC 6.09 (4.0-11.0) K/uL RBC 3.46 L (4.30-5.90) M/uL Hgb 11.3 L (12.0-16.0) g/dL Hct 34.3 L (36.0-46.0) % MCV 99.1 H (80.0-98.0) fL MCH 32.7 H (27.0-32.0) pg MCHC 32.9 (31.0-37.0) g/dL RDW Std Deviation 47.6 (28.0-62.0) fl RDW Coeff of Vanessa 13 (11.0-15.0) % Plt Count 312 (150-400) K/uL MPV 10.30 (7.40-12.00) fL Add Manual Diff YES Neutrophils % (Manual) 58 (48.0-80.0) % Band Neutrophils % 5 % Lymphocytes % (Manual) 22 (16.0-40.0) % Monocytes % (Manual) 12 (0.0-15.0) % Eosinophils % (Manual) 2 (0.0-7.0) % Basophils % (Manual) 1 (0.0-1.5) % Nucleated RBC % 0.0 /100WBC Absolute Seg Neuts 3.5 (1.4-5.7) Band Neutrophils # 0.3 Lymphocytes # (Manual) 1.3 (0.6-2.4) Monocytes # (Manual) 0.7 (0.0-0.8) Eosinophils # (Manual) 0.1 (0.0-0.7) Basophils # (Manual) 0.1 (0.0-0.1) Nucleated RBCs # 0 K/uL Sodium (136-145) mmol/L Potassium (3.5-5.1) mmol/L Chloride (98-107) mmol/L Carbon Dioxide (21.0-32.0) mmol/L BUN (7.0-18.0) mg/dL Creatinine (0.6-1.0) mg/dL Est Cr Clr Drug Dosing mL/min Estimated GFR (MDRD) ml/min Glucose (74-106) mg/dL POC Glucose 253 H 277 H (60-110) mg/dL Calcium (8.5-10.1) mg/dL Phosphorus (2.6-4.7) mg/dL Magnesium (1.8-2.4) mg/dL Total Bilirubin (0.2-1.0) mg/dL AST (15-37) IU/L ALT (14-63) IU/L Alkaline Phosphatase (46-116) U/L Total Protein (6.4-8.2) g/dL Albumin (3.4-5.0) g/dL Globulin (2.6-4.0) g/dL Albumin/Globulin Ratio (0.9-1.6) // Range/Units 05:13 WBC (4.0-11.0) K/uL RBC (4.30-5.90) M/uL Hgb (12.0-16.0) g/dL Hct (36.0-46.0) % MCV (80.0-98.0) fL MCH (27.0-32.0) pg MCHC (31.0-37.0) g/dL RDW Std Deviation (28.0-62.0) fl RDW Coeff of Vanessa (11.0-15.0) % Plt Count (150-400) K/uL MPV (7.40-12.00) fL Add Manual Diff Neutrophils % (Manual) (48.0-80.0) % Band Neutrophils % % Lymphocytes % (Manual) (16.0-40.0) % Monocytes % (Manual) (0.0-15.0) % Eosinophils % (Manual) (0.0-7.0) % Basophils % (Manual) (0.0-1.5) % Nucleated RBC % /100WBC Absolute Seg Neuts (1.4-5.7) Band Neutrophils # Lymphocytes # (Manual) (0.6-2.4) Monocytes # (Manual) (0.0-0.8) Eosinophils # (Manual) (0.0-0.7) Basophils # (Manual) (0.0-0.1) Nucleated RBCs # K/uL Sodium 135 L (136-145) mmol/L Potassium 3.9 (3.5-5.1) mmol/L Chloride 98 (98-107) mmol/L Carbon Dioxide 26.2 (21.0-32.0) mmol/L BUN 3 L (7.0-18.0) mg/dL Creatinine 0.7 (0.6-1.0) mg/dL Est Cr Clr Drug Dosing 107.67 mL/min Estimated GFR (MDRD) > 60.0 ml/min Glucose 293 H (74-106) mg/dL POC Glucose (60-110) mg/dL Calcium 8.6 (8.5-10.1) mg/dL Phosphorus 4.2 (2.6-4.7) mg/dL Magnesium 1.9 (1.8-2.4) mg/dL Total Bilirubin 2.6 H (0.2-1.0) mg/dL AST 42 H (15-37) IU/L ALT 60 (14-63) IU/L Alkaline Phosphatase 95 (46-116) U/L Total Protein 6.2 L (6.4-8.2) g/dL Albumin 2.7 L (3.4-5.0) g/dL Globulin 3.5 (2.6-4.0) g/dL Albumin/Globulin Ratio 0.8 L (0.9-1.6) Med Orders - Current: Current Medications Enoxaparin Sodium (Lovenox) 40 mg SUBCUT Q24H [facility] Last Admin: 06/04/20 15:13 Dose: 40 mg Documented by: Folic Acid (Folic Acid) 1 mg PO DAILY [facility] Last Admin: 06/05/20 08:03 Dose: 1 mg Documented by: Pantoprazole Sodium 40 mg/ (Sodium Chloride) 10 mls @ 300 mls/hr IV DAILY [facility] Last Admin: 06/04/20 09:38 Dose: 300 mls/hr Documented by: Thiamine HCl 100 mg/ Sodium (Chloride) 101 mls @ 202 mls/hr IV DAILY [facility] Last Admin: 06/04/20 09:43 Dose: 202 mls/hr Documented by: Lactated Ringer's (Ringers, Lactated) 1,000 mls @ 75 mls/hr IV ASDIRECTED [facility] Last Admin: 06/04/20 23:05 Dose: 75 mls/hr Documented by: Ibuprofen (Motrin) 400 mg PO Q8H PRN PRN Reason: Pain Last Admin: 06/05/20 08:03 Dose: 400 mg Documented by: Insulin Aspart (Novolog) 0 unit SUBCUT TIDAC [facility]; Protocol Last Admin: 06/05/20 08:16 Dose: 6 unit Documented by: Lorazepam (Ativan) 0 mg IVPUSH Q1H PRN; Protocol PRN Reason: Withdrawal Symptoms Last Admin: 05/31/20 22:50 Dose: 2 mg Documented by: Morphine Sulfate (Morphine) 1 mg IVPUSH Q6H PRN PRN Reason: Pain Last Admin: 06/05/20 03:10 Dose: 1 mg Documented by: Ondansetron HCl (Zofran) 4 mg IVPUSH Q4H PRN PRN Reason: Nausea/Vomitting Last Admin: 05/29/20 07:10 Dose: 4 mg Documented by: Sodium Phosphate (Neutra-Phos) 250 mg PO QID [facility] Last Admin: 06/05/20 05:30 Dose: 250 mg Documented by: Discontinued Medications Chlordiazepoxide HCl (Librium) 25 mg PO BID [facility] Last Admin: 05/29/20 20:07 Dose: 25 mg Documented by: Chlordiazepoxide HCl (Librium) 25 mg PO ONETIME ONE Stop: 05/29/20 18:20 Last Admin: 05/29/20 18:38 Dose: 25 mg Documented by: Chlordiazepoxide HCl (Librium) 50 mg PO BID [facility] Last Admin: 05/31/20 20:29 Dose: 50 mg Documented by: Chlordiazepoxide HCl (Librium) 25 mg PO BID [facility] Last Admin: 06/02/20 08:57 Dose: 25 mg Documented by: Chlordiazepoxide HCl (Librium) 10 mg PO BID [facility] Last Admin: 06/03/20 08:30 Dose: 10 mg Documented by: Chlordiazepoxide HCl (Librium) 5 mg PO BID [facility] Last Admin: 06/04/20 09:37 Dose: 5 mg Documented by: Folic Acid (Folic Acid) 1 mg IV DAILY [facility] Last Admin: 06/01/20 08:21 Dose: 1 mg Documented by: Hydromorphone HCl (Dilaudid) 1 mg IVPUSH ONETIME ONE Stop: 05/28/20 22:00 Last Admin: 05/28/20 22:20 Dose: 1 mg Documented by: Hydromorphone HCl (Dilaudid) 1 mg IVPUSH ONETIME ONE Stop: 05/28/20 23:44 Last Admin: 05/29/20 00:04 Dose: 1 mg Documented by: Lactated Ringer's (Ringers, Lactated) 1,000 mls @ 999 mls/hr IV .BOLUS ONE Stop: 05/28/20 22:59 Last Admin: 05/28/20 22:19 Dose: 999 mls/hr Documented by: Lactated Ringer's (Ringers, Lactated) 1,000 mls @ 125 mls/hr IV ASDIRECTED [facility] Last Admin: 05/29/20 00:00 Dose: 125 mls/hr Documented by: Lactated Ringer's (Ringers, Lactated) 1,000 mls @ 200 mls/hr IV ASDIRECTED [facility] Last Infusion: 05/31/20 15:10 Dose: 125 mls/hr Documented by: Lactated Ringer's (Ringers, Lactated) 1,000 mls @ 999 mls/hr IV ONETIME ONE Stop: 05/29/20 10:26 Last Admin: 05/29/20 09:33 Dose: 999 mls/hr Documented by: Piperacillin Sod/Tazobactam (Sod 3.375 gm/ Sodium Chloride) 100 mls @ 200 mls/hr IV Q8H [facility] Last Admin: 05/31/20 03:07 Dose: 200 mls/hr Documented by: Magnesium Sulfate 2 gm/ Premix 50 mls @ 50 mls/hr IV ONETIME ONE Stop: 05/29/20 11:17 Last Admin: 05/29/20 11:15 Dose: 50 mls/hr Documented by: Multivitamins/Minerals 10 ml/Thiamine HCl 100 mg/ Folic Acid 1 mg/ Sodium Chloride 1,011.2 mls @ 200 mls/hr IV ONETIME ONE Stop: 05/29/20 15:21 Last Admin: 05/29/20 13:18 Dose: Not Given Documented by: Multivitamins/Minerals 10 ml/Thiamine HCl 100 mg/ Folic Acid 1 mg/ Sodium Chloride 1,011.2 mls @ 200 mls/hr IV ONETIME ONE Stop: 05/29/20 17:18 Last Admin: 05/29/20 13:13 Dose: 200 mls/hr Documented by: Lactated Ringer's (Ringers, Lactated) 1,000 mls @ 999 mls/hr IV ONETIME ONE Stop: 05/29/20 13:26 Last Admin: 05/29/20 13:10 Dose: 999 mls/hr Documented by: Vancomycin HCl 1.5 gm/ Premix 300 mls @ 200 mls/hr IV ONETIME ONE Stop: 05/29/20 14:34 Last Admin: 05/29/20 14:30 Dose: 200 mls/hr Documented by: Lactated Ringer's (Ringers, Lactated) 1,000 mls @ 999 mls/hr IV .BOLUS ONE Stop: 05/29/20 14:08 Last Admin: 05/29/20 14:13 Dose: 999 mls/hr Documented by: Vancomycin HCl 1 gm/ Sodium (Chloride) 250 mls @ 166.667 mls/hr IV Q12H [facility] Last Admin: 05/30/20 01:12 Dose: 166.667 mls/hr Documented by: Lactated Ringer's (Ringers, Lactated) 1,000 mls @ 500 mls/hr IV .BOLUS ONE Stop: 05/29/20 19:37 Last Admin: 05/29/20 18:26 Dose: 500 mls/hr Documented by: Multivitamins/Minerals 10 ml/Thiamine HCl 100 mg/ Folic Acid 1 mg/ Sodium Chloride 1,011.2 mls @ 500 mls/hr IV ONETIME ONE Stop: 05/29/20 22:50 Last Infusion: 05/29/20 23:09 Dose: 999 mls/hr Documented by: Sodium Chloride (Normal Saline (Advbag)) Confirm Administered Dose 250 mls @ as directed .ROUTE .STK-MED ONE Stop: 05/30/20 00:25 Last Admin: 05/30/20 01:08 Dose: Not Given Documented by: Lactated Ringer's (Ringers, Lactated) 1,000 mls @ 999 mls/hr IV .BOLUS ONE Stop: 05/30/20 09:05 Last Admin: 05/30/20 08:15 Dose: 999 mls/hr Documented by: Magnesium Sulfate 4 gm/Potassium Phosphate 20 mmole/Sodium Chloride 1,014.6667 mls @ 150 mls/hr IV ONETIME ONE Stop: 05/30/20 15:15 Last Admin: 05/30/20 08:44 Dose: 150 mls/hr Documented by: Piperacillin Sod/Tazobactam (Sod 3.375 gm/ Sodium Chloride) 100 mls @ 200 mls/hr IV Q6H [facility] Last Admin: 05/31/20 09:55 Dose: 200 mls/hr Documented by: Potassium Phosphate 30 mmole/ (Sodium Chloride) 1,010 mls @ 125 mls/hr IV ONETIME ONE Stop: 05/31/20 16:11 Last Infusion: 05/31/20 14:15 Dose: 125 mls/hr Documented by: Lactated Ringer's (Ringers, Lactated) 1,000 mls @ 125 mls/hr IV Q8H [facility] Last Infusion: 05/31/20 22:48 Dose: Infused Documented by: Lactated Ringer's (Ringers, Lactated) 1,000 mls @ 100 mls/hr IV ASDIRECTED [facility] Last Admin: 06/02/20 06:17 Dose: 100 mls/hr Documented by: Insulin Aspart (Novolog) 7 unit SUBCUT ONETIME ONE Stop: 06/01/20 23:01 Insulin Aspart (Novolog) 7 unit SUBCUT ONETIME ONE Stop: 05/31/20 23:13 Last Admin: 05/31/20 23:22 Dose: 7 units Documented by: Insulin Human Regular (Novolin R) 0 unit SUBCUT BIDAC [facility]; Protocol Insulin Human Regular (Novolin R) 0 unit SUBCUT TID [facility]; Protocol Last Admin: 06/01/20 14:43 Dose: Not Given Documented by: Insulin Human Regular (Novolin R) 0 unit SUBCUT TIDAC [facility]; Protocol Last Admin: 06/01/20 17:25 Dose: Not Given Documented by: Lorazepam (Ativan) 2 mg IVPUSH ONETIME ONE Stop: 05/28/20 23:44 Last Admin: 05/29/20 00:01 Dose: 2 mg Documented by: Lorazepam (Ativan) 0 mg IVPUSH Q4H PRN; Protocol PRN Reason: Withdrawal Symptoms Last Admin: 05/29/20 08:10 Dose: 2 mg Documented by: Lorazepam (Ativan) Confirm Administered Dose 2 mg .ROUTE .STK-MED ONE Stop: 05/29/20 17:30 Last Admin: 05/29/20 17:43 Dose: 2 mg Documented by: Morphine Sulfate (Morphine) 2 mg IVPUSH Q4H PRN PRN Reason: Pain Last Admin: 05/29/20 11:06 Dose: 2 mg Documented by: Morphine Sulfate (Morphine) 1 mg IVPUSH Q4H PRN PRN Reason: Pain Last Admin: 06/03/20 07:31 Dose: 1 mg Documented by: Morphine Sulfate (Morphine) 1 mg IVPUSH ONETIME ONE Stop: 06/01/20 18:11 Last Admin: 06/01/20 18:26 Dose: 1 mg Documented by: Vancomycin HCl (Pharmacy To Dose - Vancomycin) 1 dose .XX ASDIRECTED [facility] Vancomycin HCl (Vancocin) Confirm Administered Dose 1 gm .ROUTE .STK-MED ONE Stop: 05/30/20 00:24 Last Admin: 05/30/20 01:08 Dose: Not Given Documented by:
== END 2020-06-05 11:05 | disposition home or self-care (01) | DRG 775 ==
LOC: MW.ED 21:41 → MW.MS 23:32 → OBSVTOIN 05-29 12:18 → MW.MS 05-29 13:03 → MW.ICU 05-29 14:20 → MW.MS 06-01 12:29
PROVIDERS: ADMIT Student in an Organized Health Care Education/Training Program; ATTEND Student in an Organized Health Care Education/Training Program
DX: F10.239 Alcohol dependence with withdrawal, unspecified (principal); K85.20 Alcohol induced acute pancreatitis without necrosis or infection; K70.10 Alcoholic hepatitis without ascites; F10.288 Alcohol dependence with other alcohol-induced disorder; K76.0 Fatty (change of) liver, not elsewhere classified; E87.5 Hyperkalemia; E87.2 Acidosis; Y90.2 Blood alcohol level of 40-59 mg/100 ml; R73.9 Hyperglycemia, unspecified; E87.8 Other disorders of electrolyte and fluid balance, not elsewhere classified; Z11.59 Encounter for screening for other viral diseases
CPT/HCPCS: 36415; 36600; 70450; 70450-26; 74176; 74176-26; 74181; 74181-26; 76705; 76705-26; 80048; 80053; 80061; 80074; 80307; 81001; 82247; 82248; 82803; 82962; 83036; 83605; 83690; 83735; 84100; 85025; 85610; 87040; 96361; 96365; 96367; 96374; 96375; 96376; 99284; 99285-25; A9270-GY; C9113; G0378; J1170; J1650; J1815-GY; J2060; J2270; J2405; J2543; J3370; J3411; J3475; J7030; J7050; J7120; U0002

== ENCOUNTER 2023-01-15 15:59 | Emergency (ER) | payer BC ==
[2023-01-15 17:09] LABS: BLOOD UREA NITROGEN,BUN 13 mg/dL (7.0-18.0); CHLORIDE,CL 101 mmol/L (98-107); GLUCOSE RANDOM 132 mg/dL (74-106); SODIUM,NA 139 mmol/L (136-145)
[2023-01-15 17:17] LABS: ESTIMATED GFR 119 mL/min (>60)
== END 2023-01-15 17:32 | disposition home or self-care (01) ==
LOC: MW.ED 15:59
DX: I95.1 Orthostatic hypotension (principal); E11.9 Type 2 diabetes mellitus without complications; Z79.4 Long term (current) use of insulin
CPT/HCPCS: 36415; 80053; 82009; 82803; 82947; 83735; 84484; 84703; 85025; 93005; 99283; 99284